=== PATIENT | male | born 1950 | race Two or more races ===

== ENCOUNTER 2017-03-29 12:39 | Inpatient (IN) | payer MEDICARE, MEDICAID ==
[~2017-03-29] VITALS: Ht 165.1 cm; Wt 77.1 kg
[2017-03-29] MEDS ORDERED: Magnesium Citrate Liq Btl ORAL ONE (13:00)
[2017-03-29] MEDS ORDERED: Morphine Sulfate 2mg/ml Inj IVP ONE (13:30)
[2017-03-29 13:32] VITALS: BP 175/107
--- NOTE | 2017-03-29 13:34 | Emergency Room Report ---
History of Present Illness General Chief Complaint: Abdominal Pain Source: Patient, EMS Present Illness HPI 66YOM BIBEMS with abdominal pain and unable to defecate since yesterday. Associated with gross hematuria. No nausea/vomiting, dysuria, polyuria. Last time gross hematuria was "years ago" when he had "surgery on my prostate." Denies ASA, other AC Denies other PMX Doesnt smoke. Allergies: Coded Allergies: No Known Allergies (Unverified , 03/29/17) Patient History Past Medical History: none Past Surgical History: other - prostate surgery Pertinent Family History: none Social History: Denies: alcohol use, drug use, smoking Immunizations: UTD Reviewed Nursing Documentation: PMH: Agreed, PSxH: Agreed Nursing Documentation-PMH Past Medical History: No Stated History Review of Systems All Other Systems: negative except mentioned in HPI Physical Exam Vital Signs Date Time Temp Pulse Resp B/P Pulse Ox O2 Delivery O2 Flow Rate FiO2 03/29/17 12:33 98.2 80 18 168/94 98 Room Air Sp02 EP Interpretation: reviewed, normal General Appearance: normal inspection, well appearing, no apparent distress, alert, GCS 15, non-toxic Head: normocephalic, atraumatic Eyes: bilateral eye EOMI, bilateral eye PERRL ENT: normal ENT inspection, hearing grossly normal, normal voice Neck: normal inspection, full range of motion, supple, no bony tend Respiratory: normal inspection, lungs clear, normal breath sounds, no respiratory distress, no retraction, no wheezing Cardiovascular #1: regular rate, rhythm, no edema Gastrointestinal: normal inspection, normal bowel sounds, non tender, soft, no guarding, no hernia, other - Distended abdomen. Mass ttp suprapubic area Genitourinary: other - Bedside sono: Masslike structure abutting/?invading bladder wall. 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 Afebrile. - Likely from prostate/bladder mass seen on bedside sono - Distended bladder likely compressing rectum, causing constipation - CT with 9x7x9 mass vs hematoma vs both? Also bilateral perineprhc fluid and bilateral hydroureternephrosis likely d/t obstruction - Dr Yi from Urology consulted, placed suprapubic cath bedside after RN unable to irrigate/withdraw urine/blood with placed hernandez. - Patient to go to ER in morning. - Labs: Leuks elevated. H&H stable. [place]. - Dr Curiel endorsed for med/surg admission at 530pm Last Vital Signs Date Time Temp Pulse Resp B/P Pulse Ox O2 Delivery O2 Flow Rate FiO2 03/29/17 12:33 98.2 80 18 168/94 98 Room Air Status: improved Disposition: ADMITTED INPATIENT Condition: Serious CORETTA SIMMONS M.D. Mar 29, 2017 13:34
[2017-03-29 13:45] LABS: ALBUMIN/GLOBULIN RATIO 1.5 (1.0-2.7); CALCIUM 10.4 mg/dL (8.6-10.2); CREATININE 1.3 mg/dL (0.7-1.2); GLOMERULAR FILTRATION RATE 55.2 mL/min (>60); POTASSIUM 4.2 mEQ/L (3.4-4.9); TOTAL PROTEIN 7.3 g/dL (6.6-8.7)
[2017-03-29 13:52] LABS: MEAN CORPUSCULAR HEMOGLOBIN 30.7 PG (27.0-31.0); MEAN CORPUSCULAR HGB CONC 33.2 G/DL (32.0-36.0); MEAN CORPUSCULAR VOLUME 92 FL (80-99); MEAN PLATELET VOLUME 6.8 FL (6.5-10.1); PLATELET COUNT 291 K/UL (150-450); RED BLOOD COUNT 4.51 M/UL (4.70-6.10); RED CELL DISTRIBUTION WIDTH 11.2 % (11.6-14.8); WHITE BLOOD COUNT 13.6 K/UL (4.8-10.8)
[2017-03-29] MEDS ORDERED: NKM (14:07)
[2017-03-29 14:32] LABS: LYMPHOCYTES % (MANUAL) 7 % (20-45); NEUTROPHILS % (MANUAL) 90 % (45-75); TOTAL CELLS COUNTED 100
[2017-03-29 14:33] LABS: BAND NEUTROPHILS % (MANUAL) 0 % (0-8); BASOPHILS % (MANUAL) 0 % (0-2); EOSINOPHILS % (MANUAL) 0 % (0-3); PLATELET ESTIMATE ADEQUATE; PLATELET MORPHOLOGY NORMAL
[2017-03-29] MEDS ORDERED: Lidocaine 1% MPF 10mg/ml 5ml ONE (17:25)
[2017-03-29] MEDS ORDERED: Lidocaine 1% MPF 10mg/ml 5ml IM ONE (17:30)
--- NOTE | 2017-03-29 18:20 | Consultation ---
History of Present Illness General Date patient seen: Mar 29, 2017 Time patient seen: 18:12 Chief Complaint: Abdominal Pain Reason for Consultation: hematuria, retention Present Illness HPI 66 yo male with hx of laser TURP 8 years ago comes reporting 24 hours of abdominal pain, inability to void and defacate. Noted blood clots yesterday. Reports 0 symptoms prior to yesterday. [place] like he had been voiding fine and had no other complaints. Here in ER unable to void, imaging shows significant clot retention. Unable to pass hernandez by nursing staff Allergies: Coded Allergies: No Known Allergies (Unverified , 03/29/17) Medication History Scheduled No Known Medications* (NKM - No Known Medications*), 0 ., (Reported) Patient History History Provided By: Patient Healthcare decision maker Resuscitation status Advanced Directive on File Past Medical/Surgical History Past Medical/Surgical History: (1) Abdominal pain (2) [place] (acute kidney injury) (3) S/P TURP Review of Systems Constitutional: Denies: chills, fever, malaise, no symptoms, other, see HPI, sweats, weakness Eye: Denies: acuity changes, blurred vision, discharge, double vision, eye pain , no symptoms, nose congestion, nose pain, other, see HPI, tearing ENT: Denies: ear discharge, ear pain, hearing loss, mouth pain, nasal discharge , no symptoms, nose congestion, nose pain, other, see HPI, throat pain, throat swelling Respiratory: Denies: [place], cough, no symptoms, orthopnea, other, see HPI, shortness of breath, sputum, stridor, wheezing Cardiovascular: Denies: PND, chest pain, edema, no symptoms, other, palpitations, see HPI, syncope Gastrointestinal: Reports: abdominal pain, constipation Genitourinary: Reports: hematuria, pain Musculoskeletal: Denies: back pain, gout, joint pain, joint swelling, muscle pain, muscle stiffness, no symptoms, other, see HPI Skin: Denies: change in color, change in hair/nails, dryness, lesions, no symptoms, other, rash, see HPI Psychiatric: Denies: HI, SI, anxiety, depressed feelings, emotional problems, hallucinations, no symptoms, other, prior hx, see HPI Neurological: Denies: dizziness, focal weakness, headache, no symptoms, numbness, other, paresthesia, see HPI, seizure, syncope, tingling, tremors Endocrine: Denies: excessive sweating, flushing, increased thirst, increased urine, intolerance to temperature, no symptoms, other, see HPI, unexplained weight loss Hematologic/Lymphatic: Denies: anemia, blood clots, diathesis, easy bleeding, easy bruising, no symptoms, other, see HPI, swollen glands Physical Exam General Appearance: moderate distress HEENT: atraumatic Neck: non-tender Respiratory/Chest: lungs clear Cardiovascular/Chest: normal rate, regular rhythm Abdomen: soft, distended, tender Genitourinary/Rectal: blood at urethral meatus Extremities: non-tender Skin Exam: warm/dry Neurologic: no motor/sensory deficits Last 24 Hour Vital Signs Date Time Temp Pulse Resp B/P Pulse Ox O2 Delivery O2 Flow Rate FiO2 03/29/17 13:32 98.2 115 20 175/107 99 Room Air 03/29/17 12:33 98.2 80 18 168/94 98 Room Air Laboratory Tests Test 03/29/17 13:30 White Blood Count 13.6 K/UL (4.8-10.8) H Red Blood Count 4.51 M/UL (4.70-6.10) L Hemoglobin 13.8 G/DL (14.2-18.0) L Hematocrit 41.7 % (42.0-52.0) L Mean Corpuscular Volume 92 FL (80-99) Mean Corpuscular Hemoglobin 30.7 PG (27.0-31.0) Mean Corpuscular Hemoglobin Concent 33.2 G/DL (32.0-36.0) Red Cell Distribution Width 11.2 % (11.6-14.8) L Platelet Count 291 K/UL (150-450) Mean Platelet Volume 6.8 FL (6.5-10.1) Neutrophils (%) (Auto) % (45.0-75.0) Lymphocytes (%) (Auto) % (20.0-45.0) Monocytes (%) (Auto) % (1.0-10.0) Eosinophils (%) (Auto) % (0.0-3.0) Basophils (%) (Auto) % (0.0-2.0) Differential Total Cells Counted 100 Neutrophils % (Manual) 90 % (45-75) H Lymphocytes % (Manual) 7 % (20-45) L Monocytes % (Manual) 3 % (1-10) Eosinophils % (Manual) 0 % (0-3) Basophils % (Manual) 0 % (0-2) Band Neutrophils 0 % (0-8) Platelet Estimate Adequate Platelet Morphology Normal Red Blood Cell Morphology Normal Prothrombin Time Pending Prothromb Time International Ratio Pending Activated Partial Thromboplast Time Pending Sodium Level 143 mEQ/L (135-145) Potassium Level 4.2 mEQ/L (3.4-4.9) Chloride Level 103 mEQ/L (98-107) Carbon Dioxide Level 24 mEQ/L (20-30) Anion Gap 16 (5-15) H Blood Urea Nitrogen 22 mg/dL (7-23) Creatinine 1.3 mg/dL (0.7-1.2) H Estimat Glomerular Filtration Rate 55.2 mL/min (>60) Glucose Level 196 mg/dL (74-106) H Calcium Level 10.4 mg/dL (8.6-10.2) H Total Bilirubin 0.7 mg/dL (0.0-1.2) Aspartate Amino Transf (AST/SGOT) 16 U/L (5-40) Alanine Aminotransferase (ALT/SGPT) 11 U/L (3-41) Alkaline Phosphatase 59 U/L (40-129) Total Protein 7.3 g/dL (6.6-8.7) Albumin 4.4 g/dL (3.5-5.2) Globulin 2.9 g/dL Albumin/Globulin Ratio 1.5 (1.0-2.7) Lipase 21 U/L (< 60) Height (Feet): 5 Height (Inches): 4.00 Weight (Pounds): [address]: distended bladder, 9 cm worth of clot vs. mass sitting at base of bladder, large prostate. Bilateral hydro with perinephric fluid collection and stranding Procedure: Under sterile conditions, urethral catheterization attempted with 20 and [address] as well as coudes. Unable to pass. Patient counseled on risks of SP tube. Agreed to move forward. 2 finger breadths above pubic symphysis sterilized. 10 mL 1 % lidocaine infused under skin. Finder needle used to confirm placement in bladder, immediate evacuation of dark red foul smelling urine. IntegenX 14 italian SP tube introducer kit used to puncture bladder successfully. Incision made 2 finger breadths above pubic symphysis prior to using SP tube introducer. 10 mL water filled in balloon. Immediate evacuation of 500 mL dark bloody urine. Manual irrigation of another approximately 1.5 Liters of bloody urine and clots. At end of irrigation urine was light red/brown. 1-0 silk used to secure SP tube to skin. Assessment/Plan Status: stable Assessment/Plan 66 yo male with likely progressive outlet obstruction due to some sort of urethral obstruction. Given hx of TURP, possible bladder neck contracture, chronic retention, leading to UTI, hematuria and ultimately kidney injury/ hydronephrosis. Evacuated significant amount of bloody urine. Need to evaluate lower urinary tract tomorrow under anesthesia. 1. NPO p MN 2. OR tomorrow at 0800 for cystoscopy, clot evacuation, catheter placement. Steven Yi M.D. Mar 29, 2017 18:20
[2017-03-29] MEDS ORDERED: Milk of Magnesia 30ml Ud ORAL PRN (18:30)
[2017-03-29] MEDS ORDERED: Acetaminophen 650 MG SUPP RECTAL PRN ×2 (18:30)
[2017-03-29] MEDS ORDERED: Norco 5mg/325mg tab ORAL PRN (18:30)
[2017-03-29] MEDS ORDERED: Hydromorphone 0.5mg/0.5ml inj IVP PRN (18:30)
[2017-03-29 18:36] VITALS: BP 115/74
[2017-03-29 18:51] LABS: INR 0.9 (0.9-1.1); PROTHROMBIN TIME 9.4 SEC (9.30-11.50)
[2017-03-29 19:10] VITALS: BP 152/89
--- NOTE | 2017-03-29 19:16 | History and Physical Report ---
DATE OF ADMISSION: 03/29/2017 CHIEF COMPLAINT AND REASON FOR HOSPITALIZATION: The patient is admitted with hematuria, bladder mass, unable to void, and abdominal pain. HISTORY OF PRESENT ILLNESS: The patient is a 66-year-old male, who had a prostatectomy in the late . He presented with hematuria and abdominal pain. He has currently been in good health. PAST SURGICAL HISTORY: Prostatectomy in the late . He said there was no definite cancer. CURRENT MEDICATIONS: None. ALLERGIES: None known. HABITS: He denies smoking or alcohol. SYSTEM REVIEW: HEENT: Vision and hearing are good. ENDOCRINE: No known diabetes or thyroid disease. PULMONARY: No asthma, TB, or chronic cough. CARDIAC: No angina, myocardial infarction, or palpitations. GASTROINTESTINAL: No history of GI bleeding or ulcers or chronic abdominal pain. GENITOURINARY: See above. NEUROLOGIC: No CVA, syncope, or seizures. PHYSICAL EXAMINATION: GENERAL: The patient is a well-developed man, alert, looking uncomfortable in bed, seen in the emergency department. VITAL SIGNS: Temperature 98.2 degrees, pulse 80, respirations 18, blood pressure 168/94, and O2 saturation is 98%. HEENT: Sclerae nonicteric. Ocular motion intact in all directions. Oral mucosa moist. NECK: No adenopathy. LUNGS: Clear. HEART: Regular rhythm. No murmur. ABDOMEN: Soft. Liver and spleen not palpable. There is tenderness in the suprapubic area. GENITOURINARY: Penis and testes are normal. There is some bloody urine in the bedsheet. RECTAL: Deferred. Urologist will see the patient. EXTREMITIES: No edema, cyanosis, or clubbing. Muscle mass is normal. NEUROLOGIC: He is alert and oriented. Cranial nerves are intact. PERTINENT LABORATORY DATA: CT showed a 9 x 7 x 9 cm mass versus hematoma in the bladder. He also has bilateral perinephric fluid and bilateral hydroureteral nephrosis. The other labs show white count of 13.6, hemoglobin of 13.8, and platelets 291,000. Electrolytes normal. BUN 22, creatinine 1.3, glucose 196, and calcium 10.4. Urinalysis not available. IMPRESSION: Acute likely on chronic obstructive uropathy with a bladder mass and gross hematuria. PLAN: The patient will be seen by Urology and will need a catheter or suprapubic treatment and probable cysto and further evaluation. He will be hydrated. We will give him comfort measures. We will give him empiric antibiotics in case he has superimposed urinary tract infection. Thank you so much. Yogesh Curiel M.D. DR: JOSÉ JOB#: [id number] CC:
[2017-03-29 20:00] VITALS: BP 137/82
[2017-03-29 20:07] VITALS: BP 152/89
[2017-03-29] MEDS: Docusate 100mg cap ORAL SCH (20:44)
[2017-03-29] MEDS: ceFAZolin 1gm in D5W 55ml IVP SCH (20:45)
[2017-03-29] MEDS ORDERED: Zolpidem 5mg tab ORAL PRN (21:00)
[2017-03-30] VITALS (13 sets, daily range): BP systolic 109–139; BP diastolic 54–91
[2017-03-30] MEDS: ceFAZolin 1gm in D5W 55ml IVP SCH ×3 (05:00→21:42)
[2017-03-30] MEDS ORDERED: Propofol 10mg/ml 20ml IV ONE (07:30)
[2017-03-30] MEDS ORDERED: LR 1000ml ONE (08:00)
[2017-03-30] MEDS ORDERED: Midazolam 2mg/2ml Inj ONE (08:00)
[2017-03-30] MEDS ORDERED: fentaNYL 100 mcg/2 mL IV ONE (08:00)
[2017-03-30] MEDS ORDERED: Sterile Water Irrig 1000ml IRRIG ONE (08:00)
--- NOTE | 2017-03-30 08:13 | Pre-Procedure Note/Attestation ---
Pre-Procedure Note/Attestation Complete Prior to Procedure Planned Procedure: not applicable Procedure Narrative: cystoscopy, clot evacuation, catheter placement Indications for Procedure Pre-Operative Diagnosis: hematuria, urinary retention Attestation I attest that I discussed the nature of the procedure; its benefits; risks and complications; and alternatives (and the risks and benefits of such alternatives ), prior to the procedure, with the patient (or the patient's legal maintenance representative). I attest that, if there was a reasonable possibility of needing a blood transfusion, the patient (or the patient's legal maintenance representative) was given the [facility] standardized written summary, pursuant to the Ignacio Luis M Blood Safety Act ([place] Health and Safety Code # 1645, as amended). I attest that I re-evaluated the patient just prior to the surgery and that there has been no change in the patient's H&P, except as documented below: Steven Yi M.D. Mar 30, 2017 08:13
[2017-03-30] MEDS ORDERED: Sterile Water For Irrig 2000ml IRRIG ONE (08:48)
[2017-03-30] MEDS ORDERED: NS Irrig 4000ml IRRIG ONE (08:48)
[2017-03-30] MEDS: Docusate 100mg cap ORAL SCH ×2 (09:00→21:42)
--- NOTE | 2017-03-30 09:05 | Anethesia Preoperative Eval ---
Anesthesia Pre-op PMH/ROS General Date of Evaluation: Mar 30, 2017 Time of Evaluation: 08:22 Anesthesiologist: Michelle ASA Score: ASA 3 Mallampati Score Class I : Soft palate, uvula, fauces, pillars visible Class II: Soft palate, uvula, fauces visible Class III: Soft palate, base of uvula visible Class IV: Only hard plate visible Mallampati Classification: Class II Surgeon: Kassidy Diagnosis: Hematuria Surgical Procedure: Cysto Blood clots evacuation Anesthesia History: none Family History: no anesthesia problems Allergies: Coded Allergies: No Known Allergies (Unverified , 03/29/17) Medications: see eMAR Past Medical History Cardiovascular: Reports: HTN - borderline, Denies: CAD, [place], arrhythmia, other, valve dz Pulmonary: Denies: COPD, HÉCTOR, asthma, other Gastrointestinal/Genitourinary: 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 Anesthesia Pre-op Phys. Exam Physician Exam Last Vital Signs Date Time Temp Pulse Resp B/P Pulse Ox O2 Delivery O2 Flow Rate FiO2 03/30/17 04:00 98.6 84 17 136/83 97 Room Air Constitutional: NAD Neurologic: CN 2-12 intact Cardiovascular: RRR, no M/R/G Respiratory: CTA Gastrointestinal: other - distended Airway Exam Mallampati Score: Class II MO: full Neck: flexible ROM: limited Teeth: missing Dentures: no lower, no upper Anesthesia Pre-op A/P Labs Hematology Test 03/29/17 13:30 White Blood Count 13.6 K/UL (4.8-10.8) H Red Blood Count 4.51 M/UL (4.70-6.10) L Hemoglobin 13.8 G/DL (14.2-18.0) L Hematocrit 41.7 % (42.0-52.0) L Mean Corpuscular Volume 92 FL (80-99) Mean Corpuscular Hemoglobin 30.7 PG (27.0-31.0) Mean Corpuscular Hemoglobin Concent 33.2 G/DL (32.0-36.0) Red Cell Distribution Width 11.2 % (11.6-14.8) L Platelet Count 291 K/UL (150-450) Mean Platelet Volume 6.8 FL (6.5-10.1) Neutrophils (%) (Auto) % (45.0-75.0) Lymphocytes (%) (Auto) % (20.0-45.0) Monocytes (%) (Auto) % (1.0-10.0) Eosinophils (%) (Auto) % (0.0-3.0) Basophils (%) (Auto) % (0.0-2.0) Differential Total Cells Counted 100 Neutrophils % (Manual) 90 % (45-75) H Lymphocytes % (Manual) 7 % (20-45) L Monocytes % (Manual) 3 % (1-10) Eosinophils % (Manual) 0 % (0-3) Basophils % (Manual) 0 % (0-2) Band Neutrophils 0 % (0-8) Platelet Estimate Adequate Platelet Morphology Normal Red Blood Cell Morphology Normal Coagulation Test 03/29/17 13:30 Prothrombin Time 9.4 SEC (9.30-11.50) Prothromb Time International Ratio 0.9 (0.9-1.1) Activated Partial Thromboplast Time 21 SEC (23-33) L Chemistry Test 03/29/17 13:30 Sodium Level 143 mEQ/L (135-145) Potassium Level 4.2 mEQ/L (3.4-4.9) Chloride Level 103 mEQ/L (98-107) Carbon Dioxide Level 24 mEQ/L (20-30) Anion Gap 16 (5-15) H Blood Urea Nitrogen 22 mg/dL (7-23) Creatinine 1.3 mg/dL (0.7-1.2) H Estimat Glomerular Filtration Rate 55.2 mL/min (>60) Glucose Level 196 mg/dL (74-106) H Calcium Level 10.4 mg/dL (8.6-10.2) H Total Bilirubin 0.7 mg/dL (0.0-1.2) Aspartate Amino Transf (AST/SGOT) 16 U/L (5-40) Alanine Aminotransferase (ALT/SGPT) 11 U/L (3-41) Alkaline Phosphatase 59 U/L (40-129) Total Protein 7.3 g/dL (6.6-8.7) Albumin 4.4 g/dL (3.5-5.2) Globulin 2.9 g/dL Albumin/Globulin Ratio 1.5 (1.0-2.7) Lipase 21 U/L (< 60) Risk Assessment & Plan Assessment: ASA 3 Plan: GA with LMA Status Change Before Surgery: No Pre-Antibiotics Drug: Ancef 1 gr. Given Within 1 Hr of Incision: Yes Time Given: 08:31 NIA RIOS M.D. Mar 30, 2017 09:05
--- NOTE | 2017-03-30 09:11 | Diagnostic Imaging Report ---
Indication: Abdominal pain Technique: Continuous helical transaxial imaging of the abdomen and pelvis was obtained from the lung bases to the pubic symphysis during intravenous contrast administration. Coronal 2-D reformats were also obtained. Study obtained in a Siemens sensation [address] Total Dose length Product (DLP): [address] Dose Index Volume (CTDIvol): 17 mGy Comparison: None Findings: Urinary bladder is markedly distended. There is hematoma present within the bladder lumen. There is bilateral hydronephrosis likely secondary to this with perinephric stranding. The prostate is enlarged and heterogeneous in appearance measuring approximately 6 x 5.8 x 7.3 cm. Basilar atelectasis demonstrated. Liver attenuation is slightly low. Gallbladder, adrenal glands, pancreas and spleen are unremarkable. No evidence of bowel obstruction or free air. Mild arterial vascular calcifications and tortuosity of the aorta noted. Mild compression fracture deformity of the T12 vertebra noted. Appendix is normal. Impression: Bladder outlet impediment to due to large intraluminal hematoma. Associated moderate bilateral hydronephrosis and perinephric stranding. Superimposed infection is not excludable. Prostate hypertrophy. Mild atherosclerotic vascular disease Basilar atelectasis Dr. Maldonado has communicated the preliminary results to the Emergency Department. There are no significant discrepancies. The CT scanner at [facility] is accredited by the [employer] and the scans are performed using dose optimization techniques as appropriate to a performed exam including Automatic Exposure control.
[2017-03-30] MEDS ORDERED: Meperidine 25mg/0.5ml Inj IV PRN (09:15)
[2017-03-30] MEDS ORDERED: Hydromorphone 0.5mg/0.5ml inj IVP PRN (09:15)
[2017-03-30] MEDS ORDERED: DiphenhydrAMINE 50mg/ml Inj IVP PRN (09:15)
[2017-03-30] MEDS ORDERED: LR 1000ml 1,000 ML IVLG SCH (09:30)
--- NOTE | 2017-03-30 10:01 | Immediate Post-Op Evaluation ---
Immediate Post-Op Evalulation Immediate Post-Op Evalulation Procedure: Cysto, clots evacuation, partial TUPR Date of Evaluation: Mar 30, 2017 Time of Evaluation: 10:00 IV Fluids: 600 Blood Products: none Estimated Blood Loss: 150 Urinary Output: n/a Blood Pressure Systolic: 125 Blood Pressure Diastolic: 78 Pulse Rate: 81 Respiratory Rate: 20 O2 Sat by Pulse Oximetry: 99 Temperature (Fahrenheit): 97.8 Pain Score (1-10): 2 Nausea: No Vomiting: No Complications none Patient Status: reacts, patent, none Hydration Status: adequate NIA RIOS M.D. Mar 30, 2017 10:01
--- NOTE | 2017-03-30 10:02 | Brief Operative Note ---
Immediate Post Operative Note Operative Note Pre-op Diagnosis: hematuria, urinary retention Procedure: cysto, partial TURP, clot evacuation, catheter placement Post-op Diagnosis: same as pre-op Surgeon: gee Tax Revenue Officer: nicola Anesthesia: general Specimen: none Complications: none Condition: stable Estimated Blood Loss: minimal Drains: other - [address] hernandez 30 mL water in balloon Steven Yi M.D. Mar 30, 2017 10:02
--- NOTE | 2017-03-30 10:10 | Urology Progress Note ---
Assessment/Plan Status: stable Assessment/Plan Tolerated cystoscopy well today. Old clots evacuated, likely source if prostate. large bore urethral hernandez placed, on continuous irrigation. SP tube clamped 1. f/u CBC, CMP today 2. continuous irrigation for 24 hours 3. re-evaluate urine color tomorrow afternoon 4. leave SP tube in place for now, plugged Subjective Date patient seen: Mar 30, 2017 Time patient seen: 10:07 ROS Limited/Unobtainable: No Constitutional: Denies: chills, diaphoresis, fever, malaise, no symptoms, other , weakness HEENT: Denies: blurred vision, double vision, ear discharge, ear pain, eye pain , mouth pain, mouth swelling, no symptoms, nose congestion, nose pain, other, tearing, throat pain, throat swelling Cardiovascular: Denies: chest pain, edema, irregular heart rate, lightheadedness, no symptoms, other, palpitations, syncope Respiratory: Denies: SOB at rest, SOB with excertion, cough, no symptoms, orthopnea, other, shortness of breath, sputum, stridor, wheezing Gastrointestinal/Abdominal: Reports: abdominal pain Genitourinary: Reports: burning Neurologic/Psychiatric: Denies: anxiety, depressed, emotional problems, headache, no symptoms, numbness, other, paresthesia, pre-existing deficit, seizure, tingling, tremors, weakness Endocrine: Denies: excessive sweating, flushing, increased hunger, increased thirst, increased urine, intolerance to cold, intolerance to heat, no symptoms, other, unexplained weight gain, unexplained weight loss Hematologic/Lymphatic: Denies: anemia, easy bleeding, easy bruising, no symptoms, other Allergies: Coded Allergies: No Known Allergies (Unverified , 03/29/17) Subjective trouble irrigating catheter this AM, feeling more bloating, generally feels better Objective Last 24 Hour Vital Signs Date Time Temp Pulse Resp B/P Pulse Ox O2 Delivery O2 Flow Rate FiO2 03/30/17 10:01 81 20 99 03/30/17 08:00 96.4 82 18 137/86 95 Room Air 03/30/17 04:00 98.6 84 17 136/83 97 Room Air 03/30/17 00:00 98.2 84 17 114/89 97 Room Air 03/29/17 20:07 92 24 152/89 97 Room Air 03/29/17 20:07 97.7 92 24 152/89 97 Room Air 03/29/17 20:00 97.0 86 24 137/82 97 Room Air 03/29/17 19:10 97.7 92 24 152/89 97 Room Air 03/29/17 18:36 97.7 78 18 115/74 98 Room Air 03/29/17 13:32 98.2 115 20 175/107 99 Room Air 03/29/17 12:33 98.2 80 18 168/94 98 Room Air Intake and Output 03/29/17 03/30/17 19:00 07:00 Intake Total 525 ml Output Total 2000 ml 275 ml Balance -2000 ml 250 ml Intake IV Total 525 ml Output Urine Total 2000 ml 275 ml # Voids 1 # Bowel Movements 1 Laboratory Tests 03/29/17 13:30: White Blood Count 13.6H, Red Blood Count 4.51L, Hemoglobin 13.8L, Hematocrit 41.7L, Mean Corpuscular Volume 92, Mean Corpuscular Hemoglobin 30.7, Mean Corpuscular Hemoglobin Concent 33.2, Red Cell Distribution Width 11.2L, Platelet Count 291, Mean Platelet Volume 6.8, Neutrophils (%) (Auto) , Lymphocytes (%) (Auto) , Monocytes (%) (Auto) , Eosinophils (%) (Auto) , Basophils (%) (Auto) , Differential Total Cells Counted 100, Neutrophils % ( Manual) 90H, Lymphocytes % (Manual) 7L, Monocytes % (Manual) 3, Eosinophils % ( Manual) 0, Basophils % (Manual) 0, Band Neutrophils 0, Platelet Estimate Adequate, Platelet Morphology Normal, Red Blood Cell Morphology Normal, Prothrombin Time 9.4, Prothromb Time International Ratio 0.9, Activated Partial Thromboplast Time 21L, Sodium Level 143, Potassium Level 4.2, Chloride Level 103 , Carbon Dioxide Level 24, Anion Gap 16H, Blood Urea Nitrogen 22, Creatinine 1.3H, Estimat Glomerular Filtration Rate 55.2, Glucose Level 196H, Calcium Level 10.4H, Total Bilirubin 0.7, Aspartate Amino Transf (AST/SGOT) 16, Alanine Aminotransferase (ALT/SGPT) 11, Alkaline Phosphatase 59, Total Protein 7.3, Albumin 4.4, Globulin 2.9, Albumin/Globulin Ratio 1.5, Lipase 21 Height (Feet): 5 Height (Inches): 5.00 Weight (Pounds): 170 General Appearance: mild distress Abdomen: soft, distended Genitourinary/Rectal: other - SP tube in place Steven Yi M.D. Mar 30, 2017 10:10
[2017-03-30 11:28] LABS: BASOPHILS % (AUTO) 0.3 % (0.0-2.0); EOSINOPHILS % (AUTO) 0.1 % (0.0-3.0); MEAN CORPUSCULAR HEMOGLOBIN 31.1 PG (27.0-31.0); MEAN CORPUSCULAR HGB CONC 32.8 G/DL (32.0-36.0); MEAN CORPUSCULAR VOLUME 95 FL (80-99); MEAN PLATELET VOLUME 6.4 FL (6.5-10.1); MONOCYTES % (AUTO) 7.8 % (1.0-10.0); NEUTROPHILS % (AUTO) 80.8 % (45.0-75.0); PLATELET COUNT 233 K/UL (150-450); RED BLOOD COUNT 3.52 M/UL (4.70-6.10); WHITE BLOOD COUNT 15.1 K/UL (4.8-10.8)
[2017-03-30 11:39] LABS: ANION GAP 12 (5-15); CARBON DIOXIDE 28 mEQ/L (20-30); CHLORIDE 108 mEQ/L (98-107); CREATININE 1.2 mg/dL (0.7-1.2); GLOMERULAR FILTRATION RATE > 60 mL/min (>60); HEMOLYSIS 4; POTASSIUM 4.6 mEQ/L (3.4-4.9); SODIUM 148 mEQ/L (135-145)
--- NOTE | 2017-03-30 12:40 | General Progress Note ---
Assessment/Plan Problem List: (1) Constipation ICD Codes: K59.00 - Constipation, unspecified SNOMED: 39965022 Qualifiers: Qualified Codes: K59.00 - Constipation, unspecified (2) Hyperglycemia ICD Codes: R73.9 - Hyperglycemia, unspecified SNOMED: 50755191 (3) Gross hematuria ICD Codes: R31.0 - Gross hematuria SNOMED: 992771259 (4) Bladder mass ICD Codes: N32.89 - Other specified disorders of bladder SNOMED: 705131309 (5) Bilateral hydronephrosis ICD Codes: N13.30 - Unspecified hydronephrosis SNOMED: 16184025 (6) [place] (acute kidney injury) ICD Codes: N17.9 - Acute kidney failure, unspecified SNOMED: 53692100 Assessment/Plan observe post turp, bladder irrigation Subjective Constitutional: Reports: other - mild pain postop HEENT: Reports: no symptoms Cardiovascular: Reports: no symptoms Respiratory: Reports: no symptoms Gastrointestinal/Abdominal: Reports: no symptoms Genitourinary: Reports: hematuria Neurologic/Psychiatric: Reports: no symptoms Endocrine: Reports: no symptoms Allergies: Coded Allergies: No Known Allergies (Unverified , 03/29/17) Objective Last 24 Hour Vital Signs Date Time Temp Pulse Resp B/P Pulse Ox O2 Delivery O2 Flow Rate FiO2 03/30/17 11:00 98.3 77 14 139/78 100 Nasal Cannula 3.0 03/30/17 10:45 80 15 135/87 100 Nasal Cannula 3.0 03/30/17 10:30 84 16 129/91 100 Simple Mask 6.0 03/30/17 10:15 70 15 124/79 100 Simple Mask 6.0 03/30/17 10:04 77 14 118/85 100 Simple Mask 6.0 03/30/17 10:01 81 20 99 03/30/17 09:59 79 16 117/85 100 Simple Mask 6.0 03/30/17 09:54 98.0 81 17 125/86 100 Simple Mask 6.0 03/30/17 08:00 96.4 82 18 137/86 95 Room Air 03/30/17 04:00 98.6 84 17 136/83 97 Room Air 03/30/17 00:00 98.2 84 17 114/89 97 Room Air 03/29/17 20:07 92 24 152/89 97 Room Air 03/29/17 20:07 97.7 92 24 152/89 97 Room Air 03/29/17 20:00 97.0 86 24 137/82 97 Room Air 03/29/17 19:10 97.7 92 24 152/89 97 Room Air 03/29/17 18:36 97.7 78 18 115/74 98 Room Air 03/29/17 13:32 98.2 115 20 175/107 99 Room Air Intake and Output 03/29/17 03/30/17 19:00 07:00 Intake Total 525 ml Output Total 2000 ml 275 ml Balance -2000 ml 250 ml Intake IV Total 525 ml Output Urine Total 2000 ml 275 ml # Voids 1 # Bowel Movements 1 Laboratory Tests 03/29/17 13:30: White Blood Count 13.6H, Red Blood Count 4.51L, Hemoglobin 13.8L, Hematocrit 41.7L, Mean Corpuscular Volume 92, Mean Corpuscular Hemoglobin 30.7, Mean Corpuscular Hemoglobin Concent 33.2, Red Cell Distribution Width 11.2L, Platelet Count 291, Mean Platelet Volume 6.8, Neutrophils (%) (Auto) , Lymphocytes (%) (Auto) , Monocytes (%) (Auto) , Eosinophils (%) (Auto) , Basophils (%) (Auto) , Differential Total Cells Counted 100, Neutrophils % ( Manual) 90H, Lymphocytes % (Manual) 7L, Monocytes % (Manual) 3, Eosinophils % ( Manual) 0, Basophils % (Manual) 0, Band Neutrophils 0, Platelet Estimate Adequate, Platelet Morphology Normal, Red Blood Cell Morphology Normal, Prothrombin Time 9.4, Prothromb Time International Ratio 0.9, Activated Partial Thromboplast Time 21L, Sodium Level 143, Potassium Level 4.2, Chloride Level 103 , Carbon Dioxide Level 24, Anion Gap 16H, Blood Urea Nitrogen 22, Creatinine 1.3H, Estimat Glomerular Filtration Rate 55.2, Glucose Level 196H, Calcium Level 10.4H, Total Bilirubin 0.7, Aspartate Amino Transf (AST/SGOT) 16, Alanine Aminotransferase (ALT/SGPT) 11, Alkaline Phosphatase 59, Total Protein 7.3, Albumin 4.4, Globulin 2.9, Albumin/Globulin Ratio 1.5, Lipase 21 03/30/17 11:10: White Blood Count 15.1H, Red Blood Count 3.52L, Hemoglobin 11.0L, Hematocrit 33.4L, Mean Corpuscular Volume 95, Mean Corpuscular Hemoglobin 31.1H, Mean Corpuscular Hemoglobin Concent 32.8, Red Cell Distribution Width 12.0, Platelet Count 233, Mean Platelet Volume 6.4L, Neutrophils (%) (Auto) 80.8H, Lymphocytes (%) (Auto) 11.0L, Monocytes (%) (Auto) 7.8, Eosinophils (%) (Auto) 0.1, Basophils (%) (Auto) 0.3, Sodium Level 148H, Potassium Level 4.6, Chloride Level 108H, Carbon Dioxide Level 28, Anion Gap 12, Blood Urea Nitrogen 28H, Creatinine 1.2, Estimat Glomerular Filtration Rate > 60, Glucose Level 113H, Calcium Level 9.0 Height (Feet): 5 Height (Inches): 5.00 Weight (Pounds): 170 General Appearance: no apparent distress, alert EENT: normal ENT inspection Neck: normal alignment Cardiovascular: normal rate Respiratory/Chest: lungs clear Abdomen: non tender, other - sp tube plugged Extremities: other - no edema VU BEAVERS Mar 30, 2017 12:40
--- NOTE | 2017-03-30 12:46 | Operative Note - Dictated ---
DATE OF OPERATION: 03/30/2017 NAME OF PRIMARY SURGEON: Steven Yi M.D. PREOPERATIVE DIAGNOSIS: Hematuria. POSTOPERATIVE DIAGNOSES: 1. Hematuria. 2. BPH. PROCEDURE PERFORMED: Cystoscopy, partial transurethral resection of prostate, clot evacuation, and complex catheter placement. ANESTHESIA: General. EBL: Less than 50 mL. COMPLICATIONS: None. DRAINS: A 22-Rwandan, three-way Hale catheter with 30 mL of water in the balloon. Pre-existing 14-Rwandan suprapubic catheter. SPECIMEN: None. PREOP HISTORY: This is a very pleasant 66-year-old gentleman, who apparently underwent prostate procedure at [facility] 8 years ago. He reports 24 hours prior to admission, severe pain, increasing abdominal distention, constipation, and hematuria. In the ER, I was unable to be catheterized the suprapubic tube by myself and about 2.5 liters of bloody clotted urine was evacuated from the bladder. I counseled the patient that we will ultimately need to perform cystoscopy as the source of the bleeding has not been addressed and he likely has persistent blood clots. The patient understood that, he needs cystoscopy for further evaluation. He understood the risks and benefits of intervening. Risks including, but not limited to bleeding, infection, bladder injury, ureteral injury, urethral injury, recurrent bleeding, and need for further procedures. The patient understood these risks, signed the consent, and taken to the operating room. OPERATIVE PROCEDURE: The patient brought into the operating room. General anesthesia was achieved easily. He was placed in the dorsal lithotomy position and all pressure points were padded. The perineum was prepped and draped in sterile fashion. He received preoperative antibiotics on the floor. A 23-Rwandan cystoscope sheath was placed. The anterior urethra was free of stricture and otherwise normal. The posterior urethra was entered showing a significantly elevated median lobe with minor intravesical portion and significant lateral lobar hypertrophy. There was an obvious bleeding coming from the median lobe especially at 5 and 7 o'clock region of the prostatic urethra. Within the bladder, the suprapubic tube was seen and there was a large amount of clot. Sudiksha evacuator was used to evacuate approximately 700 mL of old blood clot. The bladder was then interrogated very specifically. Bilateral ureteral orifices were seen. There was moderate trabeculation and a suprapubic tube once again was in good position. At this point, there was obvious bleeding noted at the bladder neck at prostatovesical junction especially at 5 and 7 o'clock and elevated median lobe that seemed to be very bloody and irritated as well. A 27-Rwandan Olympus bipolar resectoscope was placed and the button device was used to fulgurate and resect the median lobe and bleeding at 5 and 7 o'clock. Once adequate hemostasis had been achieved, the bladder was evacuated of any residual clot. Scope was removed and a 22-Rwandan, three-way catheter was placed with the assistance of a catheter guide due to the high nature of the median lobe and an acute angle. A 30 mL of water was filled in the balloon and the catheter was irrigated easily. A light pink urine at the end of the case after was attached to continuous bladder irrigation. The patient tolerated the procedure well. He was woken up and taken to recovery in stable fashion. I was present for the entire case. All instrument counts correct at the end of the case. PLAN: 1. The patient will be observed over the course of today. Continuous irrigation through tomorrow. 2. Followup blood and urine quality tomorrow afternoon. If clear, can go home with Folic catheter and SP tube with plan removing Hale catheter, after the urine quality has improved off irrigation. 3. Likely source prostate bleeding, possible irritation from urinary tract infection as well. Steven Yi DR: SHERLY JOB#: [id number] CC: [email or web address]
[2017-03-31] VITALS: BP 99/63
[2017-03-31 04:00] VITALS: BP 116/65
[2017-03-31] MEDS: ceFAZolin 1gm in D5W 55ml IVP SCH ×3 (05:44→20:51)
--- NOTE | 2017-03-31 07:32 | General Progress Note ---
Assessment/Plan Problem List: (1) Constipation ICD Codes: K59.00 - Constipation, unspecified SNOMED: 41305722 Qualifiers: Qualified Codes: K59.00 - Constipation, unspecified (2) Hyperglycemia ICD Codes: R73.9 - Hyperglycemia, unspecified SNOMED: 71213039 (3) Gross hematuria ICD Codes: R31.0 - Gross hematuria SNOMED: 931517118 (4) Bladder mass ICD Codes: N32.89 - Other specified disorders of bladder SNOMED: 531121028 (5) Bilateral hydronephrosis ICD Codes: N13.30 - Unspecified hydronephrosis SNOMED: 98030441 (6) [place] (acute kidney injury) ICD Codes: N17.9 - Acute kidney failure, unspecified SNOMED: 86753266 Assessment/Plan observe post turp, bladder irrigation, mobilize Subjective Constitutional: Reports: weakness HEENT: Reports: no symptoms Cardiovascular: Reports: no symptoms Respiratory: Reports: no symptoms Gastrointestinal/Abdominal: Reports: no symptoms Genitourinary: Reports: hematuria Neurologic/Psychiatric: Reports: no symptoms Endocrine: Reports: no symptoms Hematologic/Lymphatic: Reports: no symptoms Allergies: Coded Allergies: No Known Allergies (Unverified , 03/29/17) Objective Last 24 Hour Vital Signs Date Time Temp Pulse Resp B/P Pulse Ox O2 Delivery O2 Flow Rate FiO2 03/31/17 04:00 98.1 67 18 116/65 99 Nasal Cannula 2.0 03/31/17 00:00 98.6 78 18 99/63 93 Room Air 03/30/17 20:00 98.6 83 18 109/66 94 Room Air 03/30/17 16:45 97.9 82 20 118/66 97 Nasal Cannula 2.0 03/30/17 12:00 98.3 76 18 126/54 100 Nasal Cannula 3.0 03/30/17 11:00 98.3 77 14 139/78 100 Nasal Cannula 3.0 03/30/17 10:45 80 15 135/87 100 Nasal Cannula 3.0 03/30/17 10:30 84 16 129/91 100 Simple Mask 6.0 03/30/17 10:15 70 15 124/79 100 Simple Mask 6.0 03/30/17 10:04 77 14 118/85 100 Simple Mask 6.0 03/30/17 10:01 81 20 99 03/30/17 09:59 79 16 117/85 100 Simple Mask 6.0 03/30/17 09:54 98.0 81 17 125/86 100 Simple Mask 6.0 03/30/17 08:00 96.4 82 18 137/86 95 Room Air Intake and Output 03/30/17 03/31/17 19:00 07:00 Intake Total 1245 ml 1085 ml Output Total 1050 ml 1100 ml Balance 195 ml -15 ml Intake Oral 120 ml 150 ml IV Total 1125 ml 935 ml Output Urine Total 900 ml 1100 ml Estimated Blood Loss 150 ml Laboratory Tests 03/30/17 11:10: White Blood Count 15.1H, Red Blood Count 3.52L, Hemoglobin 11.0L, Hematocrit 33.4L, Mean Corpuscular Volume 95, Mean Corpuscular Hemoglobin 31.1H, Mean Corpuscular Hemoglobin Concent 32.8, Red Cell Distribution Width 12.0, Platelet Count 233, Mean Platelet Volume 6.4L, Neutrophils (%) (Auto) 80.8H, Lymphocytes (%) (Auto) 11.0L, Monocytes (%) (Auto) 7.8, Eosinophils (%) (Auto) 0.1, Basophils (%) (Auto) 0.3, Sodium Level 148H, Potassium Level 4.6, Chloride Level 108H, Carbon Dioxide Level 28, Anion Gap 12, Blood Urea Nitrogen 28H, Creatinine 1.2, Estimat Glomerular Filtration Rate > 60, Glucose Level 113H, Calcium Level 9.0 Height (Feet): 5 Height (Inches): 5.00 Weight (Pounds): 170 General Appearance: WD/WN, no apparent distress EENT: PERRL/EOMI Neck: non-tender Cardiovascular: normal rate, regular rhythm Respiratory/Chest: lungs clear Abdomen: soft, other - sp tube Extremities: other - no edema VU BEAVERS Mar 31, 2017 07:32
[2017-03-31 08:00] VITALS: BP 135/73
[2017-03-31 08:47] LABS: BASOPHILS % (AUTO) 0.8 % (0.0-2.0); EOSINOPHILS % (AUTO) 4.3 % (0.0-3.0); LYMPHOCYTES % (AUTO) 18.1 % (20.0-45.0); MEAN CORPUSCULAR HGB CONC 33.5 G/DL (32.0-36.0); MEAN CORPUSCULAR VOLUME 96 FL (80-99); MEAN PLATELET VOLUME 7.3 FL (6.5-10.1); MONOCYTES % (AUTO) 7.9 % (1.0-10.0); NEUTROPHILS % (AUTO) 69.1 % (45.0-75.0); PLATELET COUNT 216 K/UL (150-450); RED BLOOD COUNT 3.24 M/UL (4.70-6.10); RED CELL DISTRIBUTION WIDTH 11.8 % (11.6-14.8); WHITE BLOOD COUNT 11.7 K/UL (4.8-10.8)
[2017-03-31 08:52] LABS: ANION GAP 9 (5-15); CALCIUM 8.7 mg/dL (8.6-10.2); CARBON DIOXIDE 29 mEQ/L (20-30); CHLORIDE 104 mEQ/L (98-107); CREATININE 0.8 mg/dL (0.7-1.2); GLOMERULAR FILTRATION RATE > 60 mL/min (>60); HEMOLYSIS 3; SODIUM 142 mEQ/L (135-145)
[2017-03-31] MEDS ORDERED: NS Irrig 4000ml IRRIG ONE (09:03)
[2017-03-31] MEDS: Docusate 100mg cap ORAL SCH ×2 (11:03→20:51)
[2017-03-31 11:59] VITALS: BP 126/75
[2017-03-31 16:16] VITALS: BP 131/81
--- NOTE | 2017-03-31 18:07 | 48 Hour Post Anesthesia Eval ---
Post Anesthesia Evaluation Procedure: Cysto, clots evacuation, partial TUPR Date of Evaluation: Mar 31, 2017 Time of Evaluation: 18:00 Blood Pressure Systolic: 131 0: 81 Pulse Rate: 97 Respiratory Rate: 20 Temperature (Fahrenheit): 98.1 O2 Sat by Pulse Oximetry: 99 Airway: patent Nausea: No Vomiting: No Pain Intensity: 2 Hydration Status: adequate Cardiopulmonary Status: at baseline Mental Status/LOC: patient returned to baseline Post-Anesthesia Complications: 0 Follow-up care needed: N/A - further care as per primary team MEGHNA SHULTZ M.D. Mar 31, 2017 18:07
[2017-03-31 20:00] VITALS: BP 132/79
[2017-04-01] VITALS: BP 119/58
[2017-04-01 04:00] VITALS: BP 120/78
[2017-04-01] MEDS: ceFAZolin 1gm in D5W 55ml IVP SCH ×2 (05:46→17:51)
[2017-04-01] MEDS: Docusate 100mg cap ORAL SCH (08:34)
[2017-04-01 08:39] VITALS: BP 120/81
--- NOTE | 2017-04-01 10:13 | General Progress Note ---
Assessment/Plan Problem List: (1) Constipation ICD Codes: K59.00 - Constipation, unspecified SNOMED: 63244164 Qualifiers: Qualified Codes: K59.00 - Constipation, unspecified (2) Hyperglycemia ICD Codes: R73.9 - Hyperglycemia, unspecified SNOMED: 24539349 (3) Gross hematuria ICD Codes: R31.0 - Gross hematuria SNOMED: 648366184 (4) Bladder mass ICD Codes: N32.89 - Other specified disorders of bladder SNOMED: 575539136 (5) Bilateral hydronephrosis ICD Codes: N13.30 - Unspecified hydronephrosis SNOMED: 22682705 (6) [place] (acute kidney injury) ICD Codes: N17.9 - Acute kidney failure, unspecified SNOMED: 62306507 Assessment/Plan observe post turp, bladder irrigation, urine clearing mobilize, dispo per urology Subjective Constitutional: Reports: no symptoms HEENT: Reports: no symptoms Cardiovascular: Reports: no symptoms Respiratory: Reports: no symptoms Gastrointestinal/Abdominal: Reports: no symptoms Genitourinary: Reports: hematuria Neurologic/Psychiatric: Reports: no symptoms Endocrine: Reports: no symptoms Hematologic/Lymphatic: Reports: no symptoms Allergies: Coded Allergies: No Known Allergies (Unverified , 03/29/17) Objective Last 24 Hour Vital Signs Date Time Temp Pulse Resp B/P Pulse Ox O2 Delivery O2 Flow Rate FiO2 04/01/17 08:39 97.7 77 20 120/81 97 Room Air 04/01/17 04:00 98.4 70 18 120/78 97 Room Air 04/01/17 00:00 98.8 67 18 119/58 95 Room Air 03/31/17 20:00 99.0 100 18 132/79 95 Room Air 03/31/17 18:07 97 20 99 03/31/17 16:16 98.1 97 20 131/81 99 Room Air 03/31/17 11:59 97.6 97 20 126/75 98 Room Air Intake and Output 03/31/17 04/01/17 19:00 07:00 Intake Total 1215 ml 200 ml Output Total 1550 ml 1000 ml Balance -335 ml -800 ml Intake Oral 1215 ml 200 ml Output Urine Total 1550 ml 1000 ml # Voids 3 # Bowel Movements 1 Height (Feet): 5 Height (Inches): 5.00 Weight (Pounds): 170 General Appearance: WD/WN, no apparent distress, alert EENT: normal ENT inspection Neck: non-tender Cardiovascular: normal rate, regular rhythm Respiratory/Chest: lungs clear Abdomen: non tender, soft, other - sp tube Edema: no edema noted Arm (L), no edema noted Arm (R), no edema noted Leg (L), no edema noted Leg (R), no edema noted Pedal (L), no edema noted Pedal (R), no edema noted Generalized 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
[2017-04-01 11:57] VITALS: BP 127/83
--- NOTE | 2017-04-01 13:26 | Urology Progress Note ---
Assessment/Plan Assessment/Plan Doing well POD 2 s/p TURP. Urine yellow 1. DC home today with hernandez to leg bag 2. keep SP tube plugged 3. f/u 1 week office visit voiding trial, if voiding ok will then remove SP tube. Subjective Date patient seen: Apr 01, 2017 Time patient seen: 13:24 ROS Limited/Unobtainable: No Constitutional: Denies: chills, diaphoresis, fever, malaise, no symptoms, other , weakness HEENT: Denies: blurred vision, double vision, ear discharge, ear pain, eye pain , mouth pain, mouth swelling, no symptoms, nose congestion, nose pain, other, tearing, throat pain, throat swelling Cardiovascular: Denies: chest pain, edema, irregular heart rate, lightheadedness, no symptoms, other, palpitations, syncope Respiratory: Denies: SOB at rest, SOB with excertion, cough, no symptoms, orthopnea, other, shortness of breath, sputum, stridor, wheezing Gastrointestinal/Abdominal: Denies: abdomen distended, abdominal pain, black stools, blood in stool, constipated, diarrhea, difficulty swallowing, nausea, no symptoms, other, poor appetite, poor fluid intake, rectal bleeding, tarry stools, vomiting Genitourinary: Denies: burning, discharge, flank pain, frequency, hematuria, incontinence, no symptoms, other, pain, urgency Neurologic/Psychiatric: Denies: anxiety, depressed, emotional problems, headache, no symptoms, numbness, other, paresthesia, pre-existing deficit, seizure, tingling, tremors, weakness Endocrine: Denies: excessive sweating, flushing, increased hunger, increased thirst, increased urine, intolerance to cold, intolerance to heat, no symptoms, other, unexplained weight gain, unexplained weight loss Hematologic/Lymphatic: Denies: anemia, easy bleeding, easy bruising, no symptoms, other Allergies: Coded Allergies: No Known Allergies (Unverified , 03/29/17) Subjective feeling great. minimal pain, urine yellow Objective Last 24 Hour Vital Signs Date Time Temp Pulse Resp B/P Pulse Ox O2 Delivery O2 Flow Rate FiO2 04/01/17 11:57 97.6 82 20 127/83 95 Room Air 04/01/17 08:39 97.7 77 20 120/81 97 Room Air 04/01/17 04:00 98.4 70 18 120/78 97 Room Air 04/01/17 00:00 98.8 67 18 119/58 95 Room Air 03/31/17 20:00 99.0 100 18 132/79 95 Room Air 03/31/17 18:07 97 20 99 03/31/17 16:16 98.1 97 20 131/81 99 Room Air Intake and Output 03/31/17 04/01/17 19:00 07:00 Intake Total 1215 ml 200 ml Output Total 1550 ml 1000 ml Balance -335 ml -800 ml Intake Oral 1215 ml 200 ml Output Urine Total 1550 ml 1000 ml # Voids 3 # Bowel Movements 1 Height (Feet): 5 Height (Inches): 5.00 Weight (Pounds): 170 General Appearance: no apparent distress Abdomen: soft Genitourinary/Rectal: other - hernandez in place, yellow urine Steven Yi M.D. Apr 01, 2017 13:26
[2017-04-01 15:24] VITALS: BP 126/89
[2017-04-01] MEDS ORDERED: Tubing IV Secondary IV ONE (19:09)
[2017-04-01] MEDS ORDERED: 1/2 NS 1000ml IV ONE (19:09)
--- NOTE | 2017-04-02 14:42 | Discharge Summary ---
Discharge Summary Hospital Course Date of Admission Mar 29, 2017 at 14:43 Date of Discharge Apr 01, 2017 at 19:10 Admitting Diagnosis obstructive renal failure KATYA Brumfield is a 66 year old male who was admitted on Mar 29, 2017 at 14:43 for Obstructive Renal Failure Hospital Course dc summary #[id number] Discharge Condition Upon Discharge: stable Discharge Disposition Patient was discharged to Home (01) Discharge Diagnoses: Discharge Instructions Discharge Instructions Special Instructions I have been assigned to complete a D/C Summary on this account. I was not involved in the patient management Carly Mtz NP (Vanchtein) Apr 02, 2017 14:42
--- NOTE | 2017-04-02 23:45 | Discharge Summary ---
DATE OF ADMISSION: 03/29/2017 DATE OF DISCHARGE: 04/01/2017 PERTINENT HISTORY: The patient is a generally healthy man with history of prior prostatectomy many years ago presents with gross hematuria and abdominal pain. PERTINENT PHYSICAL FINDINGS: See my dictated H and P. LUNGS: Clear. HEART: Regular rhythm. No murmur. ABDOMEN: Soft. Liver and spleen not palpable. There is some tenderness in the suprapubic area. Penis and testes normal. There is bloody urine in the bed sheet. COURSE IN THE HOSPITAL: CT scan showed a 9 x 7 x 9 centimeter mass versus hematoma in the bladder. He was seen by Dr. Yi who performed suprapubic cystotomy. He subsequently underwent surgery on 03/30/2017 with cystoscopy, partial transurethral resection of prostate, clot evacuation, and complex catheter placement. He tolerated the procedure well. Pathology pending at the time of surgery. His urine cleared with the drainage and the patient felt well. His suprapubic catheter was clamped and he had a Hale catheter. He had a stable situation and he was discharged home in stable condition. FINAL DIAGNOSES: 1. Gross hematuria. 2. Large clot in the bladder. 3. Benign prostatic hypertrophy. Pathology pending. 4. History of suprapubic tube placed. DISCHARGE DISPOSITION: The patient discharged home and will be followed up by Dr. Yi and his primary care physician. DISCHARGE MEDICATIONS: List per Dr. Yi Yogesh Curiel M.D. DR: Amanda JOB#: [id number] CC:
--- NOTE | 2017-04-03 04:45 | Discharge Summary 2 SIG ---
DATE OF ADMISSION: 03/29/2017 DATE OF DISCHARGE: 04/01/2017 The patient was admitted under Dr. Curiel. REASON FOR ADMISSION: The patient is a 66-year-old male with history of prostatectomy years ago, presented with hematuria and abdominal pain. CT of the abdomen revealed a 9 x 7 x 9 cm mass versus hematoma in the bladder. The patient also had bilateral perinephric fluid and bilateral hydroureteronephrosis. White blood count 13.6, hemoglobin 13.8, and platelets 291,000. Electrolytes stable, BUN 22, creatinine 1.3, glucose 196, and calcium 10.4. Urinalysis was not done. The patient was admitted for further management. ADMITTING DIAGNOSES: Include, 1. Acute on chronic obstructive uropathy. 2. Bladder mass. 3. Gross hematuria. 4. Bilateral hydroureteronephrosis. 5. Acute kidney injury. 6. Hyperglycemia. HOSPITAL STAY: The patient was admitted. The patient was started on IV fluids. Urology consult was requested. The patient was started on empiric antibiotics along with IV fluids. Pain management was provided. Urology seen and evaluated the patient. Scheduled the patient for TURP. Subsequently, on 03/30/2017, the patient undergone cystoscopy, partial TURP, clot evacuation, and complex catheter placement. Urologist closely followed the patient prior to discharge for Hale catheter and suprapubic catheter. Initially, the catheter was continuous bladder irrigation and hand irrigation. Urine clear. Continuous bladder irrigation stopped. The patient was discharged home with a Hale catheter to leg bag and taught the patient how to empty and use it. Follow up with urologist in one week. According to urologist, if voiding trial successful, then suprapubic catheter will be discontinued. Hemoglobin and hematocrit were closely monitored. Initial hemoglobin was 13.5 and hematocrit 41.7. On the last laboratory work, hemoglobin was 10.4 and hematocrit 31.0. Recommended close follow up with the primary medical doctor and monitoring hemoglobin and hematocrit. At this point, he is stable. No further evidence of the GI bleeding. The patient was on the IV fluids. Renal parameters and electrolytes were closely monitored. BUN and creatinine from initial 22 and 1.3 respectively down to BUN 19 and creatinine 0.8, improved with IV hydration. Pain management was addressed. Bowel regimen was instituted. The patient able to have bowel movement. Initial hyperglycemia of 196, resolved, the next day possibly due to IV fluids with dextrose. Recommend to check the hemoglobin A1c as outpatient. No prior history of diabetes. Of note, again CT of the abdomen and pelvis revealed bilateral hydronephrosis likely secondary to perinephric stranding. Hematoma was within the bladder lumen. The prostate was enlarged and heterogeneous in appearance measuring 6 x 8.5 x 7.3 cm. Bladder outlet impediment due to large intraluminal hematoma associated with moderate bilateral hydronephrosis and perinephric stranding. Superimposed infection not excludable. The patient was mobilized after surgery prior to going home. Able to get out of the bed. Tolerates diet. Urine cleared. Vital signs stable. The patient was stable for discharge home with the urologist. DISCHARGE DIAGNOSES: Include, 1. Acute on chronic obstructive uropathy. 2. Bladder mass. 3. Gross hematuria. 4. Bilateral hydronephrosis. 5. Status post cystoscopy, partial TURP, clot evacuation and complex catheter placement on 03/30/2017. 6. Constipation. DISCHARGE MEDICATIONS: See medication reconciliation list. DISCHARGE INSTRUCTIONS: The patient was discharged home. The patient was instructed on how to care of leg bag. The patient is to follow up with the primary medical doctor. Yogesh Curiel M.D. I have been assigned to dictate discharge summary on this account and I was not involved in the patient's management. Carly H[facility]il hospitalMary[facility] NNicole DR: RAYMUNDO JOB#: [id number] CC:
== END 2017-04-01 19:10 | disposition home or self-care (01) | DRG 713 ==
LOC: EDBD 12:39 → EMR 13:20 → EDBEDREQ 14:42 → 3E 14:43 → EDBEDREQ 18:26 → 3E 03-30 16:22
PROC: 0TCB8ZZ Extirpation of Matter from Bladder, Via Natural or Artificial Opening Endoscopic (ICD-10-PCS; principal; 2017-03-30 08:00)
PROC: 0T7B8DZ Dilation of Bladder with Intraluminal Device, Via Natural or Artificial Opening Endoscopic (ICD-10-PCS; principal; 2017-03-30 08:00)
PROC: 0VB08ZZ Excision of Prostate, Via Natural or Artificial Opening Endoscopic (ICD-10-PCS; principal; 2017-03-30 08:00)
DX: N40.1 Benign prostatic hyperplasia with lower urinary tract symptoms (principal); N13.30 Unspecified hydronephrosis; N17.9 Acute kidney failure, unspecified; N39.0 Urinary tract infection, site not specified; R31.0 Gross hematuria; N13.9 Obstructive and reflux uropathy, unspecified; N32.89 Other specified disorders of bladder; R33.8 Other retention of urine; I10 Essential (primary) hypertension; K21.9 Gastro-esophageal reflux disease without esophagitis; K59.00 Constipation, unspecified; R73.9 Hyperglycemia, unspecified
CPT/HCPCS: 36415; 74177; 80048; 80053; 83690; 85007; 85025; 85610; 85730; 86850; 86900; 86901; 94003; 94150; J2250

== ENCOUNTER 2017-04-07 11:12 | Emergency (ER) | payer MEDICARE, MEDICAID ==
[~2017-04-07] VITALS: Ht 165.1 cm; Wt 77.1 kg
[~2017-04-07 11:12] MED LIST: NKM
[2017-04-07 12:00] VITALS: BP 117/75
[2017-04-07 12:09] LABS: BASOPHILS % (AUTO) 1.1 % (0.0-2.0); EOSINOPHILS % (AUTO) 7.4 % (0.0-3.0); LYMPHOCYTES % (AUTO) 19.9 % (20.0-45.0); MEAN CORPUSCULAR HEMOGLOBIN 31.3 PG (27.0-31.0); MEAN CORPUSCULAR HGB CONC 32.9 G/DL (32.0-36.0); MEAN CORPUSCULAR VOLUME 95 FL (80-99); MEAN PLATELET VOLUME 5.3 FL (6.5-10.1); MONOCYTES % (AUTO) 7.9 % (1.0-10.0); NEUTROPHILS % (AUTO) 63.8 % (45.0-75.0); PLATELET COUNT 495 K/UL (150-450); RED BLOOD COUNT 3.52 M/UL (4.70-6.10); RED CELL DISTRIBUTION WIDTH 11.7 % (11.6-14.8); WHITE BLOOD COUNT 8.9 K/UL (4.8-10.8)
[2017-04-07 12:15] LABS: APPEARANCE,URINE SLIGHTLY CLOUDY; KETONES,URINE NEGATIVE (NEGATIVE); LEUKOCYTE ESTERASE ,URINE 3+ (NEGATIVE); NITRITE,URINE POSITIVE (NEGATIVE); PH,URINE 8 (4.5-8.0); PROTEIN,URINE 4+ (NEGATIVE); UROBILINOGEN,URINE NORMAL MG/DL (0.0-1.0)
[2017-04-07 12:19] LABS: ALANINE AMINOTRANSFERASE 13 U/L (3-41); ALBUMIN/GLOBULIN RATIO 1.1 (1.0-2.7); ANION GAP 9 (5-15); ASPARTATE AMINO TRANSFERASE 14 U/L (5-40); CALCIUM 9.7 mg/dL (8.6-10.2); CARBON DIOXIDE 27 mEQ/L (20-30); CHLORIDE 106 mEQ/L (98-107); CREATININE 0.8 mg/dL (0.7-1.2); GLOMERULAR FILTRATION RATE > 60 mL/min (>60); HEMOLYSIS 1; POTASSIUM 3.9 mEQ/L (3.4-4.9); SODIUM 142 mEQ/L (135-145); TOTAL PROTEIN 6.7 g/dL (6.6-8.7)
[2017-04-07 12:29] LABS: BACTERIA,URINE MODERATE /HPF; RBC,URINE 30-40 /HPF (0 - 0); SQUAMOUS EPITHELIAL CELL,UR OCCASIONAL /LPF (NONE/OCC); WBC,URINE 30-40 /HPF (0 - 0)
[2017-04-07] MEDS ORDERED: cefTRIAXone 1 GM in NS 55 ML IVPB ONE (13:00)
[2017-04-07] MEDS ORDERED: NS 55 ML IV ONE (13:04)
[2017-04-07] MEDS ORDERED: Tubing IV Cassette IV ONE (13:04)
[2017-04-07 13:54] VITALS: BP 103/80
--- NOTE | 2017-04-07 15:30 | Emergency Room Report ---
History of Present Illness General Chief Complaint: Male Urogenital Problems Source: Patient, Medical Record Present Illness HPI Patient with foul smelling urine after suprapubic cath and hernandez. Had TURP. No fevers. No pain. Urine turbid. Sent to check for infection. No chills, NVD, chest pain, dyspnea, rashes. Allergies: Coded Allergies: No Known Allergies (Unverified , 03/29/17) Patient History Past Medical History: see triage record Past Surgical History: other - suprapubic cath, TURP Social History Narrative home Reviewed Nursing Documentation: PMH: Agreed, PSxH: Agreed Nursing Documentation-PM Past Medical History: No History, Except For Hx Cardiac Problems: No Hx Cancer: No Hx Gastrointestinal Problems: No Hx Neurological Problems: No Review of Systems All Other Systems: negative except mentioned in HPI Physical Exam Vital Signs Date Time Temp Pulse Resp B/P Pulse Ox O2 Delivery O2 Flow Rate FiO2 04/07/17 11:16 97.9 104 14 130/91 98 Room Air Sp02 EP Interpretation: reviewed, normal General Appearance: well appearing, no apparent distress, GCS 15 Head: normocephalic Eyes: bilateral eye PERRL, bilateral eye normal inspection ENT: moist mucus membranes Neck: supple Respiratory: lungs clear, normal breath sounds Cardiovascular #1: regular rate, rhythm Cardiovascular #2: 2+ radial (R) Gastrointestinal: normal inspection, normal bowel sounds, non tender, no mass, non-distended, other - suprapubic cath Genitourinary: other - hernandez Musculoskeletal: back normal, gait/station normal, normal range of motion Neurologic: alert, oriented x3, grossly normal Psychiatric: mood/affect normal Skin: normal inspection, no rash, warm/dry, well hydrated Medical Decision Making Diagnostic Impression: Primary Impression: UTI (urinary tract infection) Qualified Codes: T83.510A - Infection and inflammatory reaction due to cystostomy catheter, initial encounter; N39.0 - Urinary tract infection, site not specified Additional Impressions: Suprapubic catheter S/P TURP ER Course Patient with urine changes with suprapubic and hernandez caths. Ddx: sepsis, UTI, pyelonephritis, renal failure amongst others. Evaluation with labs and urine. UA with pyuria. Labs otherwise unremarkable. Rocephin given IV. Keflex prescribed. Patient stable for outpatient observation and treatment. Laboratory Tests Test 04/07/17 11:40 04/07/17 11:45 Urine Color Yellow Urine Appearance Slightly cloudy Urine pH 8 (4.5-8.0) Urine Specific [place] 1.015 (1.005-1.035) Urine Protein 4+ (NEGATIVE) H Urine Glucose (UA) Negative (NEGATIVE) Urine Ketones Negative (NEGATIVE) Urine Occult Blood 5+ (NEGATIVE) H Urine Nitrite Positive (NEGATIVE) H Urine Bilirubin Negative (NEGATIVE) Urine Urobilinogen Normal MG/DL (0.0-1.0) Urine Leukocyte Esterase 3+ (NEGATIVE) H Urine RBC 30-40 /HPF (0 - 0) H Urine WBC 30-40 /HPF (0 - 0) H Urine Squamous Epithelial Cells Occasional /LPF Urine Bacteria Moderate /HPF (NONE) H White Blood Count 8.9 K/UL (4.8-10.8) Red Blood Count 3.52 M/UL (4.70-6.10) L Hemoglobin 11.0 G/DL (14.2-18.0) L Hematocrit 33.5 % (42.0-52.0) L Mean Corpuscular Volume 95 FL (80-99) Mean Corpuscular Hemoglobin 31.3 PG (27.0-31.0) H Mean Corpuscular Hemoglobin Concent 32.9 G/DL (32.0-36.0) Red Cell Distribution Width 11.7 % (11.6-14.8) Platelet Count 495 K/UL (150-450) H Mean Platelet Volume 5.3 FL (6.5-10.1) L Neutrophils (%) (Auto) 63.8 % (45.0-75.0) Lymphocytes (%) (Auto) 19.9 % (20.0-45.0) L Monocytes (%) (Auto) 7.9 % (1.0-10.0) Eosinophils (%) (Auto) 7.4 % (0.0-3.0) H Basophils (%) (Auto) 1.1 % (0.0-2.0) Sodium Level 142 mEQ/L (135-145) Potassium Level 3.9 mEQ/L (3.4-4.9) Chloride Level 106 mEQ/L (98-107) Carbon Dioxide Level 27 mEQ/L (20-30) Anion Gap 9 (5-15) Blood Urea Nitrogen 20 mg/dL (7-23) Creatinine 0.8 mg/dL (0.7-1.2) Estimate Glomerular Filtration Rate > 60 mL/min (>60) Glucose Level 114 mg/dL (74-106) H Calcium Level 9.7 mg/dL (8.6-10.2) Total Bilirubin 0.3 mg/dL (0.0-1.2) Aspartate Amino Transferase (AST) 14 U/L (5-40) Alanine Aminotransferase (ALT) 13 U/L (3-41) Alkaline Phosphatase 59 U/L (40-129) Total Protein 6.7 g/dL (6.6-8.7) Albumin 3.6 g/dL (3.5-5.2) Globulin 3.1 g/dL Albumin/Globulin Ratio 1.1 (1.0-2.7) Last Vital Signs Date Time Temp Pulse Resp B/P Pulse Ox O2 Delivery O2 Flow Rate FiO2 04/07/17 16:20 97.9 73 16 109/75 96 Room Air Status: improved Disposition: HOME, SELF-CARE Condition: Improved Scripts Cephalexin* (KEFLEX*) 500 Mg Capsule 500 MG ORAL Q6H, #28 CAP 0 Refills Prov: Davonte Bruce M.D. 04/07/17 Referrals: [facility],REFERRING (PCP) Davonte Bruce M.D. Apr 07, 2017 15:30
[2017-04-07] MEDS ORDERED: KEFLEX500 MG ORAL (15:31)
[2017-04-07 16:00] VITALS: BP 109/75
[2017-04-07 16:20] VITALS: BP 109/75
[2017-04-14] MEDS ORDERED: CIPRO500 MG PO (08:35)
== END 2017-04-07 16:20 | disposition home or self-care (01) ==
LOC: EMR 11:37
DX: T83.510A Infection and inflammatory reaction due to cystostomy catheter, initial encounter (principal); N39.0 Urinary tract infection, site not specified; Y93.9 Activity, unspecified; Y92.9 Unspecified place or not applicable
CPT/HCPCS: 36415; 80053; 81003; 85025; 87086; 87181; 96360; 99284; J0696

== ENCOUNTER 2017-05-03 12:24 | Emergency (ER) | payer MEDICARE, MEDICAID ==
[~2017-05-03] VITALS: Ht 165.1 cm; Wt 79.4 kg
[~2017-05-03 12:24] MED LIST changes: +CIPRO500 MG PO; +KEFLEX500 MG ORAL
[2017-05-03 12:50] VITALS: BP 121/76
[2017-05-03 13:26] LABS: APPEARANCE,URINE CLOUDY; KETONES,URINE 1+ (NEGATIVE); LEUKOCYTE ESTERASE ,URINE 2+ (NEGATIVE); NITRITE,URINE NEGATIVE (NEGATIVE); PH,URINE 5 (4.5-8.0); PROTEIN,URINE 4+ (NEGATIVE); UROBILINOGEN,URINE 1 MG/DL (0.0-1.0)
[2017-05-03 13:29] LABS: BACTERIA,URINE FEW /HPF; RBC,URINE TNTC /HPF (0 - 0); SQUAMOUS EPITHELIAL CELL,UR OCCASIONAL /LPF (NONE/OCC); WBC,URINE 40-60 /HPF (0 - 0)
[2017-05-03 14:00] VITALS: BP 119/75
[2017-05-03] MEDS ORDERED: CIPROFLOXACIN500 M2 ORAL (14:05)
[2017-05-03 14:09] VITALS: BP 119/75
--- NOTE | 2017-05-03 14:19 | Emergency Room Report ---
History of Present Illness General Chief Complaint: Male Urogenital Problems Source: Patient Present Illness HPI 66YOM walk-in with hematuria again. Was seen in ED 3x last month for similar On first visit, had urinary obstruction, requiring Urology-placed suprapubic catheter, had surgery for evacuation of bladder hematoma and hernandez placed Subsequent to that had additional ED visits with continued hematuria Was given Rx that was sensitive to prior Urine Cx by myself. States hematuria had resolved with Abx. Went to Urologist office this past week - had hernandez and suprapubic removed. He denies abd pain, vomiting, difficulty urinating on today's visit. Allergies: Coded Allergies: No Known Allergies (Unverified , 03/29/17) Patient History Past Medical History: other - BPH Past Surgical History: other - suprapubic cath, evacuation of bladder hematoma Pertinent Family History: none Social History: Denies: alcohol use, drug use, smoking Immunizations: UTD Reviewed Nursing Documentation: PMH: Agreed, PSxH: Agreed Nursing Documentation-PMH Hx Cardiac Problems: No Hx Cancer: No Hx Gastrointestinal Problems: No Hx Neurological Problems: No Review of Systems All Other Systems: negative except mentioned in HPI Physical Exam Vital Signs Date Time Temp Pulse Resp B/P Pulse Ox O2 Delivery O2 Flow Rate FiO2 05/03/17 12:38 98.1 88 22 121/76 96 Room Air Sp02 EP Interpretation: reviewed, normal General Appearance: normal inspection, well appearing, no apparent distress, alert Head: normocephalic, atraumatic Eyes: bilateral eye EOMI, bilateral eye PERRL ENT: normal ENT inspection, hearing grossly normal, normal voice Neck: normal inspection, full range of motion, supple, no bony tend Respiratory: normal inspection, lungs clear, normal breath sounds, no respiratory distress, no retraction, no wheezing Cardiovascular #1: regular rate, rhythm, no edema Gastrointestinal: normal inspection, normal bowel sounds, non tender, soft, no guarding, no hernia Genitourinary: no CVA tenderness, other - cola colored urine Musculoskeletal: normal inspection, back normal, normal range of motion, [place]w' s Sign negative Neurologic: normal inspection, alert, oriented x3, responsive, website programmer III-XII nml as tested, motor strength/tone normal, speech normal Psychiatric: normal inspection, judgement/insight normal, mood/affect normal Skin: normal inspection, normal color, no rash Lymphatic: normal inspection Medical Decision Making Diagnostic Impression: Primary Impression: UTI (urinary tract infection) Qualified Codes: N30.01 - Acute cystitis with hematuria Additional Impression: Hematuria Qualified Codes: R31.9 - Hematuria, unspecified ER Course UA grossly infected Will Rx additional Abx Spoke with Dr San molten iron pourer for Urology States he will ask Dr Yi to followup, call patient for followup appt Did not recommend additional intervention at this time Last Vital Signs Date Time Temp Pulse Resp B/P Pulse Ox O2 Delivery O2 Flow Rate FiO2 05/03/17 14:09 98.1 85 19 119/75 98 Room Air Status: improved Disposition: HOME, SELF-CARE Condition: Improved Scripts Ciprofloxacin Hcl* (CIPROFLOXACIN HCL*) 500 Mg Tablet 500 MG ORAL Q12H for 7 Days, #14 TAB 0 Refills Prov: CORETTA SIMMONS M.D. 05/03/17 Referrals: NON PHYSICIAN (PCP) Patient Instructions: Urinary Tract Infection Additional Instructions: - Take ALL antibiotics as prescribed - Dr Yi or someone from office will call you to coordinate followup CORETTA SIMMONS M.D. May 03, 2017 14:19
== END 2017-05-03 14:09 | disposition home or self-care (01) ==
LOC: EMR 12:50
DX: N30.01 Acute cystitis with hematuria (principal); R31.9 Hematuria, unspecified
CPT/HCPCS: 81003; 87086; 99283

== ENCOUNTER 2017-05-09 09:18 | Emergency (ER) | payer MEDICARE, MEDICAID ==
[~2017-05-09] VITALS: Ht 165.1 cm; Wt 77.1 kg
[~2017-05-09 09:18] MED LIST changes: +CIPROFLOXACIN500 M2 ORAL
[2017-05-09 10:01] LABS: APPEARANCE,URINE CLOUDY; KETONES,URINE NEGATIVE (NEGATIVE); LEUKOCYTE ESTERASE ,URINE 3+ (NEGATIVE); NITRITE,URINE NEGATIVE (NEGATIVE); PH,URINE 5 (4.5-8.0); PROTEIN,URINE 3+ (NEGATIVE); UROBILINOGEN,URINE NORMAL MG/DL (0.0-1.0)
[2017-05-09 10:12] LABS: RBC,URINE 60-80 /HPF (0 - 0); WBC,URINE TNTC /HPF (0 - 0)
[2017-05-09 10:13] LABS: BACTERIA,URINE FEW /HPF; SQUAMOUS EPITHELIAL CELL,UR OCCASIONAL /LPF (NONE/OCC)
[2017-05-09] MEDS ORDERED: DIFLUCAN100 MG ORAL (10:57)
[2017-05-09] MEDS ORDERED: KEFLEX500 MG ORAL (11:00)
[2017-05-09] MEDS ORDERED: LEVOFLOXACIN500 MG ORAL (11:02)
[2017-05-09 11:13] VITALS: BP 134/85
--- NOTE | 2017-05-13 14:29 | Emergency Room Report ---
History of Present Illness General Chief Complaint: Male Urogenital Problems Source: Patient Present Illness [facility] Patient's a 66-year-old male who presented after increased dysuria and hematuria patient recently hospitalized for urinary tract infection. He is noted to have recent prostate surgery. Patient had persistent complaint hematuria. He denied any fever or vomiting. Patient had previous at catheter placement the patient was being followed by urology. Patient recently been on ciprofloxacin. Allergies: Coded Allergies: No Known Allergies (Unverified , 03/29/17) Patient History Past Medical History: see triage record Reviewed Nursing Documentation: PMH: Agreed, PSxH: Agreed Nursing Documentation-PMH Hx Cardiac Problems: No Hx Cancer: No Hx Gastrointestinal Problems: No Hx Neurological Problems: No Review of Systems All Other Systems: negative except mentioned in HPI Physical Exam Vital Signs Date Time Temp Pulse Resp B/P Pulse Ox O2 Delivery O2 Flow Rate FiO2 05/09/17 09:24 97.5 73 20 134/85 97 Room Air General Appearance: well appearing, no apparent distress, alert, GCS 15 Head: normocephalic, atraumatic ENT: hearing grossly normal, normal voice Neck: full range of motion, supple Respiratory: no respiratory distress, speaking full sentences Gastrointestinal: normal inspection, soft Musculoskeletal: no calf tenderness Neurologic: normal gait Psychiatric: mood/affect normal Skin: no rash Medical Decision Making Diagnostic Impression: Primary Impression: UTI (urinary tract infection) ER Course The patient presented for hematuria. Differential diagnosis included was not limited to urinary tract infection, renal cell carcinoma, bladder CA pyelonephritis among others.Because of complexity of patient's case laboratory testing and imaging studies were ordered. Patient noted to have evidence of urinary infection. The patient was discussed with urology and will have outpatient followup with urology clinic. The patient 's prior cultures were reviewed and patient will be placed on levofloxacin and as well as Diflucan as he previously had yeast in his urine. The patient is advised to return if he began having fever or persistent vomiting. Labs Test 05/09/17 09:33 Urine Color Brown Urine Appearance Cloudy Urine pH 5 (4.5-8.0) Urine Specific [place] 1.020 (1.005-1.035) Urine Protein 3+ (NEGATIVE) Urine Glucose (UA) Negative (NEGATIVE) Urine Ketones Negative (NEGATIVE) Urine Occult Blood 5+ (NEGATIVE) Urine Nitrite Negative (NEGATIVE) Urine Bilirubin Negative (NEGATIVE) Urine Urobilinogen Normal MG/DL (0.0-1.0) Urine Leukocyte Esterase 3+ (NEGATIVE) Urine RBC 60-80 /HPF (0 - 0) Urine WBC Tntc /HPF (0 - 0) Urine Squamous Epithelial Cells Occasional /LPF Urine Bacteria Few /HPF (NONE) Last Vital Signs Date Time Temp Pulse Resp B/P Pulse Ox O2 Delivery O2 Flow Rate FiO2 05/09/17 11:13 98.0 78 21 134/85 98 Room Air Status: improved Disposition: HOME, SELF-CARE Condition: Stable Scripts Levofloxacin (LEVOFLOXACIN*) 500 Mg Tablet 500 MG ORAL DAILY, #7 TAB Prov: Robert Johansen 05/09/17 Fluconazole* (DIFLUCAN*) 100 Mg Tablet 100 MG ORAL DAILY, #7 TAB Prov: Robert Johansen 05/09/17 Patient Instructions: Urinary Tract Infection Robert Johansen May 13, 2017 14:29
== END 2017-05-09 11:13 | disposition home or self-care (01) ==
LOC: EMR 09:50
DX: N39.0 Urinary tract infection, site not specified (principal)
CPT/HCPCS: 81003; 87086; 99284

== ENCOUNTER 2019-01-26 09:20 | Emergency (ER) | payer MEDICARE, MEDICAID ==
[~2019-01-26] VITALS: Ht 165.1 cm; Wt 77.1 kg
[~2019-01-26 09:20] MED LIST changes: +DIFLUCAN100 MG ORAL; +LEVOFLOXACIN500 MG ORAL
[2019-01-26 10:15] VITALS: BP 177/110
--- NOTE | 2019-01-26 10:20 | NUR ---
ED Nurse Note: Pt is A&O x4, ambulated to ED from home. Pain 4/10 lower abdomen, pt states not being able to pee since yesterday. Pt also reports constipation x2 days.
--- NOTE | 2019-01-26 10:25 | NUR ---
ED Nurse Note: US at the bedside
[2019-01-26 10:31] LABS: APPEARANCE,URINE CLOUDY; BILIRUBIN, URINE NEGATIVE (NEGATIVE); GLUCOSE, URINE (UA) NEGATIVE (NEGATIVE); KETONES,URINE NEGATIVE (NEGATIVE); LEUKOCYTE ESTERASE ,URINE 1+ (NEGATIVE); NITRITE,URINE NEGATIVE (NEGATIVE); PH,URINE 6.5 (4.5-8.0); PROTEIN,URINE 3+ (NEGATIVE); UROBILINOGEN,URINE NORMAL MG/DL (0.0-1.0)
[2019-01-26 10:33] LABS: COLOR,URINE RED
[2019-01-26] MEDS ORDERED: NITROFURANTOIN100 M2 ORAL (10:35)
--- NOTE | 2019-01-26 10:47 | Emergency Room Report ---
History of Present Illness General Chief Complaint: Abdominal Pain Source: Patient Present Illness HPI Patient is a 68-year-old male who presented after increased difficulty with urination. Patient reports of increased hesitancy with urination and then was unable to void this morning. Patient had prior history of prostate disease. He denies any fever. He reports having similar symptoms in the past. He denies any diarrhea. He reports having some straining at stool. He denies any low back pain. He denies any hematuria. Allergies: Coded Allergies: No Known Allergies (Unverified , 03/29/17) Patient History Past Medical History: see triage record Reviewed Nursing Documentation: PMH: Agreed; PSxH: Agreed Nursing Documentation-PMH Hx Cardiac Problems: No Hx Cancer: No Hx Gastrointestinal Problems: No Hx Neurological Problems: No Review of Systems All Other Systems: negative except mentioned in HPI Physical Exam Vital Signs Date Time Temp Pulse Resp B/P (MAP) Pulse Ox O2 Delivery O2 Flow Rate FiO2 01/26/19 09:24 97.5 94 18 177/110 95 Room Air Sp02 EP Interpretation: reviewed, normal General Appearance: normal inspection, well appearing, no apparent distress, alert, GCS 15 Head: atraumatic ENT: normal ENT inspection, hearing grossly normal, normal voice Neck: normal inspection, full range of motion, supple, no bony tend Respiratory: normal inspection, lungs clear, normal breath sounds, no respiratory distress, no retraction, no wheezing Cardiovascular #1: regular rate, rhythm, no edema Gastrointestinal: normal inspection, normal bowel sounds, non tender, soft, no guarding, no hernia, other - Distended bladder Genitourinary: no CVA tenderness Musculoskeletal: normal inspection, back normal, normal range of motion Neurologic: normal inspection, alert, responsive, speech normal Psychiatric: normal inspection, judgement/insight normal, mood/affect normal Skin: normal inspection, normal color, no rash Medical Decision Making Diagnostic Impression: Primary Impression: Acute urinary retention ER Course Patient presented for urinary retention. Differential diagnosis include is not limited to prostate hypertrophy, bladder mass, urinary tract infection among others. A Hale catheter was placed with moderate return of urine.Because of complexity of patient's case laboratory testing and imaging studies were ordered. Abdominal ultrasound showed a mass in the bladder. Patient was advised to follow-up with urology. He was given prescription for oral antibiotics patient advised to return if he had any worsening of condition or other concerns. Labs Test 4/30/19 09:50 Urine Color Red Urine Appearance Cloudy Urine pH 6.5 (4.5-8.0) Urine Specific [place] 1.015 (1.005-1.035) Urine Protein 3+ (NEGATIVE) Urine Glucose (UA) Negative (NEGATIVE) Urine Ketones Negative (NEGATIVE) Urine Blood 5+ (NEGATIVE) Urine Nitrite Negative (NEGATIVE) Urine Bilirubin Negative (NEGATIVE) Urine Urobilinogen Normal MG/DL (0.0-1.0) Urine Leukocyte Esterase 1+ (NEGATIVE) Urine RBC Tntc /HPF (0 - 0) Urine WBC 2-4 /HPF (0 - 0) Urine Squamous Epithelial Cells Occasional /LPF Urine Bacteria Occasional /HPF (NONE) Last Vital Signs Date Time Temp Pulse Resp B/P (MAP) Pulse Ox O2 Delivery O2 Flow Rate FiO2 01/26/19 10:15 97.5 94 18 177/110 95 Room Air Status: improved Disposition: HOME, SELF-CARE Condition: Stable Scripts Nitrofurantoin Monohyd/M-Cryst* (MACROBID 100 MG*) 100 Mg Capsule 100 MG ORAL EVERY 12 HOURS, #20 CAP Prov: Robert Johansen MD 01/26/19 Referrals: [facility],REFERRING (PCP) Robert Johansen MD Jan 26, 2019 10:47
--- NOTE | 2019-01-26 10:56 | NUR ---
US completed.Hale cath inserted, coude 14F, pt tolerated. 700ml straw colored urine returned.
[2019-01-26 11:13] VITALS: BP 120/82
--- NOTE | 2019-01-26 11:19 | NUR ---
ER DISCHARGE NOTE: Patient is cleared to be discharged per ERMD, pt is aox4, on room air, with stable vital signs. pt was given dc and prescription instructions, pt was able to verbalize understanding, pt id band removed. pt is able to ambulate with steady gait. pt took all belongings.
--- NOTE | 2019-01-26 12:08 | Diagnostic Imaging Report ---
Indication:Abdominal pain Technique: Grayscale and duplex Doppler imaging of the abdomen performed. Comparison: None Findings: There is a large mass at the base of the urinary bladder measuring approximately 6.6 x 6.3 x 6.6 cm. This is a solid hypoechoic mass and may be an enlarged prostate gland or tumor. Patient has a history of prostatectomy. Patient is unable to void. The urinary bladder is moderately distended. Further clinical evaluation is recommended. Liver is unremarkable. There is no evidence of a gallstones or biliary ductal dilatation. CBD is 5 mm. There is no ascites. Spleen is normal size. Pancreas is grossly unremarkable. There is mild hydronephrosis involving the left kidney. This may be due to the mass at the base of the bladder. IMPRESSION: Large mass at the base of the urinary bladder in the location of the prostate gland with urinary retention. This is concerning for prostate origin tumor. Further evaluation by urologist is recommended. Left hydroureteronephrosis may be due to the bladder mass.
== END 2019-01-26 11:12 | disposition home or self-care (01) ==
LOC: EMR 10:20
DX: R33.9 Retention of urine, unspecified (principal); N32.9 Bladder disorder, unspecified; N13.30 Unspecified hydronephrosis
CPT/HCPCS: 51702; 76700; 81003; 99284

== ENCOUNTER 2019-02-14 08:58 | Emergency (ER) | payer MEDICARE, MEDICAID ==
[~2019-02-14] VITALS: Ht 165.1 cm; Wt 80.7 kg
[~2019-02-14 08:58] MED LIST changes: +NITROFURANTOIN100 M2 ORAL
[2019-02-14] MEDS ORDERED: FLOMAX0.4 MG ORAL ×2 (09:43)
[2019-02-14] MEDS ORDERED: CIPROFLOXACIN500 M2 ORAL ×2 (09:43)
[2019-02-14 09:54] VITALS: BP 164/98
--- NOTE | 2019-02-14 09:59 | NUR ---
ED Nurse Note: pt walked in c/o urinating around his indwelling cath. cath changed out to 16 bul[place]ian coude and new bag. pt drainging now in the bag and has dark red blood ermd eval done pt given scripts aci denies pain verbalized understanding ambulated out with strong and steady gait.
--- NOTE | 2019-02-14 12:35 | Emergency Room Report ---
History of Present Illness General Chief Complaint: Male Urogenital Problems Source: Patient Present Illness HPI 68-year-old male presents ED for evaluation. Is here for evaluation of Hernandez catheter. States he was placed a few weeks ago here. States she has history of prostate problems. States that it is not draining at this time. Denies fevers or chills. Denies flank pain nausea or vomiting. States he was scheduled for urology appointment in February. No other aggravating relieving factors. Denies any other associated symptoms Allergies: Coded Allergies: No Known Allergies (Unverified , 03/29/17) Patient History Past Medical History: none Past Surgical History: none Pertinent Family History: none Social History: Denies: smoking, alcohol use, drug use Immunizations: UTD Reviewed Nursing Documentation: PMH: Agreed; PSxH: Agreed Nursing Documentation-PMH Past Medical History: No History, Except For Hx Cardiac Problems: No Hx Cancer: No Hx Gastrointestinal Problems: No Hx Neurological Problems: No Review of Systems All Other Systems: negative except mentioned in HPI Physical Exam Vital Signs Date Time Temp Pulse Resp B/P (MAP) Pulse Ox O2 Delivery O2 Flow Rate FiO2 02/14/19 09:04 95.0 88 20 98 Room Air 02/14/19 09:54 164/98 Sp02 EP Interpretation: reviewed, normal General Appearance: no apparent distress, alert, GCS 15, non-toxic Head: normocephalic, atraumatic Eyes: bilateral eye normal inspection, bilateral eye PERRL ENT: hearing grossly normal, normal pharynx, no angioedema, normal voice Neck: full range of motion, supple/symm/no masses Respiratory: chest non-tender, lungs clear, normal breath sounds, speaking full sentences Cardiovascular #1: regular rate, rhythm, no edema Cardiovascular #2: 2+ carotid (R), 2+ carotid (L), 2+ radial (R), 2+ radial (L) , 2+ dorsalis pedis (R), 2+ dorsalis pedis (L) Gastrointestinal: normal bowel sounds, non tender, soft, non-distended, no guarding, no rebound Rectal: deferred Genitourinary: no CVA tenderness, other - hernandez catheter in place Musculoskeletal: back normal, gait/station normal, normal range of motion, non- tender Neurologic: alert, oriented x3, responsive, motor strength/tone normal, sensory intact, speech normal Psychiatric: judgement/insight normal, memory normal, mood/affect normal, no suicidal/homicidal ideation Reflexes: 3+ bicep (R), 3+ bicep (L), 3+ tricep (R), 3+ tricep (L), 3+ knee (R) , 3+ knee (L) Skin: normal color, no rash, warm/dry, well hydrated Lymphatic: no adenopathy Medical Decision Making Diagnostic Impression: Primary Impression: Urinary retention ER Course Hospital Course 68-year-old M presents to ED complaining of urinary retention with hernandez. h/o BPH Differential diagnoses include: obstruction, UTI, BPH Clinical course Patient placed on stretcher. After initial history and physical I replaced hernandez catheter with immediate improvement in urine flow Discussed findings with patient. History of BPH. We will prescribe Flomax and empirical antibiotics Safe for discharge with close outpatient follow-up. We'll provide urology referral Diagnosis - urinary retention Stable and discharged home with hernandez + leg bag with Rx for cipro, flomax. Instructed to followup with PMD/urologist. Return to ED if symptoms recur or worsen Last Vital Signs Date Time Temp Pulse Resp B/P (MAP) Pulse Ox O2 Delivery O2 Flow Rate FiO2 02/14/19 09:56 97.0 89 20 154/96 99 Room Air Status: improved Disposition: HOME, SELF-CARE Condition: Stable Scripts Ciprofloxacin Hcl* (CIPROFLOXACIN HCL*) 500 Mg Tablet 500 MG ORAL Q12H, #14 TAB 0 Refills Prov: Rahul Lucas MD 02/14/19 Tamsulosin HCl (Flomax) 0.4 Mg Cap.er.24h 0.4 MG ORAL DAILY, #10 CAP Prov: Rahul Lucas MD 02/14/19 Referrals: Steven Yi M.D., Sameer M.D. [facility],REFERRING (PCP) Patient Instructions: Benign Prostatic Hyperplasia Rahul Lucas MD February 14, 2019 12:35
[2019-02-19] MEDS ORDERED: CIPROFLOXACIN500 M2 ORAL ×2 (15:21)
[2019-02-23] MEDS ORDERED: BACTRIM DS TAB1 EAC1 ORAL ×2 (09:02)
[2019-04-26] MEDS ORDERED: CEPHALEXIN500 M1 ORAL ×4 (10:50→16:32)
[2019-07-14] MEDS ORDERED: NORCO 5-325 TA1 EACH ORAL (09:37)
[2019-07-14] MEDS ORDERED: LEVOFLOXACIN500 MG ORAL (09:37)
[2019-07-14] MEDS ORDERED: PHENAZOPYRIDIN200 MG ORAL (09:37)
[2019-07-14] MEDS ORDERED: CEPHALEXIN500 MG ORAL (10:43)
== END 2019-02-14 10:01 | disposition home or self-care (01) ==
LOC: EMR 09:55
DX: R33.9 Retention of urine, unspecified (principal)
CPT/HCPCS: 51702; 99284

== ENCOUNTER 2019-04-10 01:20 | Emergency (ER) | payer MEDICARE, MEDICAID ==
[~2019-04-10] VITALS: Ht 165.1 cm; Wt 79.4 kg
[~2019-04-10 01:20] MED LIST changes: +BACTRIM DS TAB1 EAC1 ORAL; +FLOMAX0.4 MG ORAL
[2019-04-10 01:28] VITALS: BP 165/102
--- NOTE | 2019-04-10 01:28 | NUR ---
ED Nurse Note: pt walked in c/o unable to urinate, pt states he has prostate problem and ever since catheter was removed today, pt cannot use restroom. pt reports pain, will cont monitor.
[2019-04-10] MEDS ORDERED: LEVAQUIN500 MG ORAL (01:34)
--- NOTE | 2019-04-10 01:35 | Emergency Room Report ---
History of Present Illness General Chief Complaint: Male Urogenital Problems Source: Patient, Medical Record Present Illness HPI This is a 68-year-old male with a history of urinary retention. Is with chief complaint of urinary retention. He had a Hale in for about 2 months. He saw his urologist in the office today. Hale was removed. Patient unable to urinate since then. He complained of a lot of pressure to the bladder suprapubic area. No nausea no vomiting. Pain is 10 out of 10. Has urgency but unable to urinate. Similar symptom in the past. Allergies: Coded Allergies: No Known Allergies (Unverified , 03/29/17) Patient History Past Medical History: see triage record, old chart reviewed Past Surgical History: other Pertinent Family History: none Social History: Denies: smoking Immunizations: other Reviewed Nursing Documentation: PMH: Agreed; PSxH: Agreed Nursing Documentation-PMH Hx Cardiac Problems: No Hx Cancer: No Hx Gastrointestinal Problems: No Hx Dialysis: No - Prostate surgery Hx Neurological Problems: No Review of Systems Eye: Denies: eye pain, blurred vision ENT: Denies: ear pain, nose congestion, throat swelling Respiratory: Denies: cough, shortness of breath Cardiovascular: Denies: chest pain, palpitations Gastrointestinal: Denies: abdominal pain, diarrhea, nausea, vomiting Genitourinary: Reports: retention Musculoskeletal: Denies: back pain, joint pain Skin: Denies: rash Neurological: Denies: headache, numbness Endocrine: Denies: increased thirst, increased urine Hematologic/Lymphatic: Denies: easy bruising All Other Systems: negative except mentioned in HPI Physical Exam Vital Signs Date Time Temp Pulse Resp B/P (MAP) Pulse Ox O2 Delivery O2 Flow Rate FiO2 04/10/19 01:22 98.2 100 18 165/102 (123) 100 Room Air Vitals with high blood pressure Genitourinary: other - distended bladder Neurologic: alert, oriented x3 Medical Decision Making Diagnostic Impression: Primary Impression: Urinary retention ER Course Patient presents with acute urinary retention. Better after Hale placement. Will discharge home. Last Vital Signs Date Time Temp Pulse Resp B/P (MAP) Pulse Ox O2 Delivery O2 Flow Rate FiO2 04/10/19 01:28 98.2 100 18 165/102 100 Room Air Status: improved Disposition: HOME, SELF-CARE Condition: Stable Scripts Levofloxacin* (LEVAQUIN*) 500 Mg Tablet 7 MG ORAL DAILY, #7 TAB Prov: Myke Westbrook MD 04/10/19 Additional Instructions: Follow-up with your urologist in a week. Return if symptoms worsen. Myke Westbrook MD Apr 10, 2019 01:35
--- NOTE | 2019-04-10 01:50 | NUR ---
ED Nurse Note: 16 fr hernandez inserted per ERMD, pt tolerated well, 10cc NS inserted, total of 500ML urine in the bag noted, yellow, pt reports pain relief, bag changed to leg bag and secured.
[2019-04-10 02:00] VITALS: BP 128/95
--- NOTE | 2019-04-10 02:01 | NUR ---
ED Nurse Note: PT CLEARED TO BE D/C PER ERMD, PT DISCHARGE AND AFTERCARE INSTRUCTION PROVIDED W/ PRESCRIPTION, PT EDUCATION DONE VIA DISCUSSION AND HANDOUT, PT ADVISED TO FOLLOW UP WITH PCP OR RETURN TO ED IF CHANGES IN CONDITION, VSS, AMBULATORY W/ STEADY GAIT, LEFT W/ ALL BELONGINGS.
[2019-04-11] MEDS ORDERED: TYLENOL EXTRA500 MG ORAL (14:24)
== END 2019-04-10 02:00 | disposition home or self-care (01) ==
LOC: EMR 01:58
DX: R33.9 Retention of urine, unspecified (principal)
CPT/HCPCS: 51702; 99282

== ENCOUNTER 2019-04-11 12:39 | Emergency (ER) | payer MEDICARE, MEDICAID ==
[~2019-04-11] VITALS: Ht 165.1 cm; Wt 76.2 kg
[~2019-04-11 12:39] MED LIST changes: +LEVAQUIN500 MG ORAL
[2019-04-11 12:50] VITALS: BP 128/93
--- NOTE | 2019-04-11 12:50 | NUR ---
ED Nurse Note: pt walked in to ER c/o male urogenital area pain 01/06. per pt, he had F[place] [facility] pain started today. pt aao x4 and ambulatory. skin clean and intact. calm and cooperative. 16 Fr F/C in placed intact. dark yellow urine without sediment noted in the bag.
--- NOTE | 2019-04-11 13:17 | NUR ---
ED Nurse Note: US initiated at bedside.
--- NOTE | 2019-04-11 14:00 | NUR ---
ED Nurse Note: US done at bedside.
--- NOTE | 2019-04-11 14:03 | Emergency Room Report ---
History of Present Illness General Chief Complaint: Male Urogenital Problems Source: Patient Present Illness HPI 68-year-old male presents ED for evaluation. Complaining of left testicular pain. States he was seen here on 04/10 early in the morning for urinary retention and Hale catheter was placed. States that he has been having left scrotal pain since then. States the Hale catheter is working. Pain is throbbing, 6 out of 10, nonradiating. Denies fevers or chills. Denies nausea or vomiting. No other aggravating relieving factors. Denies any other associated symptoms Allergies: Coded Allergies: No Known Allergies (Unverified , 03/29/17) Patient History Past Medical History: none Past Surgical History: none Pertinent Family History: none Social History: Denies: smoking, alcohol use, drug use Immunizations: UTD Reviewed Nursing Documentation: PMH: Agreed; PSxH: Agreed Nursing Documentation-PMH Hx Cardiac Problems: No Hx Cancer: No Hx Gastrointestinal Problems: No Hx Dialysis: No - Prostate surgery Hx Neurological Problems: No Review of Systems All Other Systems: negative except mentioned in HPI Physical Exam Vital Signs Date Time Temp Pulse Resp B/P (MAP) Pulse Ox O2 Delivery O2 Flow Rate FiO2 04/11/19 12:46 98.1 86 16 128/93 (105) 95 Room Air Sp02 EP Interpretation: reviewed, normal General Appearance: no apparent distress, alert, GCS 15, non-toxic Head: normocephalic Eyes: bilateral eye normal inspection, bilateral eye PERRL ENT: normal ENT inspection Neck: normal inspection Respiratory: normal inspection Cardiovascular #1: normal inspection Gastrointestinal: normal inspection Rectal: deferred Genitourinary: no CVA tenderness, other - L testicle TTP Musculoskeletal: normal inspection Neurologic: alert, oriented x3, responsive, motor strength/tone normal, sensory intact, speech normal Psychiatric: normal inspection Skin: normal color Lymphatic: normal inspection Medical Decision Making Diagnostic Impression: Primary Impression: Epididymitis ER Course Hospital Course 68-year-old male presents to ED with L testicular pain/swelling. Differential diagnoses include: hydrocele, varicocele, epididymitis, testicular torsion Clinical course Patient placed on stretcher. After initial history and physical I ordered scrotal US Ultrasound shows epididymitis. No evidence of torsion. Good flow to both testicles. Reassurance given discussed findings with patient. Patient was seen here yesterday for Hale catheter replacement. History of BPH. Was placed prophylactically on Levaquin. I explained the patient to Levaquin should provide adequate coverage for the epididymitis. Safe for discharge for close outpatient follow-up. States he has a urologist he will see Diagnosis - epididymtiis stable and discharged to home. continue levaquin as prescribed. Followup with PMD/urology. Return to ED if symptoms recur or worsen CT/MRI/US Diagnostic Results CT/MRI/US Diagnostic Results : Imaging Test Ordered: Scrotal US Last Vital Signs Date Time Temp Pulse Resp B/P (MAP) Pulse Ox O2 Delivery O2 Flow Rate FiO2 04/11/19 12:50 98.1 89 16 128/93 95 Room Air Status: improved Disposition: HOME, SELF-CARE Condition: Stable Scripts Acetaminophen* (TYLENOL EXTRA STRENGTH*) 500 Mg Tablet 500 MG ORAL Q8H PRN for Prn Headache/Temp > 101, #30 TAB 0 Refills Prov: Rahul Lucas MD 04/11/19 Referrals: [facility]/,REFERRING (PCP) Rahul Lucas MD Apr 11, 2019 14:03
[2019-04-11] MEDS ORDERED: TYLENOL EXTRA500 MG ORAL (14:24)
[2019-04-11 14:28] VITALS: BP 128/93
--- NOTE | 2019-04-11 14:29 | NUR ---
ER DISCHARGE NOTE: Patient is cleared to be discharged per ERMD after discussing US results, pt is aox4, on room air, with stable vital signs. pt was given dc and prescription instructions, pt still has 16 Fr F/C intact, pt was able to verbalize understanding, pt id band removed. pt is able to ambulate with steady gait. pt took all belongings.
--- NOTE | 2019-04-12 13:59 | Diagnostic Imaging Report ---
Indications: Scrotal pain Technique: Grayscale and duplex images of the scrotum Comparison: none Findings:The right testicle measures 5.4cm in length. It demonstrates normal echogenicity. Normal Doppler flow. There is cystic dilatation of the rete testis. There is a 3 mm cyst in the epididymal head. There is a small hydrocele. This contains debris.. The left testicle measures 4.9 cm in length. It demonstrates normal echogenicity. Liver demonstrates equivocally increased blood flow. Normal epididymis. There is enlargement and hyperemia of the left epididymis. There is a small hydrocele which contains debris. Impression: Findings consistent with left epididymitis and possible orchitis Bilateral hydroceles Negative for testicular torsion This agrees with the preliminary interpretation provided overnight by [facility] teleradiology service.
== END 2019-04-11 14:29 | disposition home or self-care (01) ==
LOC: EMR 13:26
DX: N45.1 Epididymitis (principal)
CPT/HCPCS: 76870; 99284

== ENCOUNTER 2019-04-23 18:24 | Emergency (ER) | payer OTHER, MEDICAID ==
[~2019-04-23] VITALS: Ht 165.1 cm; Wt 79.4 kg
[~2019-04-23 18:24] MED LIST changes: +TYLENOL EXTRA500 MG ORAL
[2019-04-23 18:45] VITALS: BP 159/96
--- NOTE | 2019-04-23 18:47 | NUR ---
ED Nurse Note: walked in to ED due to unable to urinated. pt came with 16 F hernandez catheter and seen by urologist today. pt also c/o constipation. last BM was today 0200. AAO x4. respirations even and non-labored noted. will wait for the further order.
--- NOTE | 2019-04-23 19:01 | NUR ---
HAND-OFF: Report given to COLIN Nieto. endorsed hernandez insertion.
[2019-04-23] MEDS ORDERED: Isovue-300 100ml vial INJ PRN (19:15)
--- NOTE | 2019-04-23 19:15 | NUR ---
ED Nurse Note: Folley catheter was changed, 16 F was placed, patient tolerated procedure well.
--- NOTE | 2019-04-23 19:43 | Diagnostic Imaging Report ---
EXAM: XR Abdomen, 1 View CLINICAL HISTORY: ABD PAIN TECHNIQUE: Frontal supine view of the abdomen/pelvis. COMPARISON: No relevant prior studies available. FINDINGS: Gastrointestinal tract: Abundant stool is projected in the region of the cecum/ascending colon. There are multiple air-filled loops of bowel. No definite plain film evidence for significant bowel loop dilation to suggest an obstructive process. Bones/joints: Degenerative changes of the thoracolumbar spine. IMPRESSION: Abundant stool is projected in the region of the cecum/ascending colon.
[2019-04-23 19:45] LABS: ANION GAP 8 mmol/L (5-15); BLOOD UREA NITROGEN 16 mg/dL (7-18); CALCIUM 10.5 MG/DL (8.5-10.1); CARBON DIOXIDE 30 MMOL/L (21-32); CHLORIDE 106 MMOL/L (98-107); POTASSIUM 3.9 MMOL/L (3.5-5.1); SODIUM 143 MMOL/L (136-145)
[2019-04-23 19:49] LABS: ALANINE AMINOTRANSFERASE 12 U/L (12-78); ALBUMIN 3.6 G/DL (3.4-5.0); ALBUMIN/GLOBULIN RATIO 0.9 (1.0-2.7); ALKALINE PHOSPHATASE 61 U/L (46-116); ASPARTATE AMINO TRANSFERASE 11 U/L (15-37); BILIRUBIN,TOTAL 0.9 MG/DL (0.2-1.0)
[2019-04-23 20:02] LABS: HEMATOCRIT 43.9 % (42.0-52.0); HEMOGLOBIN 15.5 G/DL (14.2-18.0); MEAN CORPUSCULAR VOLUME 90 FL (80-99); PLATELET COUNT 369 K/UL (150-450); RED BLOOD COUNT 4.89 M/UL (4.70-6.10); RED CELL DISTRIBUTION WIDTH 10.7 % (11.6-14.8)
[2019-04-23 20:08] LABS: WHITE BLOOD COUNT 22.2 K/UL (4.8-10.8)
--- NOTE | 2019-04-23 21:10 | Diagnostic Imaging Report ---
EXAM: CT Abdomen and Pelvis With Intravenous Contrast CLINICAL HISTORY: ABD PAIN TECHNIQUE: Axial computed tomography images of the abdomen and pelvis with intravenous contrast. CTDI is 0.15, 13.24 mGy and DLP is 806 mGy-cm. One or more of the following dose reduction techniques were used: automated exposure control, adjustment of the mA and/or kV according to patient size, use of iterative reconstruction technique. Coronal and sagittal reformatted images were created and reviewed. COMPARISON: 03/29/17 FINDINGS: Lung bases: Mild atelectasis at the lung bases. Heart: Mild cardiomegaly. ABDOMEN: Liver: Small nonspecific 3 mm low-density lesion in the anterior segment of the right lobe of the liver which is too small to adequately characterize. This was likely present on the prior exam. Gallbladder and bile ducts: The gallbladder is unremarkable. No calcified stones. No ductal dilation. Pancreas: The pancreas is unremarkable. No ductal dilation. Spleen: The spleen is unremarkable. Adrenals: The adrenals are unremarkable. Kidneys and ureters: The kidneys are unremarkable. No hydronephrosis. Stomach and bowel: Evaluation of the descending and rectosigmoid colon is limited secondary to poor distention. No definite evidence for bowel related inflammatory changes. No evidence for significant bowel loop dilation to suggest an obstructive process. PELVIS: Appendix: The appendix is normal. Bladder: Evaluation of the bladder is limited secondary to poor distention. There is question of some wall thickening of the bladder. Hale catheter in the bladder. Reproductive: Again noted is a significantly enlarged and heterogeneous prostate gland which impinges upon the base of the bladder. The prostate gland measures approximately 7.1 x 5.9 cm in transverse dimensions. ABDOMEN and PELVIS: Intraperitoneal space: No free intraperitoneal fluid or free intraperitoneal gas. Bones/joints: Degenerative changes of the thoracolumbar spine. Mild vertebral body compression fractures suspected at T11, T12, and L1 which have a similar appearance compared to the prior exam. No dislocation. Soft tissues: Unremarkable. Vasculature: Unremarkable. No abdominal aortic aneurysm. Lymph nodes: Small nonspecific retroperitoneal lymph nodes. IMPRESSION: 1. Again noted is a significantly enlarged and heterogeneous prostate gland which impinges upon the base of the bladder. The prostate gland measures approximately 7.1 x 5.9 cm in transverse dimensions. 2. Mild cardiomegaly. 3. Evaluation of the bladder is limited secondary to poor distention. There is question of some wall thickening of the bladder.
--- NOTE | 2019-04-23 21:16 | Emergency Room Report ---
History of Present Illness General Chief Complaint: Male Urogenital Problems Source: Patient (Rahul Lucas MD) Present Illness HPI 68-year-old male presents ED for evaluation. Is here for Hale catheter change. History of BPH. States it feels clogged x1 day. Denies dysuria or hematuria. Denies fevers or chills. Denies flank pain. Also complaining of abdominal pain x1 day. Pain is sharp, 7 out of 10, nonradiating. No other aggravating relieving factors. Denies any other associated symptoms (Rahul Lucas MD) Allergies: Coded Allergies: No Known Allergies (Unverified , 03/29/17) Patient History Past Medical History: other - BPH Past Surgical History: none Pertinent Family History: none Social History: Denies: smoking, alcohol use, drug use Immunizations: UTD Reviewed Nursing Documentation: PMH: Agreed; PSxH: Agreed (Rahul Lucas MD) Nursing Documentation-PMH Past Medical History: No History, Except For Hx Cardiac Problems: No Hx Cancer: No Hx Gastrointestinal Problems: No Hx Dialysis: No - Prostate surgery Hx Neurological Problems: No (Rahul Lucas MD) Review of Systems All Other Systems: negative except mentioned in HPI (Rahul Lucas MD) Physical Exam Vital Signs Date Time Temp Pulse Resp B/P (MAP) Pulse Ox O2 Delivery O2 Flow Rate FiO2 04/23/19 18:28 98.2 102 20 159/96 (117) 99 Room Air Sp02 EP Interpretation: reviewed, normal General Appearance: no apparent distress, alert, GCS 15, non-toxic Head: normocephalic, atraumatic Eyes: bilateral eye normal inspection, bilateral eye PERRL ENT: hearing grossly normal, normal pharynx, no angioedema, normal voice Neck: full range of motion, supple/symm/no masses Respiratory: chest non-tender, lungs clear, normal breath sounds, speaking full sentences Cardiovascular #1: regular rate, rhythm, no edema Cardiovascular #2: 2+ carotid (R), 2+ carotid (L), 2+ radial (R), 2+ radial (L) , 2+ dorsalis pedis (R), 2+ dorsalis pedis (L) Gastrointestinal: normal bowel sounds, soft, non-distended, no guarding, no rebound, tenderness Rectal: deferred Genitourinary: normal inspection, no CVA tenderness Musculoskeletal: back normal, gait/station normal, normal range of motion, non- tender Neurologic: alert, oriented x3, responsive, motor strength/tone normal, sensory intact, speech normal Psychiatric: judgement/insight normal, memory normal, mood/affect normal, no suicidal/homicidal ideation Reflexes: 3+ bicep (R), 3+ bicep (L), 3+ tricep (R), 3+ tricep (L), 3+ knee (R) , 3+ knee (L) Lymphatic: no adenopathy (Rahul Lucas MD) Medical Decision Making Diagnostic Impression: Primary Impression: UTI (urinary tract infection) Qualified Codes: N30.00 - Acute cystitis without hematuria Additional Impression: Suprapubic catheter Labs Test 04/23/19 19:20 White Blood Count 22.2 K/UL (4.8-10.8) Red Blood Count 4.89 M/UL (4.70-6.10) Hemoglobin 15.5 G/DL (14.2-18.0) Hematocrit 43.9 % (42.0-52.0) Mean Corpuscular Volume 90 FL (80-99) Mean Corpuscular Hemoglobin 31.6 PG (27.0-31.0) Mean Corpuscular Hemoglobin Concent 35.2 G/DL (32.0-36.0) Red Cell Distribution Width 10.7 % (11.6-14.8) Platelet Count 369 K/UL (150-450) Mean Platelet Volume 5.4 FL (6.5-10.1) Neutrophils (%) (Auto) % (45.0-75.0) Lymphocytes (%) (Auto) % (20.0-45.0) Monocytes (%) (Auto) % (1.0-10.0) Eosinophils (%) (Auto) % (0.0-3.0) Basophils (%) (Auto) % (0.0-2.0) Differential Total Cells Counted 100 Neutrophils % (Manual) 88 % (45-75) Lymphocytes % (Manual) 7 % (20-45) Monocytes % (Manual) 5 % (1-10) Eosinophils % (Manual) 0 % (0-3) Basophils % (Manual) 0 % (0-2) Band Neutrophils 0 % (0-8) Platelet Estimate Adequate Platelet Morphology Normal Red Blood Cell Morphology Normal Sodium Level 143 MMOL/L (136-145) Potassium Level 3.9 MMOL/L (3.5-5.1) Chloride Level 106 MMOL/L (98-107) Carbon Dioxide Level 30 MMOL/L (21-32) Anion Gap 8 mmol/L (5-15) Blood Urea Nitrogen 16 mg/dL (7-18) Creatinine 1.0 MG/DL (0.55-1.30) Estimat Glomerular Filtration Rate > 60 mL/min (>60) Glucose Level 153 MG/DL (74-106) Calcium Level 10.5 MG/DL (8.5-10.1) Total Bilirubin 0.9 MG/DL (0.2-1.0) Aspartate Amino Transf (AST/SGOT) 11 U/L (15-37) Alanine Aminotransferase (ALT/SGPT) 12 U/L (12-78) Alkaline Phosphatase 61 U/L (46-116) Total Protein 7.6 G/DL (6.4-8.2) Albumin 3.6 G/DL (3.4-5.0) Globulin 4.0 g/dL Albumin/Globulin Ratio 0.9 (1.0-2.7) Lipase 97 U/L (73-393) (Rahul Lucas MD) ER Course Patient presents with bladder pain. He was signed out to me. CT scans unremarkable. He does have evidence of infection. He grew out E. coli in the past. I gave him a dose of Rocephin here. Will discharge home with antibiotics. (Myke Westbrook MD) Other X-Ray Diagnostic Results Other X-Ray Diagnostic Results : X-Ray ordered: KUB # of Views/Limited Vs Complete: 1 View Indication: Pain EP Interpretation: Yes Interpretation: other - fecal impaction. dilated loops of bowel Impression: Other - constipation Electronically Signed by: Electronically signed by Rahul Lucas MD (Rahul Lucas MD) CT/MRI/US Diagnostic Results CT/MRI/US Diagnostic Results : Imaging Test Ordered: CT A/P Impression IMPRESSION: 1. Again noted is a significantly enlarged and heterogeneous prostate gland which impinges upon the base of the bladder. The prostate gland measures approximately 7.1 x 5.9 cm in transverse dimensions. 2. Mild cardiomegaly. 3. Evaluation of the bladder is limited secondary to poor distention. There is question of some wall thickening of the bladder. (Rahul Lucas MD) Last Vital Signs Date Time Temp Pulse Resp B/P (MAP) Pulse Ox O2 Delivery O2 Flow Rate FiO2 04/23/19 18:45 98.2 102 20 159/96 99 Room Air Status: improved (Rahul Lucas MD) Status: improved (Myke Westbrook MD) Disposition: HOME, SELF-CARE Condition: Stable Scripts Trimethoprim/Sulfamethoxazole 160/800* (BACTRIM DS TABLET*) 1 Each Tablet 1 TAB ORAL Q12H, #14 TAB 0 Refills Prov: Myke Westbrook MD 04/23/19 Referrals: [facility],REFERRING (PCP) Patient Instructions: Urinary Tract Infection Additional Instructions: Increase fluids. Follow-up with your doctor in 7 days. Return if worse. Rahul Lucas MD Apr 23, 2019 21:16 Myke Westbrook MD Apr 23, 2019 22:05
[2019-04-23 21:33] LABS: APPEARANCE,URINE CLEAR; BILIRUBIN, URINE NEGATIVE (NEGATIVE); COLOR,URINE PALE YELLOW; GLUCOSE, URINE (UA) NEGATIVE (NEGATIVE); KETONES,URINE 2+ (NEGATIVE); LEUKOCYTE ESTERASE ,URINE 3+ (NEGATIVE); NITRITE,URINE POSITIVE (NEGATIVE); PH,URINE 6 (4.5-8.0); PROTEIN,URINE 3+ (NEGATIVE); UROBILINOGEN,URINE NORMAL MG/DL (0.0-1.0)
[2019-04-23 21:41] VITALS: BP 150/89
[2019-04-23] MEDS ORDERED: cefTRIAXone 1 GM in NS 55 ML IVPB ONE (21:45)
[2019-04-23] MEDS ORDERED: BACTRIM DS TAB1 EAC1 ORAL (22:06)
[2019-04-23 22:39] VITALS: BP 150/89
--- NOTE | 2019-04-23 22:40 | NUR ---
ER DISCHARGE NOTE: Patient is cleared to be discharged per ERMD, pt is aox4, on room air, with stable vital signs. pt was given dc and prescription instructions, pt was able to verbalize understanding, pt id band and iv site removed without complications. pt is able to ambulate with steady gait. pt took all belongings.
[2019-04-26] MEDS ORDERED: CEPHALEXIN500 M1 ORAL ×3 (10:50→16:32)
== END 2019-04-23 22:40 | disposition home or self-care (01) ==
LOC: EMR 19:15
DX: N39.0 Urinary tract infection, site not specified (principal); Z46.6 Encounter for fitting and adjustment of urinary device; N40.0 Benign prostatic hyperplasia without lower urinary tract symptoms
CPT/HCPCS: 36415; 74018; 74177; 80053; 81003; 83690; 85007; 85025; 87086; 87181; 96361; 96365; 99284; J0696; J7040; Q9967

== ENCOUNTER 2019-05-05 19:44 | Emergency (ER) | payer OTHER, MEDICAID ==
[~2019-05-05] VITALS: Ht 165.1 cm; Wt 71.7 kg
[~2019-05-05 19:44] MED LIST changes: +CEPHALEXIN500 M1 ORAL
[2019-05-05 19:51] VITALS: BP 144/93
--- NOTE | 2019-05-05 19:51 | NUR ---
ED Nurse Note: PT WALKED IN C/O NO URINE IN THE BAG X 2 DAYS.
[2019-05-05] MEDS ORDERED: cefTRIAXone 1 GM in NS 55 ML IVPB ONE (20:00)
--- NOTE | 2019-05-05 20:10 | NUR ---
ED Nurse Note: urine and blood specimen sent to lab
[2019-05-05 20:23] LABS: APPEARANCE,URINE CLOUDY; BASOPHILS % (AUTO) 1.4 % (0.0-2.0); BILIRUBIN, URINE NEGATIVE (NEGATIVE); COLOR,URINE BROWN; EOSINOPHILS % (AUTO) 7.2 % (0.0-3.0); GLUCOSE, URINE (UA) NEGATIVE (NEGATIVE); HEMATOCRIT 40.2 % (42.0-52.0); KETONES,URINE NEGATIVE (NEGATIVE); LEUKOCYTE ESTERASE ,URINE 3+ (NEGATIVE); LYMPHOCYTES % (AUTO) 23.1 % (20.0-45.0); MEAN CORPUSCULAR VOLUME 89 FL (80-99); MONOCYTES % (AUTO) 6.5 % (1.0-10.0); NEUTROPHILS % (AUTO) 61.8 % (45.0-75.0); NITRITE,URINE NEGATIVE (NEGATIVE); PH,URINE 5 (4.5-8.0); PLATELET COUNT 447 K/UL (150-450); PROTEIN,URINE 3+ (NEGATIVE); RED BLOOD COUNT 4.53 M/UL (4.70-6.10); RED CELL DISTRIBUTION WIDTH 10.6 % (11.6-14.8); UROBILINOGEN,URINE NORMAL MG/DL (0.0-1.0); WHITE BLOOD COUNT 9.1 K/UL (4.8-10.8)
[2019-05-05 20:31] LABS: ANION GAP 9 mmol/L (5-15); BLOOD UREA NITROGEN 19 mg/dL (7-18); CALCIUM 9.6 MG/DL (8.5-10.1); CARBON DIOXIDE 27 MMOL/L (21-32); CHLORIDE 109 MMOL/L (98-107); POTASSIUM 3.9 MMOL/L (3.5-5.1); SODIUM 145 MMOL/L (136-145)
[2019-05-05 20:35] LABS: ALANINE AMINOTRANSFERASE 24 U/L (12-78); ALBUMIN 3.1 G/DL (3.4-5.0); ALBUMIN/GLOBULIN RATIO 0.7 (1.0-2.7); ALKALINE PHOSPHATASE 81 U/L (46-116); ASPARTATE AMINO TRANSFERASE 14 U/L (15-37); BILIRUBIN,TOTAL 0.5 MG/DL (0.2-1.0)
--- NOTE | 2019-05-05 20:45 | NUR ---
ER DISCHARGE NOTE: Patient is cleared to be discharged per ERMD, pt is aox4, on room air, with stable vital signs. pt was given dc instructions, pt was able to verbalize understanding, pt id band and iv site removed without complications. pt is able to ambulate with steady gait. pt took all belongings.
[2019-05-05 20:47] VITALS: BP 134/89
--- NOTE | 2019-05-05 20:51 | Emergency Room Report ---
History of Present Illness General Chief Complaint: Male Urogenital Problems Source: Patient, Medical Record Present Illness HPI Patient has a history of urinary retention. Patient has indwelling Hale. Patient was also seen here recently for orchitis. Patient is complaining of persistent testicular discomfort. Also in addition he has had difficulty with urination from his Hale bag in the last 2 days. He denies any nausea vomiting or chills. No other complaints are noted. Symptoms noted to be severe. No other modifying factors. No other associated signs and symptoms. No other complaints were noted. Allergies: Coded Allergies: No Known Allergies (Unverified , 03/29/17) Patient History Past Medical History: other - Urinary retention, renal insufficiency, orchitis Past Surgical History: none Pertinent Family History: none Social History: Denies: smoking, alcohol use, drug use Reviewed Nursing Documentation: PMH: Agreed; PSxH: Agreed Nursing Documentation-PMH Hx Cardiac Problems: No Hx Cancer: No Hx Gastrointestinal Problems: No Hx Dialysis: No - Prostate surgery Hx Neurological Problems: No Review of Systems All Other Systems: negative except mentioned in HPI Physical Exam Vital Signs Date Time Temp Pulse Resp B/P (MAP) Pulse Ox O2 Delivery O2 Flow Rate FiO2 05/05/19 19:46 98.2 78 18 144/93 (110) 94 Room Air Sp02 EP Interpretation: reviewed, normal General Appearance: normal inspection, well appearing, no apparent distress, alert Head: atraumatic Eyes: bilateral eye PERRL ENT: normal ENT inspection, hearing grossly normal, normal voice Neck: normal inspection, full range of motion, supple, no bony tend Respiratory: normal inspection, lungs clear, normal breath sounds, no respiratory distress, no retraction, no wheezing Cardiovascular #1: regular rate, rhythm, no edema Gastrointestinal: normal inspection, normal bowel sounds, non tender, soft, no guarding, no hernia Genitourinary: no CVA tenderness, other - Enlarged left testicle. No evidence of torsion Musculoskeletal: normal inspection, back normal, normal range of motion Neurologic: normal inspection, alert, responsive, speech normal Psychiatric: normal inspection, judgement/insight normal, mood/affect normal Skin: no rash Medical Decision Making Diagnostic Impression: Primary Impression: Urinary retention Additional Impressions: Epididymitis Malfunction of Hale catheter ER Course Patient presents emergency department today complaining of urinary retention malfunctioning Hale and testicular swelling. Differential diagnosis include orchitis, Hale malfunction, infectious process, renal failure just name few. Given the severity of the patient's presentation I felt this is a highly complex patient. This patient required extensive workup. Patient's laboratory work-up was not impressive. Hale was exchanged and patient had good urine output. Review of medical records show the patient was recently treated for epididymitis with Levaquin. Patient also had a testicle ultrasound performed recently. Given the patient is very treating and seeing a primary care physician and has a follow-up I recommend follow-up with his primary care physician outpatient urologist. Patient was also given 1 dose of Rocephin here in case this is sexually transmitted. Patient was also on Keflex and Bactrim and he is advised to continue his medications. Patient is advised to follow up with primary doctor in 2-3 days and return the emergency room for any worsening symptoms and as needed. Urine does show evidence UTI with WBCs in the urine. However I felt that this could be secondary to colonization from the Hale. Patient is very on antibiotics. Labs Test 05/05/19 20:13 White Blood Count 9.1 K/UL (4.8-10.8) Red Blood Count 4.53 M/UL (4.70-6.10) Hemoglobin 14.0 G/DL (14.2-18.0) Hematocrit 40.2 % (42.0-52.0) Mean Corpuscular Volume 89 FL (80-99) Mean Corpuscular Hemoglobin 30.9 PG (27.0-31.0) Mean Corpuscular Hemoglobin Concent 34.8 G/DL (32.0-36.0) Red Cell Distribution Width 10.6 % (11.6-14.8) Platelet Count 447 K/UL (150-450) Mean Platelet Volume 4.8 FL (6.5-10.1) Neutrophils (%) (Auto) 61.8 % (45.0-75.0) Lymphocytes (%) (Auto) 23.1 % (20.0-45.0) Monocytes (%) (Auto) 6.5 % (1.0-10.0) Eosinophils (%) (Auto) 7.2 % (0.0-3.0) Basophils (%) (Auto) 1.4 % (0.0-2.0) Urine Color Brown Urine Appearance Cloudy Urine pH 5 (4.5-8.0) Urine Specific [place] 1.025 (1.005-1.035) Urine Protein 3+ (NEGATIVE) Urine Glucose (UA) Negative (NEGATIVE) Urine Ketones Negative (NEGATIVE) Urine Blood 5+ (NEGATIVE) Urine Nitrite Negative (NEGATIVE) Urine Bilirubin Negative (NEGATIVE) Urine Urobilinogen Normal MG/DL (0.0-1.0) Urine Leukocyte Esterase 3+ (NEGATIVE) Urine RBC Tntc /HPF (0 - 0) Urine WBC Tntc /HPF (0 - 0) Urine Squamous Epithelial Cells Occasional /LPF Urine Bacteria Many /HPF (NONE) Urine Yeast Few /HPF (NONE) Sodium Level 145 MMOL/L (136-145) Potassium Level 3.9 MMOL/L (3.5-5.1) Chloride Level 109 MMOL/L (98-107) Carbon Dioxide Level 27 MMOL/L (21-32) Anion Gap 9 mmol/L (5-15) Blood Urea Nitrogen 19 mg/dL (7-18) Creatinine 1.0 MG/DL (0.55-1.30) Estimat Glomerular Filtration Rate > 60 mL/min (>60) Glucose Level 110 MG/DL (74-106) Calcium Level 9.6 MG/DL (8.5-10.1) Total Bilirubin 0.5 MG/DL (0.2-1.0) Aspartate Amino Transf (AST/SGOT) 14 U/L (15-37) Alanine Aminotransferase (ALT/SGPT) 24 U/L (12-78) Alkaline Phosphatase 81 U/L (46-116) Total Protein 7.5 G/DL (6.4-8.2) Albumin 3.1 G/DL (3.4-5.0) Globulin 4.4 g/dL Albumin/Globulin Ratio 0.7 (1.0-2.7) Last Vital Signs Date Time Temp Pulse Resp B/P (MAP) Pulse Ox O2 Delivery O2 Flow Rate FiO2 05/05/19 19:51 98.2 78 18 144/93 94 Room Air Status: improved Disposition: HOME, SELF-CARE Condition: Stable Patient Instructions: Hale Catheter Care, Adult, [id number] Francis Lennon MD May 05, 2019 20:51
== END 2019-05-05 20:45 | disposition home or self-care (01) ==
LOC: EMR 20:35
DX: T83.091A Other mechanical complication of indwelling urethral catheter, initial encounter (principal); R33.9 Retention of urine, unspecified; N45.1 Epididymitis
CPT/HCPCS: 36415; 51702; 80053; 81003; 85025; 87086; 96365; 99284; J0696

== ENCOUNTER 2019-05-06 06:42 | Emergency (ER) | payer OTHER, MEDICAID ==
[~2019-05-06] VITALS: Ht 165.1 cm; Wt 71.7 kg
[2019-05-06 07:05] VITALS: BP 129/80
--- NOTE | 2019-05-06 07:05 | NUR ---
ED Nurse Note: pt ambulated to ed c/o dislodged hernandez cath.
--- NOTE | 2019-05-06 07:08 | Emergency Room Report ---
History of Present Illness General Chief Complaint: Male Urogenital Problems Source: Patient, Medical Record Present Illness HPI The patient woke up this morning his Hale catheter had come out. He denies any pain. He has difficulty urinating without the catheter. He was seen here on 23 April with UTI. He was started on Bactrim however the bacteria which grew was resistant. He was called a prescription of Keflex which she had not filled yet. He denies fevers or chills. He denies dysuria. There is no flank pain. No sore throat, chest pain, palpitations, nausea, vomiting, diarrhea, abdominal pain, shortness of breath, joint pain, rashes, depression, anxiety, visual changes, headache. History of bladder cancer and transurethral resection of the prostate. Allergies: Coded Allergies: No Known Allergies (Unverified , 03/29/17) Patient History Past Medical History: see triage record, old chart reviewed Past Surgical History: other - Prostate surgery Social History: Denies: smoking Social History Narrative From home Reviewed Nursing Documentation: PMH: Agreed; PSxH: Agreed Nursing Documentation-PMH Hx Cardiac Problems: No Hx Cancer: No Hx Gastrointestinal Problems: No Hx Dialysis: No - Prostate surgery Hx Neurological Problems: No Review of Systems All Other Systems: negative except mentioned in HPI Physical Exam Vital Signs Date Time Temp Pulse Resp B/P (MAP) Pulse Ox O2 Delivery O2 Flow Rate FiO2 05/06/19 06:52 98.6 74 16 129/80 (96) 98 Room Air Sp02 EP Interpretation: reviewed, normal General Appearance: well appearing, no apparent distress, GCS 15 Head: normocephalic Eyes: bilateral eye normal inspection, bilateral eye PERRL ENT: moist mucus membranes Neck: full range of motion Respiratory: speaking full sentences Cardiovascular #1: regular rate, rhythm Cardiovascular #2: 2+ radial (R) Gastrointestinal: normal inspection, normal bowel sounds, non tender, soft Genitourinary: no CVA tenderness, other - Hale is disconnected without hematuria or blood at the meatus Musculoskeletal: gait/station normal Neurologic: alert, grossly normal Psychiatric: mood/affect normal Skin: no rash Medical Decision Making Diagnostic Impression: Primary Impression: Urinary retention Additional Impression: UTI (urinary tract infection) Qualified Codes: T83.511D - Infection and inflammatory reaction due to indwelling urethral catheter, subsequent encounter; N39.0 - Urinary tract infection, site not specified ER Course The patient presents with dislodgment of his Hale catheter. He needs to have a Hale replaced. He also has a UTI that has resistant bug. He also needs to get a dose of Keflex. The patient denies any significant symptoms heralding acute emergency at this time. Urinalysis does not need to be repeated at this time Improved after placement of Hale. Draining clear urine. The patient is stable for outpatient observation and treatment. Last Vital Signs Date Time Temp Pulse Resp B/P (MAP) Pulse Ox O2 Delivery O2 Flow Rate FiO2 05/06/19 07:17 98.6 88 16 127/84 100 Room Air Status: improved Disposition: HOME, SELF-CARE Condition: Improved Davonte Bruce MD May 06, 2019 07:08
[2019-05-06] MEDS ORDERED: Cephalexin 500mg cap ORAL ONE (07:15)
[2019-05-06 07:17] VITALS: BP 127/84
--- NOTE | 2019-05-06 07:18 | NUR ---
ER DISCHARGE NOTE: Patient is cleared to be discharged per ERMD, pt is aox4, on room air, with stable vital signs. pt was given dc and prescription instructions, pt was able to verbalize understanding, pt id bandremoved. pt is able to ambulate with steady gait. pt took all belongings.
== END 2019-05-06 07:18 | disposition home or self-care (01) ==
LOC: EMR 07:15
DX: R33.9 Retention of urine, unspecified (principal); T83.511A Infection and inflammatory reaction due to indwelling urethral catheter, initial encounter; Y84.6 Urinary catheterization as the cause of abnormal reaction of the patient, or of later complication, without mention of misadventure at the time of the procedure; Y92.9 Unspecified place or not applicable
CPT/HCPCS: 51702; 99284

== ENCOUNTER 2020-09-26 12:52 | Emergency (ER) | payer MEDICARE, MEDICAID ==
[~2020-09-26] VITALS: Ht 165.1 cm; Wt 68.0 kg
[~2020-09-26 12:52] MED LIST changes: +CEPHALEXIN500 MG ORAL; +FLUCONAZOLE100 MG ORAL; +NORCO 5-325 TA1 EACH ORAL; +PHENAZOPYRIDIN200 MG ORAL
--- NOTE | 2020-09-26 13:00 | NUR ---
ED Nurse Note: Pt arrived to ED on wheelchair states he was sent by for possible blood clot on left leg. pt reports being positive for covid 2 weeks ago. vss, a/ox4, ambulatory, and noted, denies pain at this time.
--- NOTE | 2020-09-26 13:35 | NUR ---
ED Nurse Note: ultrasound at bedside.
[2020-09-26 13:38] VITALS: BP 137/95
[2020-09-26] MEDS ORDERED: Omnipaque 350 100ml vial INJ PRN (14:15)
[2020-09-26] MEDS ORDERED: Enoxaparin 80mg Inj SUBQ ONE (14:15)
[2020-09-26 14:19] LABS: BASOPHILS % (AUTO) 2.6 % (0.0-2.0); EOSINOPHILS % (AUTO) 3.4 % (0.0-3.0); HEMATOCRIT 38.1 % (42.0-52.0); HEMOGLOBIN 14.1 G/DL (14.2-18.0); LYMPHOCYTES % (AUTO) 17.5 % (20.0-45.0); MEAN CORPUSCULAR VOLUME 84 FL (80-99); MONOCYTES % (AUTO) 5.7 % (1.0-10.0); NEUTROPHILS % (AUTO) 70.7 % (45.0-75.0); PLATELET COUNT 565 K/UL (150-450); RED BLOOD COUNT 4.51 M/UL (4.70-6.10); RED CELL DISTRIBUTION WIDTH 13.1 % (11.6-14.8); WHITE BLOOD COUNT 9.7 K/UL (4.8-10.8)
--- NOTE | 2020-09-26 14:31 | Diagnostic Imaging Report ---
Indication: Left Leg pain and swelling Technique: Grayscale and duplex Doppler imaging of the veins in left lower extremity performed in real time utilizing compression and augmentation. Comparison: None Findings: There is echogenic thrombus with lack of compressibility involving the left common femoral vein and visualized portions of the proximal, mid and distal femoral veins as well as the popliteal vein. Clot also seen in calf veins. The imaged portions of the greater saphenous vein are patent. IMPRESSION: Extensive DVT of the left lower extremity spanning from the popliteal vein through the left common femoral vein, also involving veins in the calf. This is consistent with the preliminary report generated by the scanning pathology technologist. Findings of the report were communicated to the treating MUSIC VIDEO DIRECTOR (Ming) as well as the treating ER physician by the pathology technologist, as documented in the preliminary report.
[2020-09-26 14:33] LABS: ANION GAP 5 mmol/L (5-15); BLOOD UREA NITROGEN 15 mg/dL (7-18); CALCIUM 8.9 MG/DL (8.5-10.1); CARBON DIOXIDE 30 MMOL/L (21-32); CHLORIDE 104 MMOL/L (98-107); CREATININE 0.8 MG/DL (0.55-1.30); POTASSIUM 3.8 MMOL/L (3.5-5.1); SODIUM 139 MMOL/L (136-145)
--- NOTE | 2020-09-26 14:35 | Emergency Room Report ---
History of Present Illness General Chief Complaint: General Complaint Source: Patient Present Illness HPI 70-year-old male history of hypertension presents with left leg swelling x days, history of Covid, no aggravating alleviating factors severity is mild, constant patient denies any shortness of breath endorses some tachycardia patient sent in for evaluation of DVT and tachycardia times days Allergies: Coded Allergies: No Known Allergies (Unverified , 03/29/17) COVID-19 Screening Contact w/high risk pt: No Experienced COVID-19 symptoms?: No COVID-19 Testing performed TRANSFERRER: Yes - 09/11/2020 COVID-19 Screening: Positive COVID-19 COVID-19 Testing Source: oral Patient History Past Medical History: see triage record Reviewed Nursing Documentation: PMH: Agreed; PSxH: Agreed Nursing Documentation-PMH Past Medical History: No History, Except For Hx Cardiac Problems: No Hx Hypertension: Yes Hx Cancer: No Hx Gastrointestinal Problems: No Hx Dialysis: No - Prostate surgery Hx Neurological Problems: No Review of Systems All Other Systems: negative except mentioned in HPI Physical Exam Vital Signs Date Time Temp Pulse Resp B/P (MAP) Pulse Ox O2 Delivery O2 Flow Rate FiO2 09/26/20 12:56 98.2 128 17 137/95 (109) 100 Room Air Sp02 EP Interpretation: reviewed, normal General Appearance: well appearing, no apparent distress, alert Head: normocephalic, atraumatic Eyes: bilateral eye PERRL, bilateral eye EOMI ENT: uvula midline, moist mucus membranes Neck: supple, thyroid normal, supple/symm/no masses Respiratory: lungs clear, no respiratory distress, no retraction, no accessory muscle use Cardiovascular #1: normal peripheral pulses, regular rate, rhythm, no edema, no gallop, no murmur Gastrointestinal: non tender, soft, no guarding, no rebound Musculoskeletal: other - Left lower extremity tender to palpation posterior popliteal Neurologic: alert, oriented x3 Psychiatric: mood/affect normal Skin: no rash, warm/dry Medical Decision Making Diagnostic Impression: Primary Impression: DVT (deep venous thrombosis) Qualified Codes: I82.402 - Acute embolism and thrombosis of unspecified deep veins of left lower extremity ER Course 70-year-old male presents with left lower extremity pain patient with DVT Patient given Lovenox Patient negative for pulmonary embolism We will start patient on DOAC spoke with patient's primary Dr. Sin will see patient as an outpatient Dispo home w/ return precautions Laboratory Tests Test 09/26/20 13:33 White Blood Count 9.7 K/UL (4.8-10.8) Red Blood Count 4.51 M/UL (4.70-6.10) L Hemoglobin 14.1 G/DL (14.2-18.0) L Hematocrit 38.1 % (42.0-52.0) L Mean Corpuscular Volume 84 FL (80-99) Mean Corpuscular Hemoglobin 31.3 PG (27.0-31.0) H Mean Corpuscular Hemoglobin Concent 37.2 G/DL (32.0-36.0) H Red Cell Distribution Width 13.1 % (11.6-14.8) Platelet Count 565 K/UL (150-450) H Mean Platelet Volume 5.9 FL (6.5-10.1) L Neutrophils (%) (Auto) 70.7 % (45.0-75.0) Lymphocytes (%) (Auto) 17.5 % (20.0-45.0) L Monocytes (%) (Auto) 5.7 % (1.0-10.0) Eosinophils (%) (Auto) 3.4 % (0.0-3.0) H Basophils (%) (Auto) 2.6 % (0.0-2.0) H Prothrombin Time 11.4 SEC (9.30-11.50) Prothrombin Time INR 1.0 (0.9-1.1) Activated Partial Thromboplast Time 27 SEC (23-33) Sodium Level 139 MMOL/L (136-145) Potassium Level 3.8 MMOL/L (3.5-5.1) Chloride Level 104 MMOL/L (98-107) Carbon Dioxide Level 30 MMOL/L (21-32) Anion Gap 5 mmol/L (5-15) Blood Urea Nitrogen 15 mg/dL (7-18) Creatinine 0.8 MG/DL (0.55-1.30) Estimated Glomerular Filtration Rate > 60 mL/min (>60) Glucose Level 111 MG/DL (74-106) H Calcium Level 8.9 MG/DL (8.5-10.1) Total Bilirubin 0.7 MG/DL (0.2-1.0) Aspartate Amino Transferase (AST) 34 U/L (15-37) Alanine Aminotransferase (ALT) 45 U/L (12-78) Alkaline Phosphatase 117 U/L (46-116) H Total Protein 7.0 G/DL (6.4-8.2) Albumin 2.7 G/DL (3.4-5.0) L Globulin 4.3 g/dL Albumin/Globulin Ratio 0.6 (1.0-2.7) L Microbiology Date/Time Source Procedure Growth Status 09/26/20 14:17 Nasopharynx SARS-CoV-2 RdRp Gene Assay - Final Complete EKG Diagnostic Results Troponin ordered: No EKG Time: 14:09 EP Interpretation: NSR, rate 91, QTc 452, no acute ST ovation, left axis deviation Rhythm Strip Diag. Results Rhythm Strip Time: 14:35 EP Interpretation: yes Rate: 79 Rhythm: NSR, no PVC's, no ectopy CT/MRI/US Diagnostic Results CT/MRI/US Diagnostic Results : Impression CTA negative for acute pulmonary embolism Patient with left DVT Last Vital Signs Date Time Temp Pulse Resp B/P (MAP) Pulse Ox O2 Delivery O2 Flow Rate FiO2 09/26/20 13:38 98.2 88 17 137/95 100 Room Air Disposition: HOME, SELF-CARE Condition: Stable Scripts Apixaban (ELIQUIS*) 5 Mg Tablet 5 MG ORAL BID for Anticoagulant for 60 Days, #60 TAB Prov: Da Francis MD 09/26/20 Referrals: [facility],REFERRING (PCP) Patient Instructions: Deep Vein Thrombosis Additional Instructions: The patient was provided with discharge instructions, notified to follow-up with a primary care doctor and or specialist in the next 24-48 hours, and to return to the ED if they have worsening of their symptoms. Please note that this report is being documented using [employer] technology. This can lead to erroneous entry secondary to incorrect interpretation by the dictating instrument. Da Francis MD Sep 26, 2020 14:35
[2020-09-26 14:38] LABS: ALBUMIN 2.7 G/DL (3.4-5.0); ALBUMIN/GLOBULIN RATIO 0.6 (1.0-2.7); ALKALINE PHOSPHATASE 117 U/L (46-116); ASPARTATE AMINO TRANSFERASE 34 U/L (15-37); BILIRUBIN,TOTAL 0.7 MG/DL (0.2-1.0)
[2020-09-26 14:54] LABS: ALANINE AMINOTRANSFERASE 45 U/L (12-78)
--- NOTE | 2020-09-26 15:11 | NUR ---
ED Nurse Note: patient off floor for ct scan. consent signed.
--- NOTE | 2020-09-26 15:25 | NUR ---
ED Nurse Note: patient back on floor from ct scan.
--- NOTE | 2020-09-26 16:11 | Diagnostic Imaging Report ---
Indication: Shortness of breath. DVT Technique: CT pulmonary angiogram performed utilizing automated exposure control with intravenous contrast. Axial, sagittal and coronal reconstructions were obtained. 3-D volumetric reconstructions were also performed. CT dose: Total DLP 234.4 mGycm; CTDI vol 42.69 mGy Comparison: None Findings: There is suboptimal opacification of the pulmonary arteries is the majority of the contrast noted within the thoracic aorta. No appreciable sagittal or large central pulmonary embolism. Reliable evaluation of the smaller subsegmental and subsegmental pulmonary arteries is limited due to suboptimal contrast opacification. The main pulmonary artery is normal in caliber. Thoracic aorta is normal in caliber. No evidence of aortic aneurysm or dissection. Imaged portions of the abdominal aorta normal in caliber. The visceral vessels unremarkable. Imaged portions of the bilateral vertebral, carotid and subclavian arteries patent. Heart size is within normal limits. No CT evidence to suggest right heart strain. No pericardial effusion. No pathologically enlarged hilar or mediastinal lymphadenopathy. Imaged portions of the thyroid is unremarkable in appearance. Patchy groundglass infiltrates are noted bilaterally with a peripheral distribution. No pleural effusion or pneumothorax. Imaged upper abdominal structures are grossly unremarkable without acute abnormality. Mild degenerative changes noted in the spine. No acute fracture identified. IMPRESSION: * Limited evaluation was suboptimal contrast opacification of the pulmonary arteries (majority of contrast noted within the thoracic aorta). No appreciable saddle or large central pulmonary embolus. * No thoracic aortic aneurysm or dissection. * Patchy groundglass opacities in a peripheral distribution highly concerning for multifocal pneumonia, particularly viral pneumonia including Covid-19. The CT scanner at [facility] is accredited by the [employer] and the scans are performed using protocols designed to limit radiation exposure to as low as reasonably achievable to attain images of sufficient resolution adequate for diagnostic evaluation.
[2020-09-26] MEDS ORDERED: ELIQUIS5 MG ORAL (16:34)
[2020-09-26 16:36] VITALS: BP 135/84
[2020-09-26 16:38] VITALS: BP 135/84
--- NOTE | 2020-09-26 16:39 | NUR ---
ED Nurse Note: Pt cleared by health care Provider for discharge. DC instructions/prescription was given and explained to pt and verbalized understanding of teachings. All medical deviecs such as ID band and iv removed. Pt is AAO x4, ambulatory and left with all personal belongings.
== END 2020-09-26 16:39 | disposition home or self-care (01) ==
LOC: EMR 13:31
DX: I82.402 Acute embolism and thrombosis of unspecified deep veins of left lower extremity (principal); I10 Essential (primary) hypertension
CPT/HCPCS: 36415; 71275; 80053; 85025; 85610; 85730; 93005; 93971; 99284; J1650; Q9967; U0002

== ENCOUNTER 2020-10-17 12:05 | Inpatient (IN) | payer MEDICARE, MEDICAID ==
[~2020-10-17] VITALS: Ht 165.1 cm; Wt 79.9 kg
[~2020-10-17 12:05] MED LIST changes: +ELIQUIS5 MG ORAL
[2020-10-17 12:39] VITALS: BP 146/84
--- NOTE | 2020-10-17 12:40 | Emergency Room Report ---
History of Present Illness General Chief Complaint: Edema Source: Patient (Rahul Lucas MD) Present Illness HPI 70-year-old male presents for evaluation. Leg swelling. Left lower extremity swelling. Was seen here in August for same problem. Noted to have a blood clot. Was discharged on anticoagulants but states his leg is still swollen. Denies chest pain or shortness of breath. States he is compliant with his medications. No other aggravating relieving factors. Denies any other associated symptoms (Rahul Lucas MD) Allergies: Coded Allergies: No Known Allergies (Unverified , 03/29/17) COVID-19 Screening Contact w/high risk pt: No Experienced COVID-19 symptoms?: No COVID-19 Testing performed RACK MAKER: No (Rahul Lucas MD) Patient History Past Medical History: HTN, other - DVT Past Surgical History: none Pertinent Family History: none Social History: Denies: smoking, alcohol use, drug use Immunizations: UTD Reviewed Nursing Documentation: PMH: Agreed; PSxH: Agreed (Rahul Lucas MD) Nursing Documentation-PMH Past Medical History: No History, Except For Hx Cardiac Problems: No Hx Hypertension: Yes Hx Cancer: No Hx Gastrointestinal Problems: No Hx Dialysis: No - Prostate surgery Hx Neurological Problems: No (Rahul Lucas MD) Review of Systems All Other Systems: negative except mentioned in HPI (Rahul Lucas MD) Physical Exam Vital Signs Date Time Temp Pulse Resp B/P (MAP) Pulse Ox O2 Delivery O2 Flow Rate FiO2 10/17/20 12:20 97.7 75 18 146/84 (104) 95 Room Air Sp02 EP Interpretation: reviewed, normal General Appearance: no apparent distress, alert, GCS 15, non-toxic Head: normocephalic, atraumatic Eyes: bilateral eye normal inspection, bilateral eye PERRL ENT: hearing grossly normal, normal pharynx, no angioedema, normal voice Neck: full range of motion, supple/symm/no masses Respiratory: chest non-tender, lungs clear, normal breath sounds, speaking full sentences Cardiovascular #1: regular rate, rhythm, no edema Cardiovascular #2: 2+ carotid (R), 2+ carotid (L), 2+ radial (R), 2+ radial (L), 2+ dorsalis pedis (R), 2+ dorsalis pedis (L) Gastrointestinal: normal bowel sounds, non tender, soft, non-distended, no guarding, no rebound Rectal: deferred Genitourinary: normal inspection, no CVA tenderness Musculoskeletal: back normal, normal range of motion, gait/station normal, swelling - LLE Neurologic: alert, motor strength/tone normal, oriented x3, sensory intact, responsive, speech normal Psychiatric: judgement/insight normal, memory normal, mood/affect normal, no suicidal/homicidal ideation Reflexes: 3+ bicep (R), 3+ bicep (L), 3+ tricep (R), 3+ tricep (L), 3+ knee (R), 3+ knee (L) Lymphatic: no adenopathy (Rahul Lucas MD) Medical Decision Making Diagnostic Impression: Primary Impression: DVT (deep venous thrombosis) Qualified Codes: I82.402 - Acute embolism and thrombosis of unspecified deep veins of left lower extremity Additional Impression: COVID-19 virus detected ER Course Ultrasound with DVTs. Heparin ordered. Using 1/2 bolus as patient on Eliquis. Discussed with admitting PA. Laboratory Tests Test 10/17/20 12:45 White Blood Count 8.8 K/UL (4.8-10.8) Red Blood Count 4.46 M/UL (4.70-6.10) L Hemoglobin 13.3 G/DL (14.2-18.0) L Hematocrit 41.4 % (42.0-52.0) L Mean Corpuscular Volume 93 FL (80-99) Mean Corpuscular Hemoglobin 29.9 PG (27.0-31.0) Mean Corpuscular Hemoglobin Concent 32.2 G/DL (32.0-36.0) Red Cell Distribution Width 13.7 % (11.6-14.8) Platelet Count 349 K/UL (150-450) Mean Platelet Volume 6.4 FL (6.5-10.1) L Neutrophils (%) (Auto) % (45.0-75.0) Lymphocytes (%) (Auto) % (20.0-45.0) Monocytes (%) (Auto) % (1.0-10.0) Eosinophils (%) (Auto) % (0.0-3.0) Basophils (%) (Auto) % (0.0-2.0) Differential Total Cells Counted 100 Neutrophils % (Manual) 35 % (45-75) L Lymphocytes % (Manual) 33 % (20-45) Monocytes % (Manual) 10 % (1-10) Eosinophils % (Manual) 22 % (0-3) H Basophils % (Manual) 0 % (0-2) Band Neutrophils 0 % (0-8) Platelet Estimate Adequate Platelet Morphology Normal Red Blood Cell Morphology Normal Prothrombin Time 11.1 SEC (9.30-11.50) Prothrombin Time INR 1.0 (0.9-1.1) Activated Partial Thromboplast Time 26 SEC (23-33) Urine Color Pale yellow Urine Appearance Clear Urine pH 5 (4.5-8.0) Urine Specific [place] 1.025 (1.005-1.035) Urine Protein Negative (NEGATIVE) Urine Glucose (UA) Negative (NEGATIVE) Urine Ketones Negative (NEGATIVE) Urine Blood Negative (NEGATIVE) Urine Nitrite Negative (NEGATIVE) Urine Bilirubin Negative (NEGATIVE) Urine Urobilinogen Normal MG/DL (0.0-1.0) Urine Leukocyte Esterase Negative (NEGATIVE) Sodium Level 140 MMOL/L (136-145) Potassium Level 3.8 MMOL/L (3.5-5.1) Chloride Level 106 MMOL/L (98-107) Carbon Dioxide Level 28 MMOL/L (21-32) Anion Gap 6 mmol/L (5-15) Blood Urea Nitrogen 14 mg/dL (7-18) Creatinine 0.7 MG/DL (0.55-1.30) Estimated Glomerular Filtration Rate > 60 mL/min (>60) Glucose Level 99 MG/DL (74-106) Calcium Level 9.3 MG/DL (8.5-10.1) Total Bilirubin 0.3 MG/DL (0.2-1.0) Aspartate Amino Transferase (AST) 20 U/L (15-37) Alanine Aminotransferase (ALT) 20 U/L (12-78) Alkaline Phosphatase 71 U/L (46-116) Total Protein 6.9 G/DL (6.4-8.2) Albumin 3.1 G/DL (3.4-5.0) L Globulin 3.8 g/dL Albumin/Globulin Ratio 0.8 (1.0-2.7) L (Davonte Bruce MD) CT/MRI/US Diagnostic Results CT/MRI/US Diagnostic Results : Imaging Test Ordered: LE duplex bilat Impression Impression: Extensive deep venous thrombosis involving the left common femoral, femoral, popliteal veins and extending into the calf veins, also demonstrated on prior study of 09/26/2020. Thrombus is mostly occlusive, but a small amount of flow seen within the common femoral and demonstrate femoral veins, indicating there may have been a slight amount of interim recanalization (Davonte Bruce MD) Last Vital Signs Date Time Temp Pulse Resp B/P (MAP) Pulse Ox O2 Delivery O2 Flow Rate FiO2 10/17/20 12:36 75 18 Room Air 10/17/20 12:20 97.7 146/84 (104) 95 (Rahul Lucas MD) Last Vital Signs Date Time Temp Pulse Resp B/P (MAP) Pulse Ox O2 Delivery O2 Flow Rate FiO2 10/17/20 20:00 70 10/17/20 15:39 97.9 17 153/97 (115) 97 10/17/20 15:25 Room Air Status: improved (Davonte Bruce MD) Disposition: ADMITTED INPATIENT Condition: Serious Rahul Lucas MD Oct 17, 2020 12:40 Davonte Bruce MD Oct 17, 2020 13:29
--- NOTE | 2020-10-17 12:42 | NUR ---
ED Nurse Note: pT WALKED INTIO ed FOR lle EDEMA AND SWELLING AND PAIN 8/10 FOR 3 WEEKS. pT HAS COME INTO ed FOR PREVIOUS SAME ISSUE. PT IS ALERT AND OX4, AMBULATORY. NO WOUNDS OR DRAINAGE OR BLEEDING.
--- NOTE | 2020-10-17 12:52 | NUR ---
LABS DONE SALINE LOCK IN PLACE STATES HE HAS PAIN WHEN HE WALKS
[2020-10-17 13:02] LABS: HEMATOCRIT 41.4 % (42.0-52.0); HEMOGLOBIN 13.3 G/DL (14.2-18.0); MEAN CORPUSCULAR VOLUME 93 FL (80-99); PLATELET COUNT 349 K/UL (150-450); RED BLOOD COUNT 4.46 M/UL (4.70-6.10); RED CELL DISTRIBUTION WIDTH 13.7 % (11.6-14.8); WHITE BLOOD COUNT 8.8 K/UL (4.8-10.8)
[2020-10-17 13:14] LABS: ANION GAP 6 mmol/L (5-15); BLOOD UREA NITROGEN 14 mg/dL (7-18); CALCIUM 9.3 MG/DL (8.5-10.1); CARBON DIOXIDE 28 MMOL/L (21-32); CHLORIDE 106 MMOL/L (98-107); CREATININE 0.7 MG/DL (0.55-1.30); POTASSIUM 3.8 MMOL/L (3.5-5.1); SODIUM 140 MMOL/L (136-145)
[2020-10-17 13:19] LABS: ALANINE AMINOTRANSFERASE 20 U/L (12-78); ALBUMIN 3.1 G/DL (3.4-5.0); ALBUMIN/GLOBULIN RATIO 0.8 (1.0-2.7); ALKALINE PHOSPHATASE 71 U/L (46-116); ASPARTATE AMINO TRANSFERASE 20 U/L (15-37); BILIRUBIN,TOTAL 0.3 MG/DL (0.2-1.0)
[2020-10-17] MEDS ORDERED: Heparin 5000 units/ml inj IV ONE (13:30)
[2020-10-17] MEDS ORDERED: Heparin 25,000u/D5W 500ml 500 ML IV SCH (13:30)
[2020-10-17 13:32] LABS: APPEARANCE,URINE CLEAR; BILIRUBIN, URINE NEGATIVE (NEGATIVE); COLOR,URINE PALE YELLOW; GLUCOSE, URINE (UA) NEGATIVE (NEGATIVE); KETONES,URINE NEGATIVE (NEGATIVE); LEUKOCYTE ESTERASE ,URINE NEGATIVE (NEGATIVE); NITRITE,URINE NEGATIVE (NEGATIVE); PH,URINE 5 (4.5-8.0); PROTEIN,URINE NEGATIVE (NEGATIVE); UROBILINOGEN,URINE NORMAL MG/DL (0.0-1.0)
--- NOTE | 2020-10-17 14:29 | NUR ---
ED Nurse Note: REPORT GIVEN TO BRUNA SHAW.
--- NOTE | 2020-10-17 15:00 | NUR ---
ED Nurse Note: PT TRANSFERRED TO TELE FLOOR WITH ALL BELONGINGS. NO ACUTE DISTRESS.
--- NOTE | 2020-10-17 15:10 | History & Physical ---
History and Physical History & Physicial Attending physician: Dr. Gallego Reason for admission: Left lower extremity swelling HPI: This is a 70-year-old male with history of DVT who presented to the ED for evaluation of recurrent left lower extremity swelling. He was seen here in August for same problem. He was noted to have extensive DVT of the left lower extremity spanning from the popliteal vein through the left common femoral vein also involving veins in the calf via venous duplex on 09/26/2020. CT angio of chest on 09/26/2020 reveals patchy groundglass infiltrates bilaterally without pleural effusion or pneumothorax. It was negative for pulmonary embolism. From his last visit, it was noted that he was to follow-up with Dr. Sin as an outpatient. He denied seeing any physician since then. Patient reports testing positive for COVID-19 from an outside source on 09/15/2020. On his repeat COVID-19 test on 10/08/2020, he tested negative for Covid. Patient denies leg pain, chest pain, fever, cough, or shortness of breath. He does report difficulty with ambulation given his leg swelling. He reports his swelling showed no improvement despite being compliant on Eliquis since last discharge. Patient was given half bolus of heparin in the ER and is awaiting admission. Patient is also on Eliquis since last discharge. PMHx: Hypertension, left lower extremity DVT Meds: Acetaminophen/hydrocodone, Eliquis, cephalexin, fluconazole, levofloxacin, phenazopyridine Allergies: No known allergies FHx: Noncontributory ROS: Negative except mentioned in HPI PE: VS: BP 146/84, HR 75, RR 18, wt 63 kg, ht 165 cm General: Patient laying in bed NAD, normal work of breathing on room air HEENT: Head examination reveals that the head is normocephalic, atraumatic without deformity or unusual swelling. Pupils are round, reactive to light and accommodation normally. There is no nystagmus, lid lag or exophthalmos. Wearing facemask Chest and Lung: Reveals clear, normal, symmetrical breath sounds with no adventitious sound. Expansion is normal. There are no surgical scars. Cardiovascular: Reveals normal S1, S2 without murmurs, rubs or clicks Abdomen: Soft with no tenderness or organomegaly Rectal: Deferred Musculoskeletal: There is no tenderness to palpation. Range of motion is normal Neurological: Cranial nerves II to XII are intact. Gait is normal without ataxi a. DTRs are normal. Babinski is downgoing. Extremities: Left side-significant pitting edema, motor and sensation intact Laboratory data: Lab testing shows WBC 8.8, hemoglobin 13.3, hematocrit 41.4 Chemistries Albumin 3.1, otherwise unremarkable Urinalysis unremarkable Coagulation panel unremarkable Impression and recommendation: 1. History of COVID-19 - Initial diagnosis on 09/15/2020 from an outside source -He remained asymptomatic respiratory jaramillo -No specific therapy for COVID-19 is indicated at this time. -Recommend COVID-X status per guideline. 2. Left lower extremity DVT - We will admit - will repeat venous duplex US - Pt received half bolus of heparin and 80 mg Lovenox in ER -We will start full dose Lovenox The care for this patient was discussed with my supervising physician. Time spent for this case was approximately 31 minutes. Rajan Ryan Oct 17, 2020 15:10
--- NOTE | 2020-10-17 15:28 | Diagnostic Imaging Report ---
. Indication: Reason For Exam: SWELL Technique: Grayscale and duplex images of the bilateral lower extremity veins Comparison: 09/26/2020 Findings: On the left, exam duplex images demonstrate thrombus within the common femoral, femoral, popliteal, and tibial veins. A small amount of flow is seen within the common femoral vein and downstream femoral vein. No flow seen within the femoral vein upstream, and no flow is seen within the popliteal vein. Thrombus also extends into the calf veins, where there is likewise no flow. Impression: Extensive deep venous thrombosis involving the left common femoral, femoral, popliteal veins and extending into the calf veins, also demonstrated on prior study of 09/26/2020. Thrombus is mostly occlusive, but a small amount of flow seen within the common femoral and demonstrate femoral veins, indicating there may have been a slight amount of interim recanalization
--- NOTE | 2020-10-17 15:30 | NUR ---
NURSE NOTES: Patient arrived to the unit from ED via gurney. Awake, A/O x4. Patient denies pain. On room air, repirations unlabored. Heart monitor placed on patient. Belongings list verified, Iv in the Left AC, site intact. Side rails up x2, bed low and locked, call light within reach with return demonstration. patient oriented to room and surroundings.
[2020-10-17 15:39] VITALS: BP 153/97
[2020-10-17] MEDS: Enoxaparin 60mg Inj SUBQ SCH (16:00)
--- NOTE | 2020-10-17 17:25 | Diagnostic Imaging Report ---
Indication: Right leg pain Technique: Grayscale and duplex images of the right lower extremity veins Comparison: None Findings: On the right, grayscale and duplex images demonstrate no evidence of intraluminal thrombus. Normal phasic Doppler waveforms, demonstrating normal augmentation response and no evidence of valvular insufficiency. Greater saphenous vein(s) and tibial veins are patent. Normal compressibility. Impression: Negative for evidence of lower extremity deep venous thrombosis on the right
--- NOTE | 2020-10-17 19:01 | NUR ---
NURSE HAND-OFF REPORT: Important Events on Shift:[admission, heparin drip DC, lovenox started] Patient Status: [FULL CODE] Diet: [regular] Pending Orders: [] Pending Results/Labs:[] Pending MD notification:[] Latest Vital Signs: Temperature 97.9 , Pulse 61 , B/P 153 /97 , Respiratory Rate 17 , O2 SAT 97 , Room Air, O2 Flow Rate . Vital Sign Comment: [] EKG Rhythm: Sinus Rhythm Rhythm change?: N MD Notified?: - MD Response: Latest Breen Fall Score: 0 Fall Risk: Low Risk Safety Measures: Call light Within Reach, Bed Alarm , Side Rails Side Rails x2, Bed position Low and Locked. Fall Precautions: Yellow Socks Yellow Gown Patient Fall Education Report given to [Samuel SHAW].
--- NOTE | 2020-10-17 19:05 | NUR ---
NURSE NOTES: Important Events on Shift: Received report from Edgard Rushing RN. Pt is awake, alert, AO x 4, denies pain. Will continue to monitor closely. Will conitnue plan of care. Patient Status: FC Diet: Regular Pending Orders: None Pending Results/Labs: None Pending MD notification: None Latest Vital Signs: Temperature 97.9 , Pulse 70 , B/P 153 /97 , Respiratory Rate 17 , O2 SAT 97 , Room Air, O2 Flow Rate . Vital Sign Comment: Stable throughout shift EKG Rhythm: Sinus Rhythm Rhythm change?: N MD Notified?: - MD Response: Latest Breen Fall Score: 0 Fall Risk: Low Risk Safety Measures: Call light Within Reach, Bed Alarm , Side Rails Side Rails x2, Bed position Low and Locked. Fall Precautions: YES Yellow Socks Yellow Gown Patient Fall Education
[2020-10-17 20:00] VITALS: BP 135/84
[2020-10-17] MEDS: Dyna-Hex 2% Top Sol 2oz TOPIC SCH (20:00)
[2020-10-18] VITALS: BP 137/80
[2020-10-18 04:00] VITALS: BP 132/87
--- NOTE | 2020-10-18 06:10 | NUR ---
NURSE HAND-OFF REPORT: Important Events on Shift: Pt admitted during AM shift 10/17/20 for L LE DVT. L leg is 63 cm at largest part of calf. Patient Status: FC Diet: reg Pending Orders: none Pending Results/Labs: none Pending MD notification: none Latest Vital Signs: Temperature 98.4 , Pulse 65 , B/P 132 /87 , Respiratory Rate 18 , O2 SAT 95 , Room Air, O2 Flow Rate . Vital Sign Comment: stable throughout shift EKG Rhythm: Sinus Rhythm Rhythm change?: N MD Notified?: - MD Response: Latest Breen Fall Score: 0 Fall Risk: Low Risk Safety Measures: YES Call light Within Reach, Bed Alarm , Side Rails Side Rails x2, Bed position Low and Locked. Fall Precautions: YES Yellow Socks Yellow Gown Door Sign Patient Fall Education Report TO BE given to Noel Valentin RN.
[2020-10-18 07:35] LABS: HEMATOCRIT 41.1 % (42.0-52.0); HEMOGLOBIN 13.6 G/DL (14.2-18.0); MEAN CORPUSCULAR VOLUME 93 FL (80-99); PLATELET COUNT 337 K/UL (150-450); RED BLOOD COUNT 4.43 M/UL (4.70-6.10); RED CELL DISTRIBUTION WIDTH 13.8 % (11.6-14.8); WHITE BLOOD COUNT 8.7 K/UL (4.8-10.8)
--- NOTE | 2020-10-18 07:45 | NUR ---
NURSE NOTES: Patient seen in bed in high fowlers position awake and eating breakfast with no complaints of pain and in no acute signs of distress. The patient has a L 20G AC IV that is saline locked, clean, patent and intact. The patient is on room air with oxygen saturation within normal limits. The patients bed is in lowest position, locked, side rails x2 and call light within reach.Patient given education on pressing call light for any further needs.
[2020-10-18 08:00] VITALS: BP 146/91
[2020-10-18 08:06] LABS: ALANINE AMINOTRANSFERASE 20 U/L (12-78); ALBUMIN 2.9 G/DL (3.4-5.0); ALBUMIN/GLOBULIN RATIO 0.8 (1.0-2.7); ALKALINE PHOSPHATASE 70 U/L (46-116); ANION GAP 5 mmol/L (5-15); ASPARTATE AMINO TRANSFERASE 21 U/L (15-37); BILIRUBIN,TOTAL 0.6 MG/DL (0.2-1.0); BLOOD UREA NITROGEN 12 mg/dL (7-18); CALCIUM 9.1 MG/DL (8.5-10.1); CARBON DIOXIDE 29 MMOL/L (21-32); CHLORIDE 106 MMOL/L (98-107); CREATININE 0.8 MG/DL (0.55-1.30); SODIUM 140 MMOL/L (136-145)
--- NOTE | 2020-10-18 08:25 | NUR ---
CASE MANAGEMENT:REVIEW 70YR OLD MALE PRESENTED TO ER CC; LLE PAIN AND SWELLING SI: DVT. COVID 97.7 75 18 146/84 95% ON RA H/H-13.3/41.4 PT=11.1 INR=1.0 APTT=26 IS: HEPARIN GTT VENOUS DUPLEX : TO TELEMETRY
[2020-10-18] MEDS: Enoxaparin 60mg Inj SUBQ SCH (08:39)
[2020-10-18] MEDS ORDERED: Dyna-Hex 2% Top Sol 2oz TOPIC SCH (09:00)
[2020-10-18 12:00] VITALS: BP 137/89
--- NOTE | 2020-10-18 12:58 | Pulmonology Progress Note ---
Subjective Interval Events: lovenox dosing changed per his weight Constitutional: Reports: no symptoms HEENT: Repors: no symptoms Respiratory: Reports: no symptoms Cardiovascular: Reports: no symptoms Gastrointestinal/Abdominal: Reports: no symptoms Allergies: Coded Allergies: No Known Allergies (Unverified , 03/29/17) Objective Last 24 Hour Vital Signs Date Time Temp Pulse Resp B/P (MAP) Pulse Ox O2 Delivery O2 Flow Rate FiO2 10/18/20 12:00 60 10/18/20 09:00 Room Air 10/18/20 08:00 97.5 73 20 146/91 (109) 94 10/18/20 08:00 71 10/18/20 04:00 59 10/18/20 04:00 98.4 65 18 132/87 (102) 95 10/18/20 00:00 97.6 64 18 137/80 (99) 95 10/18/20 00:00 62 10/17/20 21:00 Room Air 10/17/20 20:00 96.3 62 16 135/84 (101) 95 10/17/20 20:00 70 10/17/20 16:00 61 10/17/20 15:39 97.9 63 17 153/97 (115) 97 10/17/20 15:25 Room Air 10/17/20 15:20 66 10/17/20 15:00 97.7 100 20 140/82 97 Room Air Intake and Output 10/17/20 10/18/20 19:00 07:00 Intake Total 120 ml 300 ml Balance 120 ml 300 ml Intake Oral 120 ml 300 ml # Voids 1 2 # Bowel Movements 1 General Appearance: no acute distress HEENT: atraumatic Respiratory: lungs clear Cardiovascular: normal rate, regular rhythm Abdomen: soft, non tender Extremities: other - L sided LE edema Laboratory Tests 10/18/20 05:56: White Blood Count 8.7, Red Blood Count 4.43L, Hemoglobin 13.6L, Hematocrit 41.1L , Mean Corpuscular Volume 93, Mean Corpuscular Hemoglobin 30.7, Mean Corpuscular Hemoglobin Concent 33.1, Red Cell Distribution Width 13.8, Platelet Count 337, Mean Platelet Volume 6.4L, Neutrophils (%) (Auto) , Lymphocytes (%) (Auto) , Monocytes (%) (Auto) , Eosinophils (%) (Auto) , Basophils (%) (Auto) , Differential Total Cells Counted 100, Neutrophils % (Manual) 32L, Lymphocytes % (Manual) 28, Monocytes % (Manual) 10, Eosinophils % (Manual) 30H, Basophils % (Manual) 0, Band Neutrophils 0, Platelet Estimate Adequate, Platelet Morphology Normal, Red Blood Cell Morphology Normal, Prothrombin Time 11.3, Prothromb Time International Ratio 1.0, Activated Partial Thromboplast Time 27, Sodium Level 140, Potassium Level 4.0, Chloride Level 106, Carbon Dioxide Level 29, Anion Gap 5, Blood Urea Nitrogen 12, Creatinine 0.8, Estimat Glomerular Filtration Rate > 60, Glucose Level 86, Calcium Level 9.1, Total Bilirubin 0.6, Aspartate Amino T ransf (AST/SGOT) 21, Alanine Aminotransferase (ALT/SGPT) 20, Alkaline Phosphatase 70, Total Protein 6.7, Albumin 2.9L, Globulin 3.8, Albumin/Globulin Ratio 0.8L Current Medications Medications (Trade) Dose Ordered Sig/Ruby Route PRN Reason Start Time Stop Time Status Last Admin Dose Admin Chlorhexidine Gluconate (Millie-Hex 2%) 1 applic [id number] TOPIC 10/17/20 20:00 01/15/21 19:59 Dextrose (Dextrose 50%) 25 ml Q30M PRN IV Hypoglycemia 10/17/20 15:30 01/15/21 15:29 Dextrose (Dextrose 50%) 50 ml Q30M PRN IV Hypoglycemia 10/17/20 15:30 01/15/21 15:29 Enoxaparin Sodium (Lovenox) 80 mg EVERY 12 HOURS SUBQ 10/18/20 21:00 01/16/21 20:59 Ondansetron HCl (Zofran) 4 mg Q6H PRN IVP Nausea & Vomiting 10/17/20 15:30 11/16/20 15:29 Assessment/Plan Assessment/Plan 1. History of COVID-19 - Initial diagnosis on 09/15/2020 from an outside source -He remained asymptomatic respiratory jaramillo -No specific therapy for COVID-19 is indicated at this time. -Recommend COVID-X status per guideline. 2. Left lower extremity DVT - Repeat venous duplex US 10/17 no significant change since prior study - Pt received half bolus of heparin and 80 mg Lovenox in ER -We will start full dose Lovenox The care for this patient was discussed with my supervising physician. Time spent for this case was approximately 31 minutes. Rajan Ryan Oct 18, 2020 12:58
[2020-10-18] MEDS ORDERED: FLOMAX0.4 MG ORAL (13:51)
[2020-10-18] MEDS ORDERED: AMLODIPINE BESYL5 MG ORAL (13:51)
[2020-10-18 16:00] VITALS: BP 127/84
[2020-10-18] MEDS ORDERED: Warfarin Sodium 5mg ORAL SCH (17:00)
--- NOTE | 2020-10-18 19:46 | NUR ---
NURSE HAND-OFF REPORT: Important Events on Shift:[Warfarin and measuring LLE] Patient Status: [Full code] Diet: [Regular] Pending Orders: [N/A] Pending Results/Labs:[N/A] Pending MD notification:[N/A] Latest Vital Signs: Temperature 97.9 , Pulse 60 , B/P 127 /84 , Respiratory Rate 20 , O2 SAT 98 , Room Air, O2 Flow Rate . Vital Sign Comment: [] EKG Rhythm: Sinus Rhythm Rhythm change?: N MD Notified?: - MD Response: Latest Breen Fall Score: 0 Fall Risk: Low Risk Safety Measures: Call light Within Reach, Bed Alarm , Side Rails Side Rails x2, Bed position Low and Locked. Fall Precautions: Yellow Socks Yellow Gown Door Sign Patient Fall Education Report given to [COLIN Will].
--- NOTE | 2020-10-18 19:48 | NUR ---
NURSE NOTES: Patient received from COLIN Cohen. Patient is awake, alert and oriented x 4. Patient is talkative, able to speak both lithuanian and persian. Patient is on room air with no signs of acute respiratory distress noted. Patient able to use the urinal. Patient has a left 20 gauge IV on his AC, saline lock. Patient's leg is noted to be swollen. Patient has no complaints as of the moment. Bed is in the lowest position and locked, call light within reach. Will continue to monitor.
[2020-10-18 20:00] VITALS: BP 148/82
[2020-10-18] MEDS: Dyna-Hex 2% Top Sol 2oz TOPIC SCH (20:00)
[2020-10-18] MEDS: Enoxaparin 80mg Inj SUBQ SCH (20:19)
[2020-10-19] VITALS: BP 126/85
[2020-10-19 04:00] VITALS: BP 117/82
--- NOTE | 2020-10-19 07:20 | NUR ---
NURSE HAND-OFF REPORT: Important Events on Shift:[] Patient Status: [Stable] Diet: [Stable] Pending Orders: [] Pending Results/Labs:[] Pending MD notification:[] Latest Vital Signs: Temperature 99.0 , Pulse 69 , B/P 117 /82 , Respiratory Rate 18 , O2 SAT 94 , Room Air, O2 Flow Rate . Vital Sign Comment: [] EKG Rhythm: Sinus Rhythm Rhythm change?: N MD Notified?: - MD Response: Latest Breen Fall Score: 0 Fall Risk: Low Risk Safety Measures: Call light Within Reach, Bed Alarm , Side Rails Side Rails x2, Bed position Low and Locked. Fall Precautions: Yellow Socks Yellow Gown Door Sign Patient Fall Education Report given to [COLIN Cohen].
--- NOTE | 2020-10-19 07:33 | NUR ---
NURSE NOTES: Patient seen in bed in semifowlers position, eating breakfast with no complaints of pain 0/10 and under no acute signs of distress. The patient is on room air with oxygen saturation within normal limits. The patient has a L AC 20G IV saline locked that is clean patent and intact. The patients bed is in lowest position, locked, side rails x2, bed alarm in zone 1 and call light within reach.
[2020-10-19 08:00] VITALS: BP 139/83
[2020-10-19] MEDS: Enoxaparin 80mg Inj SUBQ SCH ×2 (08:45→20:46)
[2020-10-19 12:00] VITALS: BP 160/94
--- NOTE | 2020-10-19 13:29 | NUR ---
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
--- NOTE | 2020-10-19 13:44 | Pulmonology Progress Note ---
Subjective Interval Events: coumadin added Constitutional: Reports: no symptoms HEENT: Repors: no symptoms Respiratory: Reports: no symptoms Cardiovascular: Reports: no symptoms Gastrointestinal/Abdominal: Reports: no symptoms Allergies: Coded Allergies: No Known Allergies (Unverified , 03/29/17) Objective Last 24 Hour Vital Signs Date Time Temp Pulse Resp B/P (MAP) Pulse Ox O2 Delivery O2 Flow Rate FiO2 10/19/20 12:00 98.4 69 20 160/94 (116) 97 10/19/20 12:00 69 10/19/20 09:00 Room Air 10/19/20 08:00 76 10/19/20 08:00 97.7 71 18 139/83 (101) 99 10/19/20 04:00 99.0 69 18 117/82 (94) 94 10/19/20 04:00 64 10/19/20 00:00 97.6 71 18 126/85 (99) 94 10/19/20 00:00 62 10/18/20 21:00 Room Air 10/18/20 20:00 99.1 73 20 148/82 (104) 96 10/18/20 20:00 71 10/18/20 16:00 60 10/18/20 16:00 97.9 61 20 127/84 (98) 98 Intake and Output 10/18/20 10/19/20 19:00 07:00 Intake Total 240 ml Output Total 150 ml Balance 240 ml -150 ml Intake Oral 240 ml Output Urine Total 150 ml # Voids 2 2 General Appearance: no acute distress HEENT: atraumatic Respiratory: lungs clear Cardiovascular: normal rate, regular rhythm Abdomen: soft, non tender Extremities: other - L sided LE edema Laboratory Tests 10/19/20 05:47: Prothrombin Time 11.4, Prothromb Time International Ratio 1.0 Current Medications Medications (Trade) Dose Ordered Sig/Ruby Route PRN Reason Start Time Stop Time Status Last Admin Dose Admin Chlorhexidine Gluconate (Millie-Hex 2%) 1 applic DAILY@1999 TOPIC 10/17/20 20:00 01/15/21 19:59 Dextrose (Dextrose 50%) 25 ml Q30M PRN IV Hypoglycemia 10/17/20 15:30 01/15/21 15:29 Dextrose (Dextrose 50%) 50 ml Q30M PRN IV Hypoglycemia 10/17/20 15:30 01/15/21 15:29 Enoxaparin Sodium (Lovenox) 80 mg EVERY 12 HOURS SUBQ 10/18/20 21:00 01/16/21 20:59 10/19/20 08:45 Ondansetron HCl (Zofran) 4 mg Q6H PRN IVP Nausea & Vomiting 10/17/20 15:30 11/16/20 15:29 Warfarin Sodium (Coumadin per pharmacy) 1 ea DAILY PRN MISC RX PROTOCOL 10/18/20 13:30 11/17/20 13:29 Warfarin Sodium (Coumadin) 5 mg COUMADIN ORAL 10/19/20 17:00 10/19/20 17:01 Assessment/Plan Assessment/Plan 1. History of COVID-19 - Initial diagnosis on 09/15/2020 from an outside source -He remained asymptomatic respiratory jaramillo -No specific therapy for COVID-19 is indicated at this time. -Recommend COVID-X status per guideline. 2. Left lower extremity DVT - Repeat venous duplex US 10/17 no significant change since prior study - Pt received half bolus of heparin and 80 mg Lovenox in ER -We will start full dose Lovenox - Warfarin added - will order CT of abd with contrast for possible thrombosis in the abd The care for this patient was discussed with my supervising physician. Time spent for this case was approximately 31 minutes. Rajan Ryan Oct 19, 2020 13:44
[2020-10-19] MEDS ORDERED: Omnipaque-300 100ml vial INJ PRN (13:45)
--- NOTE | 2020-10-19 15:16 | Diagnostic Imaging Report ---
EXAM: CT CTA Abdomen wo/w Contrast CLINICAL HISTORY: Abdominal pain. Left leg swelling. TECHNIQUE: CT angiogram of the abdomen performed with IV contrast. 2-D and 3-D reformations are generated. All CT scans at this facility are performed using dose modulation techniques as appropriate to a performed exam including the following: automated exposure control with adjustment of the mA and/or kV according to patient size. RADIATION DOSE: CTDIvol: 72.5 mGy DLP: 577.4 mGy-cm Dose information generated by the CT scanner is available in PACS. COMPARISON: None FINDINGS: Abdominal aorta is normal in caliber. There is no aneurysm, intimal flap or dissection. Visualized major visceral branches including the celiac trunk, SMA and bilateral renal arteries are normally patent. The common, internal and external iliacs also are normal in caliber to the extent visualized. A delayed sequence is obtained to allow for better venous opacification. The IVC and partial visualization of the common iliac veins appear to opacify symmetrically. No distinct filling defects seen. There is some subcutaneous air lucencies in the left lower quadrant likely from subcutaneous injections. IMPRESSION: NO CT EVIDENCE OF SIGNIFICANT STENOSIS OR VASCULAR OCCLUSION.
[2020-10-19 16:00] VITALS: BP 146/72
[2020-10-19] MEDS ORDERED: Warfarin Sodium 5mg ORAL SCH (17:00)
--- NOTE | 2020-10-19 19:11 | NUR ---
NURSE HAND-OFF REPORT: Important Events on Shift:[MRI abd pelvis with contrast, Warfarin] Patient Status: [Full code] Diet: [Regular] Pending Orders: [N/A] Pending Results/Labs:[N/A] Pending MD notification:[N/A] Latest Vital Signs: Temperature 98.6 , Pulse 65 , B/P 146 /72 , Respiratory Rate 20 , O2 SAT 95 , Room Air, O2 Flow Rate . Vital Sign Comment: [] EKG Rhythm: Sinus Rhythm Rhythm change?: N MD Notified?: - MD Response: Latest Breen Fall Score: 0 Fall Risk: Low Risk Safety Measures: Call light Within Reach, Bed Alarm , Side Rails Side Rails x2, Bed position Low and Locked. Fall Precautions: Yellow Socks Yellow Gown Door Sign Patient Fall Education Report given to [COLIN Will].
--- NOTE | 2020-10-19 19:15 | NUR ---
NURSE NOTES: Patient received from COLIN Cohen. Patient is awake, alert and oriented x 4. Patient is able to verbalize his needs and is talkative. No complaints as of the moment. Patient is on room air with no signs of acute respiratory distress noted. Patient noted to be able ambulate. Patient has a urinal in bed. Patient has a left 20 gauge on his AC, saline locked. Bed is in the lowest position, call light within reach. Will continue to monitor.
[2020-10-19 20:00] VITALS: BP 138/88
[2020-10-19] MEDS: Dyna-Hex 2% Top Sol 2oz TOPIC SCH (20:00)
[2020-10-20] VITALS: BP 127/81
[2020-10-20 04:00] VITALS: BP 124/90
--- NOTE | 2020-10-20 07:15 | NUR ---
NURSE NOTES: Patient received from COLIN Will. patient seen in bed in semifowlers position with no complaints of pain, SOB and no acute signs of distress. Patient has a L 20G AC that is saline locked, clean patent and intact. The patient is on room air with oxygen saturation within normal limits. The patients bed si in lowest position, locked, side rails x2, and call light within reach. Patient instructed to press call light for any further needs.
--- NOTE | 2020-10-20 07:41 | NUR ---
NURSE HAND-OFF REPORT: Important Events on Shift:[] Patient Status: [Stable] Diet: [Regular diet] Pending Orders: [] Pending Results/Labs:[] Pending MD notification:[] Latest Vital Signs: Temperature 97.6 , Pulse 53 , B/P 124 /90 , Respiratory Rate 20 , O2 SAT 97 , Room Air, O2 Flow Rate . Vital Sign Comment: [] EKG Rhythm: Sinus Bradycardia Rhythm change?: Y MD Notified?: N - MD Response: Latest Breen Fall Score: 0 Fall Risk: Low Risk Safety Measures: Call light Within Reach, Bed Alarm , Side Rails Side Rails x2, Bed position Low and Locked. Fall Precautions: Yellow Socks Yellow Gown Door Sign Patient Fall Education Report given to [COLIN Cohen].
--- NOTE | 2020-10-20 07:49 | NUR ---
CASE MANAGEMENT:REVIEW 10/20/20 SI: LLE DVT. H/O COVID 97.6 69 53 20 124/90 97% ON RA IS: LOVENOX SQ Q12 : TELEMETRY STATUS DCP: FROM HOME
[2020-10-20 08:00] VITALS: BP 132/87
[2020-10-20] MEDS: Enoxaparin 80mg Inj SUBQ SCH (08:12)
--- NOTE | 2020-10-20 10:06 | Pulmonology Progress Note ---
Subjective Interval Events: coumadin added Constitutional: Reports: no symptoms HEENT: Repors: no symptoms Respiratory: Reports: no symptoms Cardiovascular: Reports: no symptoms Gastrointestinal/Abdominal: Reports: no symptoms Allergies: Coded Allergies: No Known Allergies (Unverified , 03/29/17) Objective Last 24 Hour Vital Signs Date Time Temp Pulse Resp B/P (MAP) Pulse Ox O2 Delivery O2 Flow Rate FiO2 10/20/20 09:00 Room Air 10/20/20 08:00 97.7 69 18 132/87 (102) 96 10/20/20 08:00 69 10/20/20 04:00 53 10/20/20 04:00 97.6 69 20 124/90 (101) 97 10/20/20 00:00 63 10/20/20 00:00 98.2 67 20 127/81 (96) 95 10/19/20 21:00 Room Air 10/19/20 20:00 74 10/19/20 20:00 98.6 71 20 138/88 (105) 94 10/19/20 16:00 98.6 64 20 146/72 (96) 95 64 10/19/20 16:00 65 10/19/20 12:00 98.4 69 20 160/94 (116) 97 10/19/20 12:00 69 Intake and Output 10/19/20 10/20/20 19:00 07:00 Intake Total 1100 ml Output Total 350 ml Balance 1100 ml -350 ml Intake Oral 1100 ml Output Urine Total 350 ml # Voids 3 4 General Appearance: no acute distress HEENT: atraumatic Respiratory: lungs clear Cardiovascular: normal rate, regular rhythm Abdomen: soft, non tender Extremities: other - L sided LE edema Laboratory Tests 10/20/20 07:33: Prothrombin Time 11.4, Prothromb Time International Ratio 1.0 Current Medications Medications (Trade) Dose Ordered Sig/Ruby Route PRN Reason Start Time Stop Time Status Last Admin Dose Admin Barium Sulfate (Readi-Cat 2) 450 ml NOW PRN ORAL Radiology Procedure 10/19/20 13:45 10/21/20 13:44 Chlorhexidine Gluconate (Millie-Hex 2%) 1 applic DAILY@1999 TOPIC 10/17/20 20:00 01/15/21 19:59 Clonidine HCl (Catapres Tab) 0.1 mg Q8H PRN ORAL htn 10/19/20 13:45 01/17/21 13:44 Dextrose (Dextrose 50%) 25 ml Q30M PRN IV Hypoglycemia 10/17/20 15:30 01/15/21 15:29 Dextrose (Dextrose 50%) 50 ml Q30M PRN IV Hypoglycemia 10/17/20 15:30 01/15/21 15:29 Enoxaparin Sodium (Lovenox) 80 mg EVERY 12 HOURS SUBQ 10/18/20 21:00 01/16/21 20:59 10/20/20 08:12 Iohexol (OMNIPAQUE-300 100ml) 100 ml NOW PRN INJ Radiology Procedure 10/19/20 13:45 10/21/20 13:44 Ondansetron HCl (Zofran) 4 mg Q6H PRN IVP Nausea & Vomiting 10/17/20 15:30 11/16/20 15:29 Warfarin Sodium (Coumadin per pharmacy) 1 ea DAILY PRN MISC RX PROTOCOL 10/18/20 13:30 11/17/20 13:29 Warfarin Sodium (Coumadin) 7.5 mg COUMADIN ORAL 10/20/20 17:00 10/20/20 17:01 Assessment/Plan Assessment/Plan 1. History of COVID-19 - Initial diagnosis on 09/15/2020 from an outside source -He remained asymptomatic respiratory jaramillo -No specific therapy for COVID-19 is indicated at this time. -Recommend COVID-X status per guideline. 2. Left lower extremity DVT - Repeat venous duplex US 10/17 no significant change since prior study - Pt received half bolus of heparin and 80 mg Lovenox in ER -We will start full dose Lovenox - Warfarin added - CTA of abd negative for stenosis or vascular occlusion - INR is still 1 -> will monitor daily - once his INR is optimal, will dc pt with Warfarin. continue warfarin for 3- 6 mo and re-evaluate The care for this patient was discussed with my supervising physician. Time spent for this case was approximately 31 minutes. Rajan Ryan Oct 20, 2020 10:06
--- NOTE | 2020-10-20 10:06 | NUR ---
NURSE NOTES: Alerted patient of D/C being held off until INR is in therapeutic range due to administration of warfarin. Patient understood and is in compliance with order.
[2020-10-20 12:00] VITALS: BP 139/83
[2020-10-20] MEDS ORDERED: LOVENOX10 M2 SUBQ (14:11)
[2020-10-20] MEDS ORDERED: JANTOVEN5 MG ORAL (14:11)
--- NOTE | 2020-10-20 14:14 | Discharge Instructions ---
Discharge Instructions Discharge Instructions Follow up with: Dr. Sin within 30 days Activity: as tolerated For Congestive Heart Failure Reminder Report to your physician any weight gain of 5 pounds or more in one week. Rajan Ryan Oct 20, 2020 14:14
[2020-10-20 16:00] VITALS: BP 136/82
[2020-10-20] MEDS ORDERED: Warfarin Sod 5 MG, Warfarin Sod 2.5 MG ORAL SCH ×2 (17:00)
--- NOTE | 2020-10-20 19:57 | NUR ---
NURSE HAND-OFF REPORT: Important Events on Shift:[D/C Planning, Anticoag therapy] Patient Status: [Full code] Diet: [Regular Diet] Pending Orders: [N/A] Pending Results/Labs:[N/A] Pending MD notification:[N/A] Latest Vital Signs: Temperature 97.9 , Pulse 69 , B/P 136 /82 , Respiratory Rate 20 , O2 SAT 98 , Room Air, O2 Flow Rate . Vital Sign Comment: [] EKG Rhythm: Sinus Rhythm Rhythm change?: N MD Notified?: N - MD Response: Latest Breen Fall Score: 0 Fall Risk: Low Risk Safety Measures: Call light Within Reach, Bed Alarm , Side Rails Side Rails x2, Bed position Low and Locked. Fall Precautions: Yellow Socks Yellow Gown Door Sign Patient Fall Education Report given to [COLIN Glover].
[2020-10-20 20:00] VITALS: BP 131/79
--- NOTE | 2020-10-20 20:45 | NUR ---
NURSE NOTES: Patient discharged to [facility] via [facility]. Report given to transporter by Lima Vargas RN. Spoke with Deputy Fire Chief Lalitha Amin, who confirmed patient going to room 38A. IV access, nuclear monitoring technician and ID band removed. Patient's belongings sent with the patient.
--- NOTE | 2020-10-24 13:42 | Discharge Summary ---
Discharge Summary Discharge Summary _ Date of admission: 10/17/2020 Date of discharge: 10/20/[address] Gallego History of Present Illness and Brief Hospital Course Mr. Brumfield is a 70-year-old male with history of hypertension, and left lower extremity DVT, who presented to the ED for evaluation of persisent left lower extremity swelling. He was seen here at [facility] in August for the same problem. He was noted to have extensive DVT of the left lower extremity spanning from the popliteal vein through the left common femoral vein also involving veins in the calf via venous duplex on 09/26/2020. CT angio of the chest on 09/26/2020 revealed patchy groundglass infiltrates bilaterally wit hout pleural effusion or pneumothorax. It was negative for pulmonary embolism. From the last visit, it was noted that he was to follow-up with Dr. Sin as an outpatient. He denied seeing any physician since then. Patient reported compliance of Eliquis that he was prescribed on the last discharge. Patient reported testing positive for COVID-19 from an outside source on 2019. On his repeat Covid-19 test on 10/08/2020, he tested negative for COVID- 19. Patient was given half bolus of heparin in the ER and was admitted to the hospital for further management. Since the initial diagnosis of COVID-19, he remained asymptomatic respiratory- jaramillo and no specific therapy for COVID-19 was indicated during this visit. A repeat venous duplex ultrasound of lower extremity on 10/17/2020 showed no significant change since prior study. CT angio of abdomen was negative for stenosis or vascular occlusion. He was discontinued with Eliquis and was started on Lovenox. Warfarin was added to his regimen. His INR was monitored daily. By admission day 3, patient was medically stable for discharge to halfway facility so that his INR could be monitored and pt cound continue to receive warfarin and Lovenox. He is to continue warfarin for 3 to 6 months and follow-up with Dr. Sin for reevaluation of his left lower extremity. He was discharged to SNF on 10/20/2020 in stable condition. Consultants: None Discharge Condition Stable Discharge Activity Ambulatory Final diagnoses History of COVID-19 Left lower extremity DVT History of hypertension I have been assigned to dictate discharge summary for this account. Rajan Ryan Oct 24, 2020 13:42
== END 2020-10-20 20:45 | DRG 301 ==
LOC: EMR 12:48 → 2E 13:34 → EDBEDREQ 14:01 → 2E 10-20 18:11
DX: I82.432 Acute embolism and thrombosis of left popliteal vein (principal); I82.412 Acute embolism and thrombosis of left femoral vein; I10 Essential (primary) hypertension; Z86.16 Personal history of COVID-19; Z79.01 Long term (current) use of anticoagulants
CPT/HCPCS: 36415; 74175; 80053; 81003; 85007; 85025; 85610; 85730; 93005; 93971; 96374; 99285; U0002

== ENCOUNTER 2020-10-31 10:21 | Emergency (ER) | payer MEDICARE, MEDICAID ==
[~2020-10-31] VITALS: Ht 165.1 cm; Wt 72.6 kg
[~2020-10-31 10:21] MED LIST changes: +AMLODIPINE BESYL5 MG ORAL; +JANTOVEN5 MG ORAL; +LOVENOX10 M2 SUBQ
--- NOTE | 2020-10-31 10:53 | NUR ---
Oly bhaktawendy in [facility] - 10/31/20 at 1054 by MARTINA Received patient from home. He stated that he had been inthe hospuita
--- NOTE | 2020-10-31 10:54 | NUR ---
Note yousuf in EDM - 10/31/20 at 1109 by MARTINA Received patient from home. Patient reported that he had been in the hospital recently in September for the same problem of swelling of his left leg and was diagnosed with DVT which involved fem pop vein through left common fem pop vein. He stated that he was given 7mg Coumadin but only a one day supply for his previous diagnosis of DVT. Prior medical history suggest that patient was prescribed to be on Coudin for a duration of three month and under harshil care of His left leg has since been swollen for 3 days which brought him to the hospital today. His left leg is swollen from his knee to his foot. Reported slight pain but nothing that immobilizes him.
[2020-10-31] MEDS ORDERED: WARFARIN SODIUM6 MG ORAL (11:02)
--- NOTE | 2020-10-31 11:07 | Emergency Room Report ---
History of Present Illness General Chief Complaint: Edema Source: Patient Present Illness HPI Patient is a 70-year-old male presents for increased left upper and lower extremity swelling. Patient had recent ultrasound imaging which showed DVT. Had been started on Coumadin 6 mg. Patient had run out of the medication. Denies any vomiting or diarrhea. Denies any bleeding. Denies any other current complaints. No chest discomfort or shortness of breath. 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 COVID-19 Screening: Negative COVID-19 COVID-19 Testing Source: nasal Patient History Past Medical History: see triage record Reviewed Nursing Documentation: PMH: Agreed; PSxH: Agreed Nursing Documentation-PMH Past Medical History: No History, Except For Hx Cardiac Problems: No - DVT Hx Hypertension: Yes Hx Asthma: No Hx Cancer: No Hx Gastrointestinal Problems: No Hx Dialysis: No - Prostate surgery Hx Neurological Problems: No Review of Systems All Other Systems: negative except mentioned in HPI Physical Exam Vital Signs Date Time Temp Pulse Resp B/P (MAP) Pulse Ox O2 Delivery O2 Flow Rate FiO2 10/31/20 10:25 98.2 80 17 138/90 (106) 97 Room Air Sp02 EP Interpretation: reviewed, normal General Appearance: normal inspection, well appearing, no apparent distress, alert, GCS 15 Head: atraumatic ENT: normal ENT inspection, hearing grossly normal, normal voice Neck: normal inspection, full range of motion, supple, no bony tend Respiratory: normal inspection, lungs clear, normal breath sounds, no respiratory distress, no retraction, no wheezing Cardiovascular #1: regular rate, rhythm, no edema Gastrointestinal: normal inspection, normal bowel sounds, non tender, soft, no guarding, no hernia Genitourinary: no CVA tenderness Musculoskeletal: normal inspection, back normal, normal range of motion, other - Left lower extremity swelling, brisk pulses. Neurologic: alert, responsive, speech normal, normal inspection Psychiatric: normal inspection, judgement/insight normal, mood/affect normal Medical Decision Making Diagnostic Impression: Primary Impression: DVT (deep venous thrombosis) ER Course Patient presents for left lower extremity swelling. Differential diagnosis include was not limited to deep venous thrombosis, dependent edema among others. Patient has a benign exam and does not appear to require any imaging or laboratory testing at this time. Patient has known history of DVT. He was anticoagulated with Lovenox. He was given refill of his Coumadin. Patient was advised to follow-up with his doctor for recheck. He is advised to return if worse. Patient does not report any chest discomfort consistent with a pulmonary embolism. Is advised to return if worse. This medical record is generated with [employer] product trainer software. There may be some product trainer discrepancies related to use of this software Last Vital Signs Date Time Temp Pulse Resp B/P (MAP) Pulse Ox O2 Delivery O2 Flow Rate FiO2 10/31/20 10:25 98.2 80 17 138/90 (106) 97 Room Air Disposition: HOME, SELF-CARE Scripts Warfarin Sod* (WARFARIN SOD*) 6 Mg Tablet 6 MG ORAL DAILY for Anticoagulant, #60 TAB Prov: Robert Johansen MD 10/31/20 Patient Instructions: Deep Vein Thrombosis Additional Instructions: Follow up with your doctor for recheck in 2-3 days. Return if worse. Robert Johansen MD Oct 31, 2020 11:07
--- NOTE | 2020-10-31 11:08 | NUR ---
Received patient from home. Patient reported that he had been in the hospital recently in September for the same problem of swelling of his left leg and was diagnosed with DVT which involved fem pop vein through left common fem pop vein. He stated that he was given 7mg Coumadin but only a one day supply for his previous diagnosis of DVT. Prior medical history suggest that patient was prescribed to be on Coudin for a duration of three month and under harshil care of Dr. Sin. His left leg has since been swollen for 3 days which brought him to the hospital today. His left leg is swollen from his knee to his foot. Reported slight pain but nothing that immobilizes him. Is ambulatory and AAOX4.
--- NOTE | 2020-10-31 11:09 | NUR ---
Patient scheduled for discharge. New prescription sent to pharmacy for Coumadin 6mg qd.
[2020-10-31] MEDS ORDERED: Enoxaparin 80mg Inj SUBQ SCH (11:15)
[2020-10-31 11:23] VITALS: BP 101/71
== END 2020-10-31 12:00 | disposition home or self-care (01) ==
LOC: EMR 11:03
DX: I82.402 Acute embolism and thrombosis of unspecified deep veins of left lower extremity (principal); I10 Essential (primary) hypertension
CPT/HCPCS: 99282; J1650

== ENCOUNTER 2020-11-09 10:07 | Emergency (ER) | payer MEDICARE, MEDICAID ==
[~2020-11-09] VITALS: Ht 165.1 cm; Wt 74.8 kg
[~2020-11-09 10:07] MED LIST changes: +WARFARIN SODIUM6 MG ORAL
[2020-11-09] MEDS ORDERED: Bacitracin Oint UD TOPIC ONE (11:15)
[2020-11-09 11:37] VITALS: BP 140/79
--- NOTE | 2020-11-09 11:42 | Emergency Room Report ---
History of Present Illness General Chief Complaint: Edema Source: Patient, Medical Record Present Illness HPI Patient returns to the emergency department with increased swelling and pain in his left leg. Also 3 days ago he was wearing shoes and a blister popped up and broke in the anterior ankle area. There is clear fluid not pus that was drained. He denies any fevers or chills. Approximately 4 5 days ago he stopped using the JUSTYN hose because they were causing increased pain due to increased swelling of his lower leg. No hemoptysis or pleuritic chest pain. No bleeding gums, hematuria or hematochezia. He rates the pain in his legs 6/10 to me but denies pain to the triage nurse. The patient was hospitalized on heparin as he developed a worsened DVT on the left-hand side while on Eliquis. Apparently when he was discharged from that hospital there were several days that he was not taking medication. He was switched to Coumadin and says his blood was tested yesterday but he does not have the results. Patient tested positive for Covid on September 26 and October 20. He denies any Covid symptoms at this time. No fevers, chills, sore throat, palpitations, nausea, vomiting, diarrhea, dysuria, abdominal pain, shortness of breath, depression, anxiety, visual changes, dizziness, headache. Allergies: Coded Allergies: No Known Allergies (Unverified , 03/29/17) COVID-19 Screening Contact w/high risk pt: No Experienced COVID-19 symptoms?: No COVID-19 Testing performed [employer]ICAL B[employer]ING [employer]: Yes COVID-19 Screening: Positive COVID-19 COVID-19 Testing Source: nasal Patient History Past Medical History: see triage record, old chart reviewed Past Surgical History: other - Prostate Social History: Denies: smoking, alcohol use, drug use Social History Narrative Retired Reviewed Nursing Documentation: PMH: Agreed; PSxH: Agreed Nursing Documentation-PMH Past Medical History: No History, Except For Hx Cardiac Problems: No - DVT Hx Hypertension: Yes Hx Asthma: No Hx Cancer: No Hx Gastrointestinal Problems: No Hx Dialysis: No - Prostate surgery Hx Neurological Problems: No Review of Systems All Other Systems: negative except mentioned in HPI Physical Exam Vital Signs Date Time Temp Pulse Resp B/P (MAP) Pulse Ox O2 Delivery O2 Flow Rate FiO2 11/09/20 10:52 97.9 80 18 157/90 (112) 97 Room Air Sp02 EP Interpretation: reviewed, normal General Appearance: well appearing, no apparent distress, GCS 15 Head: normocephalic Eyes: bilateral eye normal inspection, bilateral eye PERRL, bilateral eye EOMI ENT: moist mucus membranes Neck: supple Respiratory: lungs clear, normal breath sounds Cardiovascular #1: regular rate, rhythm, edema - Left lower leg Cardiovascular #2: 2+ radial (R), 2+ dorsalis pedis (L) - Good capillary fill Gastrointestinal: normal inspection, normal bowel sounds, non tender, no mass, non-distended Musculoskeletal: back normal, normal range of motion, calf tenderness, gait/station normal - With minimal limp Neurologic: alert, oriented x3, grossly normal Psychiatric: mood/affect normal Skin: warm/dry, other - Open lesion anterior ankle without erythema however there is some venous mottling of the left lower leg with minimal cyanosis Medical Decision Making Diagnostic Impression: Primary Impression: Left femoral vein DVT Qualified Codes: I82.412 - Acute embolism and thrombosis of left femoral vein Additional Impression: Subtherapeutic anticoagulation ER Course Patient presents with worsening swelling of the left lower leg with history of DVT now on Coumadin. Differential includes worsening DVT, cellulitis, pulmonary embolus amongst others. Patient evaluated with EKG, chest x-ray and labs. Noninvasive vascular study will be performed again. Patient is given Tylenol for pain. Patient placed on playground monitor. There is no evidence of pulmonary embolus at this time based on history and physical. EKG normal sinus rhythm normal EKG. INR 1.8 Duplex with occlusion of common femoral vein. This extends down through the entire leg. Lovenox 70 mg given subcutaneously discussed with Dr. Vyas. Discussed with Dr. Vyas who accepts at [facility]. Laboratory Tests Test 11/09/20 11:23 White Blood Count 6.1 K/UL (4.8-10.8) Red Blood Count 4.79 M/UL (4.70-6.10) Hemoglobin 14.3 G/DL (14.2-18.0) Hematocrit 44.6 % (42.0-52.0) Mean Corpuscular Volume 93 FL (80-99) Mean Corpuscular Hemoglobin 29.8 PG (27.0-31.0) Mean Corpuscular Hemoglobin Concent 32.0 G/DL (32.0-36.0) Red Cell Distribution Width 13.4 % (11.6-14.8) Platelet Count 306 K/UL (150-450) Mean Platelet Volume 6.0 FL (6.5-10.1) L Neutrophils (%) (Auto) 48.1 % (45.0-75.0) Lymphocytes (%) (Auto) 31.5 % (20.0-45.0) Monocytes (%) (Auto) 7.2 % (1.0-10.0) Eosinophils (%) (Auto) 11.4 % (0.0-3.0) H Basophils (%) (Auto) 1.8 % (0.0-2.0) Prothrombin Time 18.7 SEC (9.30-11.50) H Prothrombin Time INR 1.8 (0.9-1.1) H Urine Color Pale yellow Urine Appearance Clear Urine pH 5 (4.5-8.0) Urine Specific [place] 1.015 (1.005-1.035) Urine Protein Negative (NEGATIVE) Urine Glucose (UA) Negative (NEGATIVE) Urine Ketones Negative (NEGATIVE) Urine Blood Negative (NEGATIVE) Urine Nitrite Negative (NEGATIVE) Urine Bilirubin Negative (NEGATIVE) Urine Urobilinogen Normal MG/DL (0.0-1.0) Urine Leukocyte Esterase Negative (NEGATIVE) Sodium Level 145 MMOL/L (136-145) Potassium Level 4.1 MMOL/L (3.5-5.1) Chloride Level 108 MMOL/L (98-107) H Carbon Dioxide Level 29 MMOL/L (21-32) Anion Gap 8 mmol/L (5-15) Blood Urea Nitrogen 13 mg/dL (7-18) Creatinine 0.7 MG/DL (0.55-1.30) Estimated Glomerular Filtration Rate > 60 mL/min (>60) Glucose Level 95 MG/DL (74-106) Calcium Level 9.4 MG/DL (8.5-10.1) Total Bilirubin 0.4 MG/DL (0.2-1.0) Aspartate Amino Transferase (AST) 12 U/L (15-37) L Alanine Aminotransferase (ALT) 20 U/L (12-78) Alkaline Phosphatase 67 U/L (46-116) Total Creatine Kinase 54 U/L (26-308) Troponin I 0.000 ng/mL (0.000-0.056) Pro-B-Type Natriuretic Peptide 134 pg/mL (0-125) H Total Protein 7.4 G/DL (6.4-8.2) Albumin 3.4 G/DL (3.4-5.0) Globulin 4.0 g/dL Albumin/Globulin Ratio 0.9 (1.0-2.7) L EKG Diagnostic Results Rate: normal Rhythm: NSR ST Segments: no acute changes Rhythm Strip Diag. Results EP Interpretation: yes Rhythm: NSR, no PVC's, no ectopy Chest X-Ray Diagnostic Results Chest X-Ray Diagnostic Results : Chest X-Ray Ordered: Yes # of Views/Limited/Complete: 1 View Indication: Other EP Interpretation: Yes Interpretation: no consolidation, no effusion, no pneumothorax Impression: No acute disease Electronically Signed by: Electronically signed by Davonte Bruce MD CT/MRI/US Diagnostic Results CT/MRI/US Diagnostic Results : Imaging Test Ordered: Duplex left leg Impression Occlusion to common femoral Last Vital Signs Date Time Temp Pulse Resp B/P (MAP) Pulse Ox O2 Delivery O2 Flow Rate FiO2 11/09/20 15:23 76 20 160/92 100 Room Air 11/09/20 14:44 97.9 100 Status: improved Disposition: SHORT-TERM HOSP Condition: Serious Referrals: [facility],REFERRING (PCP) Davonte Bruce MD Nov 09, 2020 11:42
[2020-11-09 11:52] LABS: APPEARANCE,URINE CLEAR; BILIRUBIN, URINE NEGATIVE (NEGATIVE); COLOR,URINE PALE YELLOW; GLUCOSE, URINE (UA) NEGATIVE (NEGATIVE); KETONES,URINE NEGATIVE (NEGATIVE); LEUKOCYTE ESTERASE ,URINE NEGATIVE (NEGATIVE); NITRITE,URINE NEGATIVE (NEGATIVE); PH,URINE 5 (4.5-8.0); PROTEIN,URINE NEGATIVE (NEGATIVE); UROBILINOGEN,URINE NORMAL MG/DL (0.0-1.0)
[2020-11-09 11:56] LABS: BASOPHILS % (AUTO) 1.8 % (0.0-2.0); EOSINOPHILS % (AUTO) 11.4 % (0.0-3.0); HEMATOCRIT 44.6 % (42.0-52.0); HEMOGLOBIN 14.3 G/DL (14.2-18.0); LYMPHOCYTES % (AUTO) 31.5 % (20.0-45.0); MEAN CORPUSCULAR VOLUME 93 FL (80-99); MONOCYTES % (AUTO) 7.2 % (1.0-10.0); NEUTROPHILS % (AUTO) 48.1 % (45.0-75.0); PLATELET COUNT 306 K/UL (150-450); RED BLOOD COUNT 4.79 M/UL (4.70-6.10); RED CELL DISTRIBUTION WIDTH 13.4 % (11.6-14.8); WHITE BLOOD COUNT 6.1 K/UL (4.8-10.8)
[2020-11-09 12:00] LABS: INR 1.8 (0.9-1.1)
[2020-11-09 12:04] LABS: ANION GAP 8 mmol/L (5-15); BLOOD UREA NITROGEN 13 mg/dL (7-18); CALCIUM 9.4 MG/DL (8.5-10.1); CARBON DIOXIDE 29 MMOL/L (21-32); CHLORIDE 108 MMOL/L (98-107); CREATININE 0.7 MG/DL (0.55-1.30); POTASSIUM 4.1 MMOL/L (3.5-5.1); SODIUM 145 MMOL/L (136-145)
[2020-11-09 12:18] LABS: ALANINE AMINOTRANSFERASE 20 U/L (12-78); ALBUMIN 3.4 G/DL (3.4-5.0); ALBUMIN/GLOBULIN RATIO 0.9 (1.0-2.7); ALKALINE PHOSPHATASE 67 U/L (46-116); ASPARTATE AMINO TRANSFERASE 12 U/L (15-37); BILIRUBIN,TOTAL 0.4 MG/DL (0.2-1.0); CREATINE KINASE 54 U/L (26-308)
[2020-11-09] MEDS ORDERED: Enoxaparin 80mg Inj SUBQ STA (12:43)
[2020-11-09] MEDS ORDERED: Enoxaparin 80mg Inj SUBQ SCH (13:45)
--- NOTE | 2020-11-09 14:46 | NUR ---
report given to sae patient is to be transferd to [facility] via ambulance
[2020-11-09 15:23] VITALS: BP 160/92
--- NOTE | 2020-11-09 16:31 | Diagnostic Imaging Report ---
Indication: Left lower extremity pain and edema Technique: Bess scale and duplex images of the left lower extremity veins Comparison: 10/17/2020 Findings: Thrombus is seen in the left common femoral vein, the left femoral vein, and in the left popliteal vein, resulting in diminished flow and loss of compressibility. The posterior tibial and peroneal veins also contain thrombus with resultant noncompressibility. This is also demonstrated on the previous exam as well as an earlier exam in August 2020 Impression: Positive for persistent left lower extremity deep venous thrombosis and calf vein thrombosis
--- NOTE | 2020-11-10 13:19 | Diagnostic Imaging Report ---
Indication: Cough Technique: One view of the chest Comparison: 11/09/2020 Findings: Lungs and pleural spaces are clear. Heart size is normal. The aorta is tortuous Impression: No acute process
--- NOTE | 2020-11-10 15:00 | Cardiology Report ---
APPROVED REPORT EKG Measurement Heart [id number] <Conclusion> Normal sinus rhythm Normal ECG
== END 2020-11-09 15:30 | disposition short-term general hospital (02) ==
LOC: EMR 10:44 → EDBEDREQ 11:22 → EMR 15:30
DX: I82.412 Acute embolism and thrombosis of left femoral vein (principal); R79.1 Abnormal coagulation profile; I10 Essential (primary) hypertension; Z86.16 Personal history of COVID-19
CPT/HCPCS: 36415; 71045; 80053; 81003; 82550; 83880; 84484; 85025; 85610; 93005; 93971; 99285; J1650